=== PATIENT | female | born 1970 | race Caucasian/White ===

== ENCOUNTER 2016-03-03 19:50 | Inpatient (IN) | payer MEDICARE, OTHER ==
[~2016-03-03] VITALS: Ht 172.7 cm; Wt 76.6 kg
[~2016-03-03 19:50] MED LIST: AMPH30TA3 PO; ARIP30TA PO; GLIP5TAB26 PO; HYDR-4003 PO; INSU100V28 SUBQ; INSU100V7 SUBQ; LORA1TAB PO; METF1000 PO; PALI9TAB PO; SERT100T9 PO; SULF1TAB7 PO; ZLP5T PO
[2016-03-03 20:17] VITALS: BP 122/79; PULSE 107; RESP 18; O2SAT 98
--- NOTE | 2016-03-03 20:42 | ED.REPORT ---
HPI-General Illness Date of Service Mar 03, 2016 ED Provider: Mine Putnam MD History of Present Illness: Ms. Shira Cárdenas is a 45-year-old female past medical history significant for uncontrolled diabetes, MRSA cellulitis 10, ectopic , and significant history of psychiatric instability who presents to get evaluated emergency department for four-day history of left lower calcaneal abscess in 3 day history of left fifth metatarsal diabetic foot wound and cellulitis of the left foot today, who was seen at urgent care given 1 g of Rocephin in 1300 mL of an abscess and sent here. She denies fever or chills, vomiting, chest pain, shortness of breath, abdominal pain, diarrhea. She reports mild nausea severe left lower extremity pain and constipation. Nursing Notes Stated Complaint: DIABETIC FOOT SORES Chief Complaint: General Complaint Nursing Notes Reviewed: Yes Allergies: Coded Allergies: sitagliptin (Verified Allergy, Severe, hallucinations, 05/09/15) acetaminophen (Verified Adverse Reaction, Intermediate, n/v, 05/09/15) oxycodone (Verified Adverse Reaction, Intermediate, n/v, 05/09/15) Scheduled Amphet Asp/Amphet/D-Amphet (Adderall) 30 Mg Tablet 30 MG PO QID Aripiprazole (Abilify) 30 Mg Tablet 15 MG PO DAILY Glipizide ER (Glipizide ER) 5 Mg Tab.er.24 5 MG PO BID Insulin Glargine (Lantus U100 Insulin Vial) 100 Unit/Ml Vial 60 UNIT SUBQ BID Insulin Regular, Human (HUMulin-R U100 Insulin Vial) 100 Unit/1 Ml Vial 8 UNIT SUBQ TID-INSULIN Metformin (Glucophage) 1,000 Mg Tablet 1,000 MG PO BIDWM Paliperidone ER (Invega) 9 Mg Tablet.er 9 MG PO DAILY Sertraline HCl (Sertraline) 100 Mg Tablet 150 MG PO HS Sulfamethoxazole/Trimeth 800-160 mg (Bactrim DS) 1 Each Tablet 2 TABLET PO BID Scheduled PRN Hydrocodone-Acetaminophen 5-325 mg (Hydrocodone-Acetaminophen 5-325 mg) 1 Each Tablet 1 EACH PO Q6 PRN PRN For Pain Lorazepam (Lorazepam) 1 Mg Tablet 1 MG PO QID PRN PRN For Anxiety Zolpidem (Ambien) 5 Mg Tab 10 MG PO HS PRN PRN For Insomnia General Time Seen by MD: 20:40 Chief Complaint Other (Cellulitis) Sudden in Onset?: Yes Past Medical History MRSA 10x Dental Abscess Nephrolithiasis Psychiatric Surgery Ovarian ectopic Smoking 1 pack / day 30 years ETOH quit 17 years ago Marijuana - occasional Denies substance use Past Medical History Per old reports -DM type two -Bipolar disorder -Ectopic ovarian cyst -Kidney stone -Migraines -Depression Past Surgical History "Kidney surgery" per old reports Smoking History Current Every Day Smoker Social History Alcohol Use: Denies alcohol use Drug Use: Denies drug use Occupation lives with roommates Ambulatory Status Independent Review of Systems Full Review of Systems GI: Reports: Constipation, Nausea Musculoskeletal: Reports: Extremity pain (left foot) Complete sys rev & neg: except as marked. Physical Exam General: Pleasant lady sitting up in bed with left foot hanging off the bed, appears older than stated age, well-developed, well-nourished, appropriately interactive HEENT: Normocephalic, atraumatic. External ears without defect. Pupils equal, round, and reactive to light and accommodation. Anicteric sclerae, moist conjunctivae, and no lid lag. Oropharynx free of erythema and cobble stoning with moist mucosa. Poor dental health Neck: Supple with full range of motion. No jugular venous distension. No bruits. No lymphadenopathy or thyromegaly. Cardiovascular: Regular rate and rhythm with no murmurs, rubs, or gallops appreciated Pulmonary: Clear to auscultation bilaterally with no crackles, wheezes, or rhonchi. Normal respiratory effort with no use of accessory muscles. Abdomen: Bowel tones present. Soft, nontender, nondistended. No hepatosplenomegaly or masses appreciated. Extremities: No clubbing, cyanosis, edema, or lymphadenopathy appreciated. Left lower extremity has calcaneal 3 cm closed and raised wound as well as a left lateral mid fifth metatarsal wound from skin split and left foot dorsal erythema with early tracking up lower extremity. Skin: Normal temperature, turgor, and texture; no rash, ulcers, or subcutaneous nodules appreciated. Neurological: Cranial nerves grossly intact. Normal muscle strength, tone, and bulk. Reflexes, coordination, and sensory function within normal limits. No known gait impairment. Psychiatric: Normal mood and affect. Alert and oriented to person, place, and time. Vital Signs Vital Signs Date Time Temp Pulse Resp B/P Pulse Ox O2 Delivery O2 Flow Rate FiO2 03/03/16 20:17 36.6 107 18 122/79 98 Room Air Interpretation & Diagnostics Lab Results Interpretation Result Diagram: 03/03/16 2136 03/03/162135 Test 03/03/16 21:36 03/03/16 22:10 White Blood Count 9.1th/mm3 (3.8-10.1) Red Blood Count 4.56mil/mm3 (3.90-5.20) Hemoglobin 13.9g/dL (12.0-15.6) Hematocrit 39.9% (35.0-46.0) Mean Corpuscular Volume 87.5fL (81-100) Mean Corpuscular Hemoglobin 30.5pg (27.0-35.0) Mean Corpuscular Hemoglobin Concent 34.8% (32.0-37.0) Red Cell Distribution Width 12.5% (12.3-15.4) Platelet Count 168bil/L (150-400) Neutrophils (%) (Auto) 69.1% (40-74) Lymphocytes (%) (Auto) 23.0% (14-46) Monocytes (%) (Auto) 4.9% (4-12) Eosinophils (%) (Auto) 2.6% (0-5) Basophils (%) (Auto) 0.3% (0-3) Erythrocyte Sedimentation Rate 8mm/hr (0-32) Sodium Level 136mEq/L (134-144) Potassium Level 4.1mEq/L (3.5-5.2) Chloride Level 98mEq/L (97-108) Carbon Dioxide Level 25mmol/L (18-29) Blood Urea Nitrogen 12mg/dL (6-24) Creatinine 0.47mg/dL (0.57-1.00) Estimat Glomerular Filtration Rate 204mL/min (>59) Glucose Level 450mg/dL (60-99) Lactic Acid Level 1.7mmol/L (0.4-2.0) Calcium Level 8.8mg/dL (8.5-10.1) Total Bilirubin 0.3mg/dL (0.0-1.2) Aspartate Amino Transf (AST/SGOT) 9U/L (0-50) Alanine Aminotransferase (ALT/SGPT) 13U/L (0-32) Alkaline Phosphatase 117U/L (25-150) C-Reactive Protein 1.5mg/dL (0.0-0.5) Total Protein 6.6g/dL (6.4-8.4) Albumin 3.9g/dL (3.4-5.0) Urine HCG, Qualitative Negative (Negative) Re-Eval/Medical Decision Med Decision/Clinical Course Ms. Shira Cárdenas is a 45-year-old with significant on managed diabetes and many episodes of MRSA infections that required hospitalizations and IV antibiotics. She clearly has cellulitis of the left lower extremity as well as to large raised sites of infection. Differential includes cellulitis, osteomyelitis, MRSA infection, diabetic peripheral neuropathy, abscess. Concerned about osteomyelitis in this particular patient will most certainly be admitted for cellulitis and IV antibiotics. Obtaining CMP, CBC, lactic acid, MRSA swab, ESR, CRP, x-ray two-view of the lower extremity - white count normal, lactic acid negative, MRSA swab pending, CRP elevated 1.5, x-ray shows no signs of osteomyelitis, may consider MRI. Time of Eval: 22:00 Patient Status: Condition improved Re-Evaluation/Progress Note: Patient is rechecked. She reports that she is still in pain and is requesting Vicodin. Patient is informed of her lab results. She agrees with plan to admit. Counseled Regarding: Diagnosis, Lab results, Need for admission Discharge & Departure Primary Impression: Cellulitis Site of cellulitis: extremity Site of cellulitis of extremity: lower extremity Laterality: left Qualified Code: L03.116 - Cellulitis of left lower limb Additional Impression: Uncontrolled diabetes mellitus Disposition: ADMITTED TO HOSPITAL Discharge Condition All VS Reviewed: Yes Condition: Stable Referrals: NOPCP (PCP) Robson Attestation Portions of this note were transcribed by Radha Marshall. I, Dr. Putnam personally performed the history, physical exam and medical decision-making; I reviewed and confirmed the accuracy of the information in the transcribed note. Signed by: Robson Friedman, 03/03/16 2820. Attending Statement 45-year-old female with past medical history of insulin-dependent diabetes and MRSA infection here with pain, redness, swelling of left lower extremity. Exam: Gen: WA, NAD, A&Ox4 CV: RRR, no m/r/g Resp: CTAB, no wheezing Abd: soft, non tender, non distended, no rebound/guarding Ext: no clubbing, cyanosis, edema. Erythema of left foot over dorsal aspect of foot extending to left leg with mild lymphangitis. Sensation and motor intact but. 2+ DP and PT pulses to foot. Erythema is very warm to touch and very tender to palpation. There is no crepitus. 45-year-old female with diabetes and pain and redness to her foot. Differential diagnosis includes but is not limited to cellulitis versus osteomyelitis versus MRSA infection versus lymphangitis. Labs are remarkable only for hyperglycemia. However, given patient's previous history, I have admitted her to the hospital for IV antibiotics along with fluids. X-ray does not show any evidence of osteomyelitis. Patient is aware and amenable to plan. KYLAH MAY DO Mar 03, 2016 20:42 RADHA MARSHALL Mar 03, 2016 23:02 Mine Putnam MD Mar 04, 2016 02:50
[2016-03-03 21:47] LABS: BASOPHILS % (AUTO) 0.3 % (0-3); EOSINOPHILS % (AUTO) 2.6 % (0-5); MONOCYTES % (AUTO) 4.9 % (4-12); Mean Corpuscular Hemoglobin 30.5 pg (27.0-35.0); Mean Corpuscular Volume 87.5 fL (81-100); NEUTROPHILS % (AUTO) 69.1 % (40-74); Platelet Count 168 bil/L (150-400)
--- NOTE | 2016-03-03 22:04 | DRSVH ---
PROCEDURE: X-RAY LEFT FOOT, TWO VIEWS ([id number]) INDICATIONS: Cellulitis left foot TECHNIQUE: 2 views of the foot were acquired. COMPARISON: None. FINDINGS: Bones: No fractures or dislocations. No suspicious bony lesions. Soft tissues: No tibiotalar joint effusion. Achilles tendon appears normal. No soft tissue swellin g. IMPRESSION: No acute radiographic findings. No findings to suggest osteomyelitis. Please note, plain film is less sensitive in the acute phases of osteomyelitis. If there is high clinical suspicion for osteomyelitis, contrast MRI of the foot is recommended. Dictated by: Catherine Wells M.D. on 03/03/2016 at 22:02 Approved by: Catherine Wells M.D. on 03/03/2016 at 22:02
[2016-03-03] MEDS ORDERED: HYDROcodone-APAP 5-325 mg Tablet PO ONE (22:05)
[2016-03-03] MEDS ORDERED: Clindamycin Inj 900 MG in IV Premix 1 EACH IV ONE (23:00)
[2016-03-03 23:34] LABS: ERYTHROCYTE SEDIMENTATION RATE 8 mm/hr (0-32)
[2016-03-03] MEDS ORDERED: Alum-Mag Hydrox-Simeth 30 mL Suspension PO PRN (23:55)
[2016-03-03] MEDS ORDERED: Polyethylene Glycol (PEG) 17 Gm Powder PO PRN (23:55)
[2016-03-03] MEDS ORDERED: Ondansetron 2 mg/mL 2 mL Inj IVPUSH PRN (23:55)
[2016-03-04] MEDS: Vancomycin Dose per Pharmacist XX SCH ×2 (00:50→08:23)
[2016-03-04] MEDS ORDERED: Glucose 40% Oral Gel 15 Gm Tube PO PRN (00:50)
--- NOTE | 2016-03-04 01:01 | PCM.HPMED ---
Subjective Date of Service Mar 04, 2016 Primary Provider: Admitting Physician: Shea Weaver DO Primary Care Physician: Thelma Attending Physician: Shea Weaver DO Admit Status: From the Emergency Department Chief Complaint: foot infection History of Present Illness: 45yo female with a history of medical noncompliance, MRSA infection and uncontrolled diabetes mellitus admitted with diabetic foot infection / cellulitis. Patient states that 3-4 days ago she began having increased erythema and pain in her left lower extremity. She denies fever, chills, lightheadedness, dizziness. No discharge has been visualized however Ms. Cárdenas is concerned that there is an abscess underneath the calcaneal callus on the LLE. She was seen in urgent care prior to ED presentation and given 1gm ceftriaxone. On presentation vitals signs wnl except mildly elevated HR at 107, CBC wnl, and bmp with elevated blood glucose of 450, crp 1.5 Review of Systems: complete ROS obtained. positive as per hpi, otherwise negative. Allergies Coded Allergies: sitagliptin (Verified Allergy, Severe, hallucinations, 05/09/15) acetaminophen (Verified Adverse Reaction, Intermediate, n/v, 05/09/15) oxycodone (Verified Adverse Reaction, Intermediate, n/v, 05/09/15) Home Medications Amphet Asp/Amphet/D-Amphet (Adderall) 30 Mg Tablet 30 MG PO QID (Reported) Aripiprazole (Abilify) 30 Mg Tablet 30 MG PO DAILY - decreased dose to15mg daily Glipizide ER (Glipizide ER) 5 Mg Tab.er.24 5 MG PO BID (Reported) Insulin Glargine (Lantus U100 Insulin Vial) 100 Unit/Ml Vial 60 UNIT SUBQ BID - has not taken recently Insulin Regular, Human (HUMulin-R U100 Insulin Vial) 100 Unit/1 Ml Vial 8 UNIT SUBQ TID-INSULIN - has not taken recently Metformin (Glucophage) 1,000 Mg Tablet 1,000 MG PO BIDWM (Reported) Paliperidone ER (Invega) 9 Mg Tablet.er 9 MG PO DAILY (Reported) Sertraline HCl (Sertraline) 100 Mg Tablet 150 MG PO HS (Reported) Sulfamethoxazole/Trimeth 800-160 mg (Bactrim DS) 1 Each Tablet 2 TABLET PO BID - states PRN As needed Hydrocodone-Acetaminophen 5-325 mg (Hydrocodone-Acetaminophen 5-325 mg) 1 Each Tablet 1 EACH PO Q6 PRN PRN For Pain (Reported) Lorazepam (Lorazepam) 1 Mg Tablet 1 MG PO QID PRN PRN For Anxiety (Reported) Zolpidem (Ambien) 5 Mg Tab 10 MG PO HS PRN PRN For Insomnia (Reported) Additional med instructions keep a close log of your blood sugars 3-4 times daily and followup with your primary care provider in 4-5 days to adjust your insulin dose and diabetic medications. PMH Multiple abscesses including abscess of the back February 2015, right breast mastitis secondary to MRSA 2010 Diabetes mellitus, insulin using Cervical radiculopathy Nephrolithiasis Psychiatric, bipolar Surgical History Drainage of abscess on right breast, 2010 Family History Patient reports that both mother and father suffered from cardiac disease Social History Hx Alcohol Use: No Hx Substance Use: No Smoking Status: Current Every Day Smoker Exam Vital Signs Vital Sign - Last Date Time Temp Pulse Resp B/P Pulse Ox O2 Delivery O2 Flow Rate FiO2 03/03/16 20:17 36.6 107 18 122/79 98 Room Air Exam General: Alert, Oriented x3, Cooperative, No acute Distress Eyes: PERRLA, Scleral Anicteric Mouth: Mouth Normal, Mucous Membranes Moist/[place], poor dentition, tongue ring Neck: Supple, no Thyromegaly, trachea central. Chest & Lungs: CTA bilat, no rhonchi, wheezes. rales Cardiovascular: no murmur, rubs, gallops, Regular Rate/Rhythm, (No JVD) Pulses: Radial (present and equal), Dorsalis Pedi (present and equal) Abdomen: Soft, Non-tender, Non-distended, Normoactive bowel tones. Musculoskeletal: Unremarkable. Normal range of motion, no swollen or erythematous joints Extremities: erythema LLE within marked area with calcaneal calus, areas of dry skin, dry, tender to touch Skin: erythema LLE Neurological: Grossly neurologically intact, Normal Speech, Sensation Intact. Lymphatic: Lymph nodes Cervical and Axillary not palpable. Lab and Diagnostics Result Diagram: 03/03/16213503/03/162135 Microbiology cultures pending X-Rays, CTs and MRIs Patient Name: ANGELA CÁRDENAS MR#: [id number] [place] [facility] [place] Phys: KYLAH MAY DO Date of Service: 03/03/162108 PROCEDURE: X-RAY LEFT FOOT, TWO VIEWS ([id number]) INDICATIONS: Cellulitis left foot TECHNIQUE: 2 views of the foot were acquired. COMPARISON: None. FINDINGS: Bones: No fractures or dislocations. No suspicious bony lesions. Soft tissues: No tibiotalar joint effusion. Achilles tendon appears normal. No soft tissue swelling. IMPRESSION: No acute radiographic findings. No findings to suggest osteomyelitis. Please note, plain film is less sensitive in the acute phases of osteomyelitis. If there is high clinical suspicion for osteomyelitis, contrast MRI of the foot is recommended. Dictated by: Catherine Wells M.D. on 03/03/2016 at 22:02 Approved by: Catherine Wells M.D. on 03/03/2016 at 22:02 Assessment & Plan 45yo female with a history of MRSA infection and uncontrolled diabetes mellitus admitted with diabetic foot infection / cellulitis Diabetic foot infection / Cellulitis, acute, present on admission -moderate infection not meeting sepsis / SIRS criteria, h/o medical non- compliance -pt with strong history of MRSA infections, seen in urgent care and given 1g ceftriaxone, clindamycin given in ED -will continue abx coverage with ceftriaxone and vancomycin (pharm to dose) -consideration to podiatry consult to assess calcaneal area Medical non-compliance, chronic -patient with history of medical non-compliance -has not re-established with mental health provider -not currently with PCP -does not have access to all psych medications at this time, last time with all medications 2-3 weeks prior to admission History of MRSA, ongoing - MRSA screen pending - Contact precautions in place Uncontrolled diabetes mellitus, chronic, ongoing - Home dosing reported to be 50 units glargine twice daily; decreased to 40 units, can adjust accordingly - hasn't taken insulin recently - Patient also reports 8 units regular insulin before each meal and hasn't taken this recently, holding preprandial insulin - Medium correction SSI - Hemoglobin A1c ordered - Diabetic diet Tobacco dependence, chronic, ongoing - Patient reports significant tobacco use 1 pack per day for many years - 21 mg nicotine patch available as needed - Discussed tobacco cessation, patient not considering quitting Anxiety/depression, chronic, managed - Continue home dosing of Adderall 30 mg 4 times daily, paliperidone 9 mg daily , lorazepam 1 mg 4 times daily as needed, aripiprazole 15 mg daily (decreased recently) - Holding Ambien 10 mg nightly at this time Pain Evaluation: Adequate Pain Control GI Prophylaxis: Not indicated VTE Prophylaxis: Sub-Q Heparin (Unfractionated) Resuscitation Status: CPR: Attempt Resuscitation Shea Weaver DO Mar 04, 2016 01:01
[2016-03-04 01:16] VITALS: BP 141/83; PULSE 100; RESP 16; O2SAT 96
[2016-03-04] MEDS ORDERED: 0.9% Sodium Chloride 250 ML ONE (01:18)
[2016-03-04 01:42] VITALS: BP 131/92; PULSE 96; RESP 18; O2SAT 92
[2016-03-04] MEDS: LORazepam 1 mg Tablet PO PRN ×2 (01:57→12:58)
[2016-03-04] MEDS: Heparin 5,000 Unit/mL Inj SUBQ SCH ×2 (01:57→08:20)
[2016-03-04] MEDS: HYDROcodone-APAP 5-325 mg Tablet PO PRN ×3 (02:12→16:44)
[2016-03-04] MEDS ORDERED: Insulin LISPRO 300 Unit/3 mL Inj SUBQ ONE (02:15)
--- NOTE | 2016-03-04 03:18 | NUR ---
Admit Patient admitted to room 3023 at 0115 from ED. Med list completed by admit RNJuan. Patient is alert and oriented. IV antibiotics infusing per MD order. Patient oriented to room, call light, plan of care, hospital policies, intentional rounding. Call light within reach- patient agreeable to use for needs.
--- NOTE | 2016-03-04 04:38 | PCM.CONPHA ---
Subjective Date of Service: Mar 04, 2016 Requesting Provider: Shea Weaver DO foot infection History of Present Illness diabetic foot cellulitis, hx of MRSA Reason for Pharmacy Consult: Vancomycin Dosing Objective Vital Signs Date Time Temp Pulse Resp B/P Pulse Ox O2 Delivery O2 Flow Rate FiO2 03/04/16 01:42 36.7 96 18 131/92 92 Room Air 03/04/16 01:16 36.6 100 16 141/83 96 Room Air 03/03/16 20:17 36.6 107 18 122/79 98 Room Air Weight (Kilograms): 76.600 Height (Feet): 5 Height (Inches): 8.00 Test 03/03/16 21:36 03/03/16 22:10 White Blood Count 9.1th/mm3 (3.8-10.1) Red Blood Count 4.56mil/mm3 (3.90-5.20) Hemoglobin 13.9g/dL (12.0-15.6) Hematocrit 39.9% (35.0-46.0) Mean Corpuscular Volume 87.5fL (81-100) Mean Corpuscular Hemoglobin 30.5pg (27.0-35.0) Mean Corpuscular Hemoglobin Concent 34.8% (32.0-37.0) Red Cell Distribution Width 12.5% (12.3-15.4) Platelet Count 168bil/L (150-400) Neutrophils (%) (Auto) 69.1% (40-74) Lymphocytes (%) (Auto) 23.0% (14-46) Monocytes (%) (Auto) 4.9% (4-12) Eosinophils (%) (Auto) 2.6% (0-5) Basophils (%) (Auto) 0.3% (0-3) Erythrocyte Sedimentation Rate 8mm/hr (0-32) Sodium Level 136mEq/L (134-144) Potassium Level 4.1mEq/L (3.5-5.2) Chloride Level 98mEq/L (97-108) Carbon Dioxide Level 25mmol/L (18-29) Blood Urea Nitrogen 12mg/dL (6-24) Creatinine 0.47mg/dL (0.57-1.00) Estimat Glomerular Filtration Rate 204mL/min (>59) Glucose Level 450mg/dL (60-99) Lactic Acid Level 1.7mmol/L (0.4-2.0) Calcium Level 8.8mg/dL (8.5-10.1) Total Bilirubin 0.3mg/dL (0.0-1.2) Aspartate Amino Transf (AST/SGOT) 9U/L (0-50) Alanine Aminotransferase (ALT/SGPT) 13U/L (0-32) Alkaline Phosphatase 117U/L (25-150) C-Reactive Protein 1.5mg/dL (0.0-0.5) Total Protein 6.6g/dL (6.4-8.4) Albumin 3.9g/dL (3.4-5.0) Urine HCG, Qualitative Negative (Negative) Assessment/Plan Assessment/Plan A/ - 45 y/o female patient admitted in for diabetic foot cellulitis, patient has history of MRSA that required to treat empirically with Vancomycin - WBC: 9.1, afebrile - Blood cultures and MRSA screen: pending - Wt: 75.9 kg, ht: 172.7 cm, SCr: 0.47 mg/dL, estimated clearance ~ 130 mls/ min (ABW), t1/2 ~ 6 hrs, Vd: 53 L - Target trough: 10-15 - Received clindamycin once in ED, and comitant abx: ceftriaxone P/ - Give vancomycin loading dose 1.5G iv once, then 1 G iv q8h. Trough level ordered before 4th dose @0100 on 03/05. Pharmacy will continue to follow and make necessary adjustment. Thank you Vincent Arzate, PharmD, [facility] Adama Arzate Mar 04, 2016 04:38
[2016-03-04] MEDS: Amphetamines (Mixed) 20 mg Tablet PO SCH ×4 (06:01→20:50)
[2016-03-04 06:38] VITALS: BP 120/80; PULSE 91; RESP 18; O2SAT 96
[2016-03-04] MEDS ORDERED: Insulin GLARgine 100 Unit/mL Syringe SUBQ SCH (08:00)
[2016-03-04] MEDS: Insulin LISPRO 300 Unit/3 mL Inj SUBQ SCH ×4 (08:16→21:10)
[2016-03-04] MEDS: PALIPERIDONE 9 MG PO SCH (08:20)
[2016-03-04] MEDS ORDERED: Influenza (Adult) Vaccine 0.5 mL Syringe IM ONE (08:30)
[2016-03-04] MEDS: cefTRIAXone Inj 1,000 MG in IV Premix 1 EACH IV SCH (08:58)
[2016-03-04] MEDS: Vancomycin Inj 1,000 MG in IV Premix 1 EACH IV SCH ×2 (10:04→17:42)
--- NOTE | 2016-03-04 13:10 | NUR ---
Invega not available Patient has order for Invega. Pharmacy called and reported to nurse medication is unavailable from pharmacy. Patient has been informed of medication not available from pharmacy and asked if someone would be able to bring in medication from home. Patient said she understood and would ask someone.
[2016-03-04 15:01] VITALS: BP 135/93; PULSE 95; RESP 14; O2SAT 96
--- NOTE | 2016-03-04 16:28 | PCM.PNMED ---
Subjective Date of Service Mar 04, 2016 Subjective Patient feeling better, with less pain reported positive BCX with gram-negative Rods, which was done in urgent care prior to admission pt remained afebrile Exam Vital Signs Vital Sign - Last Date Time Temp Pulse Resp B/P Pulse Ox O2 Delivery O2 Flow Rate FiO2 03/04/16 15:01 36.6 95 14 135/93 96 Room Air Intake and Output 03/03/16 03/03/16 03/04/16 Cumulative From/Thru 15:00 23:00 07:00 03/03/16:17 - 03/04/16 06:57 Intake Total 957 ml 957 ml Output Total 1350 ml 1350 ml Balance -393 ml -393 ml Intake Oral 400 ml 400 ml IV Total 557 ml 557 ml Output Urine Total 1350 ml 1350 ml Exam NAD, comfortably laying down on the bed no JVD, MMM, no LAD RRR, nl s1, s2 no mrg CTAB, no w,c S,ND,NT,normoactive BS+ Left calcaneus discolored, tender, not fluctuant, less erythema on Lt food compared to marked line previously done IVs and Medications Medications Reviewed: Medications were reviewed in detail Lab and Diagnostics Result Diagram: 03/03/16213503/04/16 0750 Microbiology cultures pending X-Rays, CTs and MRIs Patient Name: ANGELA ARGUELLES MR#: [id number] [place] [facility] [place] Phys: KYLAH MAY DO Date of Service: 03/03/162108 PROCEDURE: X-RAY LEFT FOOT, TWO VIEWS ([id number]) INDICATIONS: Cellulitis left foot TECHNIQUE: 2 views of the foot were acquired. COMPARISON: None. FINDINGS: Bones: No fractures or dislocations. No suspicious bony lesions. Soft tissues: No tibiotalar joint effusion. Achilles tendon appears normal. No soft tissue swelling. IMPRESSION: No acute radiographic findings. No findings to suggest osteomyelitis. Please note, plain film is less sensitive in the acute phases of osteomyelitis. If there is high clinical suspicion for osteomyelitis, contrast MRI of the foot is recommended. Dictated by: Catherine Wells M.D. on 03/03/2016 at 22:02 Approved by: Catherine Wells M.D. on 03/03/2016 at 22:02 Assessment & Plan 45yo female with a history of MRSA infection and uncontrolled diabetes mellitus admitted with diabetic foot infection / cellulitis acute, active Diabetic foot infection / Cellulitis, acute, present on admission -moderate infection not meeting sepsis / SIRS criteria, h/o medical non- compliance -pt with strong history of MRSA infections, seen in urgent care and given 1g ceftriaxone, clindamycin given in ED -Although reported both culture positive for gram-negative rods, since pt is clinical improving will continue abx coverage with ceftriaxone and vancomycin ( pharm to dose) -will consider podiatry consult to assess calcaneal area Medical non-compliance, chronic -patient with history of medical non-compliance -has not re-established with mental health provider -not currently with PCP -does not have access to all psych medications at this time, last time with all medications 2-3 weeks prior to admission -Had lengthy discussion about importance of sugar control, medication today History of MRSA, ongoing - MRSA screen pending - Contact precautions in place Uncontrolled diabetes mellitus, chronic, remained hypoglycemic fasting glc 376 in CMP today. - Home dosing reported to be 50 units glargine twice daily; decreased to 40 units, increase back to 50unit today - Patient also reports 8 units regular insulin before each meal and hasn't taken this recently, holding preprandial insulin - Medium correction SSI - Hemoglobin A1c ordered - Diabetic diet Tobacco dependence, chronic, ongoing - Patient reports significant tobacco use 1 pack per day for many years - 21 mg nicotine patch available as needed - Discussed tobacco cessation, patient not considering quitting Anxiety/depression, chronic, managed - Continue home dosing of Adderall 30 mg 4 times daily, paliperidone 9 mg daily , lorazepam 1 mg 4 times daily as needed, aripiprazole 15 mg daily (decreased recently) - Holding Ambien 10 mg nightly at this time dispo: likely 1-2days, needs strong outpatient follow-up DVT prophylaxis switch to LMWH qd Full code Diet - diabetic GI Prophylaxis: Not indicated VTE Prophylaxis: Sub-Q Heparin (Unfractionated) Resuscitation Status: CPR: Attempt Resuscitation Time spent 35 minutes Rinku Miranda MD Mar 04, 2016 16:28
[2016-03-04 21:02] VITALS: BP 129/85; PULSE 98; RESP 18; O2SAT 96
[2016-03-04] MEDS: Insulin GLARgine 100 Unit/mL Syringe SUBQ SCH (21:09)
[2016-03-05] MEDS ORDERED: Vancomycin Serum Trough XX ONE (01:00)
[2016-03-05] MEDS: HYDROcodone-APAP 5-325 mg Tablet PO PRN ×4 (01:22→21:00)
[2016-03-05] MEDS: Vancomycin Inj 1,000 MG in IV Premix 1 EACH IV SCH (02:19)
[2016-03-05] MEDS: LORazepam 1 mg Tablet PO PRN ×3 (02:26→21:00)
--- NOTE | 2016-03-05 03:29 | PCM.PHAPRO ---
Progress Date of Service: Mar 05, 2016 Requesting Provider: Shea Weaver DO foot infection A/ - 45 y/o female patient is on day 2 receiving Vancomycin ( 1 g iv q8h) and ceftriaxone to treat diabetic foot cellulitis - Blood cultures drawn at urgent care prior to admission showed positive for Gram negative rods, MRSA screen is still pending, blood cultures drawn in house showed no growth last 24 hrs - Patient is remain afebrile, feeling better, no pain - All Vancomycin doses given on time, trough drawn appropriately, trough level is low @ 7.4. The night nurse already administrated next dose of 1G @0200 P/ - Increased Vancomycin to 1.25 G iv q8, starts @ 0830 ( 6 hours from last dose given). Trough level ordered @ 0000 03/06 Pharmacy will continue to follow. Vincent Arzate, PharmD, [facility] Mar 05, 2016 03:29
[2016-03-05 05:04] VITALS: BP 144/94; PULSE 91; RESP 18; O2SAT 96
[2016-03-05] MEDS: Amphetamines (Mixed) 20 mg Tablet PO SCH ×4 (06:10→20:59)
[2016-03-05 06:28] LABS: BASOPHILS % (AUTO) 0.7 % (0-3); EOSINOPHILS % (AUTO) 3.1 % (0-5); MONOCYTES % (AUTO) 7.4 % (4-12); Mean Corpuscular Hemoglobin 29.5 pg (27.0-35.0); Mean Corpuscular Volume 88.4 fL (81-100); NEUTROPHILS % (AUTO) 57.6 % (40-74); Platelet Count 165 bil/L (150-400)
[2016-03-05 06:48] LABS: Magnesium 1.8 mg/dL (1.6-2.6); Phosphorus 3.3 mg/dL (2.5-4.9)
[2016-03-05] MEDS: Insulin LISPRO 300 Unit/3 mL Inj SUBQ SCH ×4 (07:35→20:50)
[2016-03-05] MEDS: Insulin GLARgine 100 Unit/mL Syringe SUBQ SCH ×2 (07:35→20:50)
[2016-03-05] MEDS: cefTRIAXone Inj 1,000 MG in IV Premix 1 EACH IV SCH (07:36)
[2016-03-05] MEDS: PALIPERIDONE 9 MG PO SCH (07:41)
[2016-03-05] MEDS: Vancomycin Dose per Pharmacist XX SCH (08:30)
--- NOTE | 2016-03-05 11:28 | PCM.PNMED ---
Subjective Date of Service Mar 05, 2016 Subjective pt still in significant pain Exam Vital Signs Vital Sign - Last Date Time Temp Pulse Resp B/P Pulse Ox O2 Delivery O2 Flow Rate FiO2 03/05/16 05:04 36.6 91 18 144/94 96 Room Air Intake and Output 03/04/16 03/04/16 03/05/16 Cumulative From/Thru 15:00 23:00 07:00 03/03/16 20:17 - 03/05/16 05:06 Intake Total 1150 ml 477 ml 2584 ml Output Total 1600 ml 2950 ml Balance -450 ml 477 ml -366 ml Intake Oral 777 ml 1177 ml IV Total 373 ml 477 ml 1407 ml Output Urine Total 1600 ml 2950 ml Exam NAD, comfortably laying down on the bed no JVD, MMM, no LAD RRR, nl s1, s2 no mrg CTAB, no w,c S,ND,NT,normoactive BS+ Left calcaneus discolored, tender, mildly fluctuant, less erythema on Lt food compared to marked line previously done lateral forefoot around 5th toe tender, discolored IVs and Medications Medications Reviewed: Medications were reviewed in detail Lab and Diagnostics Result Diagram: 03/05/1615 03/05/16 0615 Microbiology cultures pending X-Rays, CTs and MRIs Patient Name: ANGELA ARGUELLES MR#: [id number] Location: [facility] Ordering Phys: KYLAH MAY DO Date of Service: 03/03/162108 PROCEDURE: X-RAY LEFT FOOT, TWO VIEWS ([id number]) INDICATIONS: Cellulitis left foot TECHNIQUE: 2 views of the foot were acquired. COMPARISON: None. FINDINGS: Bones: No fractures or dislocations. No suspicious bony lesions. Soft tissues: No tibiotalar joint effusion. Achilles tendon appears normal. No soft tissue swelling. IMPRESSION: No acute radiographic findings. No findings to suggest osteomyelitis. Please note, plain film is less sensitive in the acute phases of osteomyelitis. If there is high clinical suspicion for osteomyelitis, contrast MRI of the foot is recommended. Dictated by: Catherine Wells M.D. on 03/03/2016 at 22:02 Approved by: Catherine Wells M.D. on 03/03/2016 at 22:02 Assessment & Plan 45yo female with a history of MRSA infection and uncontrolled diabetes mellitus admitted with diabetic foot infection / cellulitis acute, active Diabetic foot infection / Cellulitis, acute, present on admission -moderate infection not meeting sepsis / SIRS criteria, h/o medical non- compliance -pt with strong history of MRSA infections, seen in urgent care and given 1g ceftriaxone, clindamycin given in ED -Although reported both culture positive for gram-negative rods, since pt is clinical improving will continue abx coverage with ceftriaxone and vancomycin ( pharm to dose) -get MRI to rule out OM, get Utox, will consider podiatry consult to assess calcaneal area Medical non-compliance, chronic -patient with history of medical non-compliance -has not re-established with mental health provider -not currently with PCP -does not have access to all psych medications at this time, last time with all medications 2-3 weeks prior to admission -Had lengthy discussion about importance of sugar control, medication today History of MRSA, ongoing - MRSA screen pending - Contact precautions in place Uncontrolled diabetes mellitus, chronic, remained hypoglycemic fasting glc 376 in CMP today. - Home dosing reported to be 50 units glargine twice daily; decreased to 40 units, increase back to 50unit today - Patient also reports 8 units regular insulin before each meal and hasn't taken this recently, holding preprandial insulin - Medium correction SSI - Hemoglobin A1c ordered - Diabetic diet Tobacco dependence, chronic, ongoing - Patient reports significant tobacco use 1 pack per day for many years - 21 mg nicotine patch available as needed - Discussed tobacco cessation, patient not considering quitting Anxiety/depression, chronic, managed - Continue home dosing of Adderall 30 mg 4 times daily, paliperidone 9 mg daily , lorazepam 1 mg 4 times daily as needed, aripiprazole 15 mg daily (decreased recently) - Holding Ambien 10 mg nightly at this time dispo: likely 1-2days, needs strong outpatient follow-up DVT prophylaxis switch to LMWH qd Full code Diet - diabetic GI Prophylaxis: Not indicated VTE Prophylaxis: Sub-Q Heparin (Unfractionated) Resuscitation Status: CPR: Attempt Resuscitation Time spent 35min Rinku Miranda MD Mar 05, 2016 11:28
[2016-03-05 11:57] VITALS: BP 114/72; PULSE 93; RESP 18; O2SAT 98
--- NOTE | 2016-03-05 13:57 | NUR ---
MR of foot Patient had order for MR of foot. Patient was taken for MR. Patient was unable to have MR preformed due to the position the foot needed to be in and pain. Patient brought back up to [facility] and was administered 2 Vicodin. MR barraza said he would try again after pain medications started to work. Addendum: 03/05/16 at 1537 by GARFIELD CERVANTES RN Patient was able to tolerate MR of left foot at second attempt.
--- NOTE | 2016-03-05 16:52 | DRSVH ---
PROCEDURE: MRI FOREFOOT LEFT WITH AND WITHOUT CONTRAST ([id number]) INDICATIONS: Calcaneal and first metatarsal osteomyelitis. TECHNIQUE: Multiplanar, multisequence MR imaging of the forefoot and hindfoot was obtained without a nd with intravenous contrast. COMPARISON: [facility], CR, XR FOOT 2VW LT, 03/03/2016, 21:29. FINDINGS: Image quality: Motion artifact on multiple imaging sequences does result in image degradation in sub optimal evaluation for subtle bony and soft tissue abnormalities. Bones and joints: There is no displaced fracture or dislocation evident involving the osseous struct ures of the left forefoot, midfoot, or hindfoot. The midfoot and hindfoot bones are well-visualized and within normal limits without evidence of an acute fracture. Additionally, no abnormal signal or enhancement is evident involving the midfoot or hindfoot bones. Evaluation of the forefoot bones is limited on this examination related to motion artifact on all of the imaging sequences that includes the forefoot. Specifically, evaluation of the toes is inadequate on this examination. There is ques tionable edema involving the head of the fifth metatarsal and the corresponding proximal phalanx of t fifth metatarsal (image 19, series 20). There is questionable fracture involving the proximal pha lanx of the fifth toe. The other fluid sensitive sequences through the forefoot are in suboptimal for evaluation of subtle marrow edema; however, there may be edema involving the phalanges of the fourth toe and fifth toe with corresponding enhancement. It is uncertain whether this edema is real or art ifactual related to inhomogeneous fat suppression, as no definitive abnormal signal is appreciated on the conventional T1 images before contrast without fat suppression. Soft tissues: There is prominent soft tissue edema with corresponding enhancement identified along t he lateral margin of the forefoot, which predominantly is seen along the distal margins of the fourth and fifth tarsometatarsal regions. These findings are more pronounced along the fifth tarsometatars al region. Phlegmonous soft tissue changes with probable small loculated fluid collection along the lateral margin of the head of the fifth metatarsal is present, which demonstrates corresponding enhan cement and tracks very near the level of the bone. The lung the dorsal aspect of the proximal phalan x of the fifth toe, there is a 1 cm structure demonstrating decreased signal intensity on all imaging sequences without surrounding artifact (image 18, series 17 and image 18, series 24), which appears to represent a foreign body. There is a 2.0 x 1.3 cm fluid collection identified underlying the skin along the posterior margin of the heel (image 14, series 8) that is contained within the subcutaneous tissues. This is not necess arily abut the calcaneus. No definite additional fluid collections are evident within the forefoot o r hindfoot. No significant atrophy of the intrinsic muscles of the forefoot are appreciated. The ligamentous str uctures of the forefoot are not well evaluated related to motion. The tendons of the forefoot appear to be within normal limits. The Lisfranc ligament appears intact. The Achilles tendon is within no rmal limits. Mild thickening of the medial band of the plantar fascia is present. IMPRESSION: 1. Prominent soft tissue edema along the lateral margin of the forefoot, centered at the fourth and fifth metatarsophalangeal joints without a drainable fluid collection evident. While this study is no t diagnostic for osteomyelitis within this region, there likely is osteomyelitis of the head of the f ifth metatarsal and the phalanges of the fifth toe. Artifact from motion and inhomogeneous fat suppr ession limits evaluation of the other toes. However, there is suspicion for osteomyelitis within the third and fourth toes as well. A 3 phase bone scan or repeat MRI when the patient is able to tolera te holding still to more definitively ascertain the bones within this region is recommended. 2. There appears to be a thin 1 cm foreign body (non metallic) along the dorsal aspect of the proxim al phalanx of the fifth toe. Please correlate clinically. 3. Small posterior heel soft tissue abscess. No evidence of calcaneal osteomyelitis. 4. Questionable proximal phalangeal fifth toe fracture. Oblique x-ray imaging of the forefoot would be helpful for better evaluation. Dictated by: Tapan Ma M.D. on 03/05/2016 at 15:31 Approved by: Tapan Ma M.D. on 03/05/2016 at 15:51
--- NOTE | 2016-03-05 17:05 | NUR ---
Social Work: Initial Assessment Data: Pt is a 45 y/o female admitted for cellulitis. Pt's PCP is not listed. Pt's insurance is [employer], with Medicare secondary. Pt readmit score is 4. AIRSET MOLDER met with pt at bedside, role explained. Pt states that she lives in her car by herself in [place]. Pt states that she has no DPOA, and did not want information. She states she has no history of HH or SNF, no LTC or VA benefits, and is not a caregiver for another. Pt states that she would like homelessness resources. No further d/c planning anticipated at this time. AIRSET MOLDER will continue to follow if needs arise. Assessment: Pt who is independent at baseline, homeless. Plan: Pt will d/c home via POV with her ex when medically stable. Pt states that she would like homelessness resources, AIRSET MOLDER will provide on 03/06. No further d/c planning anticipated at this time. AIRSET MOLDER will continue to follow if needs arise. MOISE Hernandez Addendum: 03/05/16 at 1710 by DEVYN BROWN Amended: Links added.
[2016-03-05 17:17] VITALS: BP 159/99; PULSE 92; RESP 20; O2SAT 96
[2016-03-05 20:18] VITALS: BP 130/78; PULSE 96; RESP 20; O2SAT 94
[2016-03-06] MEDS ORDERED: Vancomycin Serum Trough XX ONE
[2016-03-06] MEDS ORDERED: 0.9% Sodium Chloride 250 ML ONE (01:16)
[2016-03-06] MEDS ORDERED: Vancomycin Inj 500 MG in Dextrose 5% 100 ML IV ONE (02:15)
[2016-03-06 04:17] VITALS: BP 117/80; PULSE 94; RESP 20; O2SAT 95
[2016-03-06] MEDS: HYDROcodone-APAP 5-325 mg Tablet PO PRN ×4 (04:21→22:23)
[2016-03-06] MEDS: LORazepam 1 mg Tablet PO PRN ×3 (04:21→22:23)
[2016-03-06 07:29] LABS: BASOPHILS % (AUTO) 0.4 % (0-3); EOSINOPHILS % (AUTO) 3.4 % (0-5); MONOCYTES % (AUTO) 8.1 % (4-12); Mean Corpuscular Volume 88.2 fL (81-100); NEUTROPHILS % (AUTO) 60.7 % (40-74); Platelet Count 166 bil/L (150-400)
[2016-03-06 07:42] LABS: Magnesium 1.9 mg/dL (1.6-2.6); Phosphorus 3.6 mg/dL (2.5-4.9)
[2016-03-06] MEDS: Insulin LISPRO 300 Unit/3 mL Inj SUBQ SCH ×4 (07:50→21:46)
[2016-03-06] MEDS: Insulin GLARgine 100 Unit/mL Syringe SUBQ SCH ×2 (08:00→21:47)
[2016-03-06] MEDS: Amphetamines (Mixed) 20 mg Tablet PO SCH ×2 (08:07→11:55)
[2016-03-06] MEDS ORDERED: cefTRIAXone Inj 1,000 MG in Dextrose 5% Minibag Plus 50 ML IV SCH (08:30)
[2016-03-06] MEDS: PALIPERIDONE 9 MG PO SCH (08:30)
[2016-03-06] MEDS ORDERED: VANCOMYCIN IV SCH (08:30)
[2016-03-06] MEDS ORDERED: DEXTROSE 50% IV SCH (08:30)
--- NOTE | 2016-03-06 13:02 | NUR ---
Wound Care [facility] Received wound care evaluation order for diabetic ulcers to patient's left foot, present on admission. Assessment reveals patient with intact, black areas of fluctuance to lateral 5th metatarsal and left lateral heel. MRI results suspicious of osteomyelitis to 3rd, 4th, and 5th toes with possible foreign body to 5th proximal phalanx. Blisters intact. Patient with significant dry, thick skin to yumi feet with multiple skin fissures noted. Ulcer to left lateral 5th metatarsal measures 3cm W x 1cm L x 0.2cm raised. Dark area measures 1.4cm W x 0.7cm L x 0.2cm raised. Ulcer to left heel measures 3cm W x 3.7cm L x 0.5cm raised. Podiatry consult ordered for today. No bandages applied due to no open areas noted. Will defer additional wound care and assessment until after podiatry referral.
--- NOTE | 2016-03-06 13:30 | NUR ---
Transfer transfer of pt from [facility], report received from tammie lucas RN. Pt stable on arrival and w/o complaint at 1330. Fell asleep in bed. all belongings with pt.
--- NOTE | 2016-03-06 14:07 | PCM.PNMED ---
Subjective Date of Service Mar 06, 2016 Subjective pt utox positive for Amphetamine MRI suggestive of OM on multiple areas, ID/podiatry consulted for further recs pt is eating well, denied significant pain on left toe Exam Vital Signs Vital Sign - Last Date Time Temp Pulse Resp B/P Pulse Ox O2 Delivery O2 Flow Rate FiO2 03/06/16 04:17 36.6 94 20 117/80 95 Room Air Intake and Output 03/05/16 03/05/16 03/06/16 Cumulative From/Thru 15:00 23:00 07:00 03/03/16 20:17 - 03/06/16 05:47 Intake Total 1600 ml 482 ml 1450 ml 6116 ml Output Total 1400 ml 4350 ml Balance 200 ml 482 ml 1450 ml 1766 ml Intake Oral 1600 ml 1450 ml 4227 ml IV Total 482 ml 1889 ml Output Urine Total 1400 ml 4350 ml # Voids 4 4 Exam NAD, comfortably laying down on the bed no JVD, MMM, no LAD RRR, nl s1, s2 no mrg CTAB, no w,c S,ND,NT,normoactive BS+ Left calcaneus discolored, tender, mildly fluctuant, less erythema on Lt food compared to marked line previously done IVs and Medications Medications Reviewed: Medications were reviewed in detail Lab and Diagnostics Result Diagram: 03/06/1663903/06/16639 Microbiology cultures pending X-Rays, CTs and MRIs Patient Name: ANGELA ARGUELLES MR#: [id number] Location: [facility] [place] Ordering Phys: KYLAH MAY DO Date of Service: 03/03/162108 PROCEDURE: X-RAY LEFT FOOT, TWO VIEWS ([id number]) INDICATIONS: Cellulitis left foot TECHNIQUE: 2 views of the foot were acquired. COMPARISON: None. FINDINGS: Bones: No fractures or dislocations. No suspicious bony lesions. Soft tissues: No tibiotalar joint effusion. Achilles tendon appears normal. No soft tissue swelling. IMPRESSION: No acute radiographic findings. No findings to suggest osteomyelitis. Please note, plain film is less sensitive in the acute phases of osteomyelitis. If there is high clinical suspicion for osteomyelitis, contrast MRI of the foot is recommended. Dictated by: Catherine Wells M.D. on 03/03/2016 at 22:02 Approved by: Catherine Wells M.D. on 03/03/2016 at 22:02 Assessment & Plan 45yo female with a history of MRSA infection and uncontrolled diabetes mellitus admitted with diabetic foot infection / cellulitis acute, active #Diabetic foot infection / Cellulitis, acute, present on admission, moderate infection not meeting sepsis / SIRS criteria, h/o medical non-compliance. MRI showed fifth metatarsal OM, heel abscess. -pt with strong history of MRSA infections, seen in urgent care and given 1g ceftriaxone, clindamycin given in ED, clinically responding, continue for now, appreciate ID recs -Although reported both culture positive for gram-negative rods, since pt is clinical improving will continue abx coverage with ceftriaxone and vancomycin ( pharm to dose) -appreciate podiatry consult for tissue culture, surgical intervention. #Uncontrolled diabetes mellitus, chronic, remained hypoglycemic fasting glc 247 today, improved but not in target. - Home dosing reported to be 50 units glargine twice daily; decreased to 40 units, increase back to 50unit, increase to 55unit today. - pt seems not following dietary instruction, [id number] - ordered diabetic education, teaching. -Had lengthy discussion about importance of sugar control, medication #drug abuse, POA, amphetamine+ on UTOX although pt denied. -appreciate SW input, pt is poor candidate for IV abx via PICC chronic, stable #History of MRSA, ongoing, screen negative. #Tobacco dependence, chronic, ongoing, continue 21 mg nicotine patch available as needed - Discussed tobacco cessation, patient not considering quitting #Anxiety/depression, chronic, Continue home dosing of Adderall 30 mg 4 times daily, paliperidone 9 mg daily, lorazepam 1 mg 4 times daily as needed, aripiprazole 15 mg daily (decreased recently) - Holding Ambien 10 mg nightly at this time dispo: living in her car, prolonged course based on surgical needs, likely needs daily infusion [place] [facility] given drug abuse, appreciate ID input. DVT prophylaxis switch to LMWH qd Full code Diet - diabetic GI Prophylaxis: Not indicated VTE Prophylaxis: Sub-Q Heparin (Unfractionated) Resuscitation Status: CPR: Attempt Resuscitation Time spent 35min Rinku Miranda MD Mar 06, 2016 13:01
[2016-03-06] MEDS ORDERED: 0.9% Sodium Chloride 100 ML ONE (15:13)
[2016-03-06] MEDS: Ertapenem Inj 1,000 MG in 0.9% Sodium Chloride 50 ML IV SCH (15:25)
[2016-03-06 16:26] VITALS: BP 111/75; PULSE 91; RESP 14; O2SAT 95
[2016-03-06] MEDS: Amphetamines (Mixed) 10 mg Tablet PO SCH (17:45)
--- NOTE | 2016-03-06 18:27 | PCM.CHPPOD ---
Subjective Date of service Mar 06, 2016 History of Present Illness Patient admitted with cellulitis and pain in left foot. Previous history of 5th hammertoe repair with absorbable vinny remaining in toe. Reason for Consultation Abscess on MRI, left foot Allergy Allergies: Coded Allergies: sitagliptin (Verified Allergy, Severe, hallucinations, 05/09/15) oxycodone (Verified Adverse Reaction, Intermediate, n/v, 05/09/15) Medications Amphet Asp/Amphet/D-Amphet (Adderall) 30 Mg Tablet 30 MG PO QID Aripiprazole (Abilify) 30 Mg Tablet 15 MG PO DAILY Glipizide ER (Glipizide ER) 5 Mg Tab.er.24 5 MG PO BID Hydrocodone-Acetaminophen 5-325 mg (Hydrocodone-Acetaminophen 5-325 mg) 1 Each Tablet 1 EACH PO Q6 PRN PRN For Pain Insulin Glargine (Lantus U100 Insulin Vial) 100 Unit/Ml Vial 60 UNIT SUBQ BID Insulin Regular, Human (HUMulin-R U100 Insulin Vial) 100 Unit/1 Ml Vial 8 UNIT SUBQ TID-INSULIN Lorazepam (Lorazepam) 1 Mg Tablet 1 MG PO QID PRN PRN For Anxiety Metformin (Glucophage) 1,000 Mg Tablet 1,000 MG PO BIDWM Paliperidone ER (Invega) 9 Mg Tablet.er 9 MG PO DAILY Sertraline HCl (Sertraline) 100 Mg Tablet 150 MG PO HS Sulfamethoxazole/Trimeth 800-160 mg (Bactrim DS) 1 Each Tablet 2 TABLET PO BID Zolpidem (Ambien) 5 Mg Tab 10 MG PO HS PRN PRN For Insomnia Past Medical History Surgeries: Yes (nose surgeries) Medical History: (1) Uncontrolled diabetes mellitus (2) Cellulitis (3) Dental abscess (4) Facial cellulitis Surgical History: Social History Hx Alcohol Use: No Hx Substance Use: No Smoking Status: Current Every Day Smoker Podiatry Consult Exam Vital Signs Vital Sign - Last Date Time Temp Pulse Resp B/P Pulse Ox O2 Delivery O2 Flow Rate FiO2 03/06/16 16:26 36.3 91 14 111/75 95 Room Air Intake and Output 03/05/16 03/05/16 03/06/16 Cumulative From/Thru 15:00 23:00 07:00 03/03/16 20:17 - 03/06/16 05:47 Intake Total 1600 ml 482 ml 1450 ml 6116 ml Output Total 1400 ml 4350 ml Balance 200 ml 482 ml 1450 ml 1766 ml Intake Oral 1600 ml 1450 ml 4227 ml IV Total 482 ml 1889 ml Output Urine Total 1400 ml 4350 ml # Voids 4 4 Result Diagram: 03/06/16 0640 03/06/16 0640 Lab Test 03/03/16 21:36 03/03/16 22:10 03/06/16 00:13 03/06/16 06:40 Erythrocyte Sedimentation Rate 8mm/hr (0-32) Hemoglobin A1c 13.3% (4.8-5.6) Lactic Acid Level 1.7mmol/L (0.4-2.0) C-Reactive Protein 1.5mg/dL (0.0-0.5) Urine HCG, Qualitative Negative (Negative) Urine Opiates Screen Negative Urine Methadone Screen Negative Urine Barbiturates Screen Negative Urine Amphetamines Screen Positive Urine Benzodiazepines Screen Negative Urine Cocaine Metabolite Screen Negative Urine Cannabinoids Screen Negative Vancomycin Level Trough 9.0mcg/mL White Blood Count 7.9th/mm3 (3.8-10.1) Red Blood Count 4.66mil/mm3 (3.90-5.20) Hemoglobin 14.0g/dL (12.0-15.6) Hematocrit 41.1% (35.0-46.0) Mean Corpuscular Volume 88.2fL (81-100) Mean Corpuscular Hemoglobin 30.0pg (27.0-35.0) Mean Corpuscular Hemoglobin Concent 34.1% (32.0-37.0) Red Cell Distribution Width 12.4% (12.3-15.4) Platelet Count 166bil/L (150-400) Neutrophils (%) (Auto) 60.7% (40-74) Lymphocytes (%) (Auto) 27.1% (14-46) Monocytes (%) (Auto) 8.1% (4-12) Eosinophils (%) (Auto) 3.4% (0-5) Basophils (%) (Auto) 0.4% (0-3) Sodium Level 134mEq/L (134-144) Potassium Level 4.5mEq/L (3.5-5.2) Chloride Level 96mEq/L (97-108) Carbon Dioxide Level 27mmol/L (18-29) Blood Urea Nitrogen 14mg/dL (6-24) Creatinine 0.40mg/dL (0.57-1.00) Estimat Glomerular Filtration Rate 246mL/min (>59) Glucose Level 247mg/dL (60-99) Calcium Level 8.6mg/dL (8.5-10.1) Phosphorus Level 3.6mg/dL (2.5-4.9) Magnesium Level 1.9mg/dL (1.6-2.6) Total Bilirubin 0.2mg/dL (0.0-1.2) Aspartate Amino Transf (AST/SGOT) 11U/L (0-50) Alanine Aminotransferase (ALT/SGPT) 12U/L (0-32) Alkaline Phosphatase 105U/L (25-150) Total Protein 6.0g/dL (6.4-8.4) Albumin 3.7g/dL (3.4-5.0) Test 03/06/16 08:30 Hold Urine Received (Received) Exam Lower Extremities: Left: Edema localized (forefootm lateral and dorsal, heel) Extremity warm (erythema forefootm lateral and dorsal, heel) Lower Extremity Pulses: Palpable: Left Dorsalis Pedis Left Posterior Tibal Right Dorsalis Pedis Right Posterior Tibal Podiatry WOUND : Wound Location/Description Well demarcated left 5th metatarsal head abscess, visible on MRI, corresponds to fissured skin. Well demarcated posterior/plantar heel fissure with underlying abscess, visible on MRI. No necrosis. No open lesions on right foot. Many small fissures in skin bilaterally. Assessment & Plan Problems: (1) Abscess of foot excluding toes Plan: Patient seen earlier in the day, elected bedside I&D with prep and local anesthetic. Foot anesthetized with Lidocaine 1% plain in local areas of abscess formation. Chloraprep applied. abscesses incised under sterile technique, purulent drainage expressed from each, larger area of heel abscess swabbed for culture and sensitivities, iodoform packing inserted, saline-moistened gauze and Kerlix dressing applied. I will change it tomorrow. Nursing to reinforce as needed for strikethrough overnight. Status: Acute ICD Code: L02.619 (2) Cellulitis Qualifiers: Site of cellulitis: extremity Site of cellulitis of extremity: lower extremity Laterality: left Qualified Code: L03.116 - Cellulitis of left lower limb Plan: If erythema resolves within 24-48 hours, patient can be discharged on PO antibiotics, depending on culture results. Close follow up next week with Dr. Najera in [facility] in my absence. Status: Acute ICD Code: L03.90 VTE Prophylaxis: Sub-Q Heparin (Unfractionated) Lashon Lambert DPM Mar 06, 2016 18:26
--- NOTE | 2016-03-06 18:43 | NUR ---
Wound care Pt seen by Dr. Christie at 1800. Left foot wounds x2 drained and packed/dressed. Pt stable in bed following procedure. culture sent to [facility]. Dr. christie to follow up tomorrow for further wound care.
--- NOTE | 2016-03-06 18:53 | CONS ---
[address] [address] CONSULTATION REPORT PATIENT: ANGELA ARGUELLES : 1970 MR#: [id number] ADMIT: 03/04/2016 JOB ID: [id number] DATE OF SERVICE: 03/06/[address] Miranda for this timely consult. REASON FOR CONSULTATION: Complex left diabetic foot infection. HISTORY OF PRESENT ILLNESS: The patient is a 45-year-old woman who is well known to me from prior admissions for soft tissue and diabetic foot infections. I most recently saw the patient back in May 2015 when she had a severe right-sided facial cellulitis. She recovered from that, but in the intervening months has had a number of adverse life events occur. She is currently estranged from her and is living in an immobile car parked in his driveway. This has obviously been a major negative for her. She is admitted this time with a 5-day history of severe pain involving the left lateral forefoot as well as the left heel. Prior to admission at least, the patient had no fevers or chills, by her report. She has had some headaches and generally not felt well, but the main problem has been confined to the foot. There has been no overt respiratory or GI symptoms. She notes that she has had a prosthetic implant or joint in the left 5th toe which was done some years ago and may explain some of the radiographic findings we see now. PAST MEDICAL HISTORY: 1. Very poorly controlled diabetes mellitus with recent hemoglobin A1c 13.3. 2. 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 3. History of facial cellulitis. 4. History of mastitis. 5. Bipolar disorder. 6. ADHD for which she reportedly takes amphetamines. 7. Ongoing cigarette smoking. SOCIAL HISTORY: The patient is currently estranged from her and living in a car. She has been disabled for many years by virtue of her multiple medical problems. She smokes cigarettes and denies use of alcohol or illicit drugs. Her urine tox screen is positive for amphetamines which she states are the therapeutic amphetamines she takes for ADHD. FAMILY HISTORY: Positive for tuberculosis in the patient's mother. We checked last time she was admitted here and a QuantiFERON Gold was negative. REVIEW OF SYSTEMS: The patient says she has some headache. She denies acute visual change, sores in the mouth, sore throat, trouble swallowing, cough, shortness of breath or chest pain. No nausea, vomiting, diarrhea or dysuria. No significant pain in her joints except as confined to her left foot. No new neurologic complaints. PHYSICAL EXAMINATION: Reveals a thin woman who appears somewhat older than her stated age of 45. She is afebrile. Temp 36.6. She has been afebrile since her admission yesterday. Pulse 94, respiratory rate 20, blood pressure 117/80, she is saturating well on room air. Examination of the mental status reveals she is awake, alert and able to give a history. Her head without evidence of trauma. Eyes without conjunctivitis. Oral cavity: No thrush or hairy leukoplakia. Neck without adenopathy and is basically normal. Lungs: Reasonably clear to auscultation. Cardiac: Tones regular rate and rhythm without murmur. Abdomen soft and nontender without organomegaly. She does not have a Goode. She has no inguinal lymph nodes or femoral lymph nodes. Joints including the knees, hips and elbows appear benign, but the patient does have trouble raising her right arm in full extension over her head and she reports this is due to some trauma she suffered a few months ago. She also notes that when she pulls forward her right scapula clearly comes away from her back and this has been going on about the same length of time as she has had the shoulder pain. The examination of the left foot is remarkable for cellulitis which involves the left lateral forefoot. This area is red, warm and tender. The patient's left heel is boggy and tender to palpation without overt drainage. Cellulitis present on the left forefoot extends up the center of her dorsal foot up to about the level of the ankle. The right foot is uninvolved with this process. LABORATORIES: Include a white blood count consistently normal, now 7900, totally normal diff, creatinine is 0.4. LFTs are normal. Procalcitonin not done this admission. A urine test negative. Urine tox positive for amphetamine, negative for everything else. Serologic studies include negative hep C and HIV and those date back to April 2015. As mentioned, a QuantiFERON Gold was negative then. We have just ordered a streptozyme assay and it is pending. Micro studies include negative blood cultures from this admission as well as a negative MRSA screen. Back when she had the facial abscess in April 2015, the culture grew MRSA. IMAGING: So far includes a foot MRI that shows soft tissue edema along the lateral left forefoot without an abscess. There is some suggestion of potential osteo in the 3rd, 4th and 5th toes on the left though the radiologists were not definitive and suggested perhaps a bone scan would be useful. In addition, they saw nonmetallic object within the 5th toe which could represent the implant she says she has received previously. Also noted is a posterior heel abscess without evidence of calcaneal osteo. IMPRESSION: This is a complex case of a woman with extraordinarily poorly controlled diabetes and hemoglobin A1c over 13 who currently is living in a car. She is admitted with another soft tissue infection, this time involving the left lateral forefoot as well as the left heel. Given that this represents an abscess, there is concern for not only the usual staph and strep but perhaps anaerobes, enterococci and other organisms. We have no evidence for MRSA at this time as her nasal MRSA smear was negative, and I think it would be reasonable to avoid the use of vancomycin as we attempt to sort this out. RECOMMENDATIONS: 1. I would discontinue the current antibiotics which currently include vancomycin and ceftriaxone. 2. Will switch the patient instead to ertapenem, just for simplicity's sake and a dose of 1 g q. 24 hours. 3. I think we should consult Podiatry as soon as possible for debridement and obtaining appropriate cultures. 4. The distinction as to whether the patient has osteo were not as critical in terms of her disposition and management. A bone scan is not especially sensitive or specific, but was recommended by the radiologist to add to the MRI scan so will go ahead and order a bone scan of the left foot. 5. Will start the patient on Zosyn as her sole antibiotic at this time while we await additional data.
[2016-03-06 20:14] VITALS: BP 121/76; PULSE 100; RESP 15; O2SAT 97
[2016-03-07] MEDS ORDERED: Vancomycin Serum Trough XX ONE
[2016-03-07 05:00] VITALS: BP 92/62; PULSE 93; RESP 16; O2SAT 97
[2016-03-07 06:11] LABS: BASOPHILS % (AUTO) 0.3 % (0-3); EOSINOPHILS % (AUTO) 2.7 % (0-5); MONOCYTES % (AUTO) 8.5 % (4-12); Mean Corpuscular Hemoglobin 30.4 pg (27.0-35.0); Mean Corpuscular Volume 88.5 fL (81-100); NEUTROPHILS % (AUTO) 64.6 % (40-74); Platelet Count 176 bil/L (150-400)
[2016-03-07] MEDS: Amphetamines (Mixed) 10 mg Tablet PO SCH ×4 (06:19→16:36)
[2016-03-07] MEDS: HYDROcodone-APAP 5-325 mg Tablet PO PRN ×3 (06:20→20:02)
--- NOTE | 2016-03-07 06:34 | NUR ---
Pain Pt stated pain was up to 8/10 without pain medication. Pain would go down to a 6/10 with pain medication.
[2016-03-07 06:35] LABS: Magnesium 1.9 mg/dL (1.6-2.6); Phosphorus 4.1 mg/dL (2.5-4.9)
[2016-03-07 07:38] VITALS: BP 106/74; PULSE 72; RESP 18; O2SAT 94
[2016-03-07] MEDS: Insulin LISPRO 300 Unit/3 mL Inj SUBQ SCH ×4 (08:00→20:46)
[2016-03-07] MEDS: PALIPERIDONE 9 MG PO SCH (08:30)
[2016-03-07] MEDS: Insulin GLARgine 100 Unit/mL Syringe SUBQ SCH ×2 (08:35→20:46)
--- NOTE | 2016-03-07 08:44 | NUR ---
Invega/Home Medication Invega scheduled for administration this morning, but this is a medication not stocked by our pharmacy, patient needs to have own medication brought from home in order to be given. Patient aware that the medication needs to be brought in from home.
--- NOTE | 2016-03-07 09:11 | NUR ---
Nuclear Medicine Received call from nuclear med, stated patient will be coming down for bone scan, stated they will come get her to inject first, then will return to floor for 3 hours prior to actual scan and during this 3 hour span she will need to drink a lot of fluids and urinate frequently during this time.
--- NOTE | 2016-03-07 10:41 | NUR ---
Morning Rounds Staffed patient's case with Dr. Miranda, case management and social work. No plan for discharge at this time, bone scan will be done today.
--- NOTE | 2016-03-07 11:09 | PCM.PNMED ---
Subjective Date of Service Mar 07, 2016 Subjective Patient remained stable overnight aspiration of abscess done by the podiatry at the bedside Infectious disease service change the antibiotics yesterday Exam Vital Signs Vital Sign - Last Date Time Temp Pulse Resp B/P Pulse Ox O2 Delivery O2 Flow Rate FiO2 03/07/16 07:38 36.5 72 18 106/74 94 Room Air Intake and Output 03/06/16 03/06/16 03/07/16 Cumulative From/Thru 15:00 23:00 07:00 03/03/16 20:17 - 03/07/16 06:23 Intake Total 675 ml 70 ml 911 ml 7772 ml Output Total 600 ml 4950 ml Balance 75 ml 70 ml 911 ml 2822 ml Intake Oral 675 ml 911 ml 5813 ml IV Total 70 ml 1959 ml Output Urine Total 600 ml 4950 ml # Voids 3 7 # Bowel Movements 0 0 Exam NAD, comfortably laying down on the bed no JVD, MMM, no LAD RRR, nl s1, s2 no mrg CTAB, no w,c S,ND,NT,normoactive BS+ Sterilely dressed left foot IVs and Medications Medications Reviewed: Medications were reviewed in detail Lab and Diagnostics Result Diagram: 03/07/1653403/07/16534 Microbiology cultures pending X-Rays, CTs and MRIs Patient Name: ANGELA ARGUELLES MR#: [id number] [place] [facility] [place]ing Phys: KYLAH MAY DO Date of Service: 03/03/162108 PROCEDURE: X-RAY LEFT FOOT, TWO VIEWS ([id number]) INDICATIONS: Cellulitis left foot TECHNIQUE: 2 views of the foot were acquired. COMPARISON: None. FINDINGS: Bones: No fractures or dislocations. No suspicious bony lesions. Soft tissues: No tibiotalar joint effusion. Achilles tendon appears normal. No soft tissue swelling. IMPRESSION: No acute radiographic findings. No findings to suggest osteomyelitis. Please note, plain film is less sensitive in the acute phases of osteomyelitis. If there is high clinical suspicion for osteomyelitis, contrast MRI of the foot is recommended. Dictated by: Catherine Wells M.D. on 03/03/2016 at 22:02 Approved by: Catherine Wells M.D. on 03/03/2016 at 22:02 Assessment & Plan 45yo female with a history of MRSA infection and uncontrolled diabetes mellitus admitted with diabetic foot infection / cellulitis acute, active #Diabetic foot infection / Cellulitis, acute, present on admission, moderate infection not meeting sepsis / SIRS criteria, h/o medical non-compliance. MRI showed fifth metatarsal OM, heel abscess. s/p calcaneal abscess drainage per Podiatry, culture pending. -pt with strong history of MRSA infections, seen in urgent care, started 1g ceftriaxone, clindamycin given in ED, clinically responding, switched to Ertapenem per ID , await final culture result -pt had reported culture positive for gram-negative rods(from urgent care), -follow up with Wound care outpt per podiatry, -appreciate ID for abx course upon d/c #Uncontrolled diabetes mellitus, chronic, remained hypoglycemic fasting [id number] today, in target. - Home dosing reported to be 50 units glargine twice daily; decreased to 40 units, increase back to 50unit, increase to 55unit 03/07 - pt seems not following dietary instruction, a1c14 - ordered diabetic education, teaching. -Had lengthy discussion about importance of sugar control, medication #drug abuse, POA, amphetamine+ on UTOX although pt denied. -appreciate SW input, pt is poor candidate for IV abx via PICC chronic, stable #History of MRSA, ongoing, screen negative. #Tobacco dependence, chronic, ongoing, continue 21 mg nicotine patch available as needed - Discussed tobacco cessation, patient not considering quitting #Anxiety/depression, chronic, Continue home dosing of Adderall 30 mg 4 times daily, paliperidone 9 mg daily, lorazepam 1 mg 4 times daily as needed, aripiprazole 15 mg daily (decreased recently) - Holding Ambien 10 mg nightly at this time dispo: pending, living in her car, likely needs daily infusion at [facility] [place] given drug abuse, appreciate ID input. DVT prophylaxis switch to LMWH qd Full code Diet - diabetic GI Prophylaxis: Not indicated VTE Prophylaxis: Sub-Q Heparin (Unfractionated) Resuscitation Status: CPR: Attempt Resuscitation Time spent 35min Rinku Miranda MD Mar 07, 2016 11:09
--- NOTE | 2016-03-07 11:22 | PROG NOTE ---
[address] [address] PROGRESS NOTE PATIENT: ANGELA ARGUELLES : 1970 MR#: [id number] ADMIT: 03/04/2016 JOB ID: [id number] DATE: 03/07/2016 INFECTIOUS DISEASE FOLLOW UP NOTE: REASON FOR FOLLOW UP: Left heel and left forefoot infections in a very poorly uncontrolled diabetic. INTERVAL HISTORY: Overnight the patient underwent debridement of the left forefoot as well as the left heel by Dr. Lambert of Podiatry. Appropriate cultures were sent. The patient has continued on ertapenem. INTERVAL HISTORY: PE. The patient reports that she has no fevers or chills today. No new pulmonary or GI symptoms noted. She has some pain in the left foot as one would expect postoperatively. PHYSICAL EXAMINATION: Reveals an afebrile woman lying in bed with heavy covers. Temperature 36.5, pulse 72, respiratory rate 18, blood pressure 107/74, saturating well on room air. Mental status clear. Lungs essentially clear. Abdomen benign. The left foot is now wrapped in a heavy postop dressing which we did not remove. LABORATORIES: Include a white count stable at 8900, creatinine stable 0.33. LFTs are normal. Micro studies include a culture of the foot from yesterday which is already growing group B strep. Blood cultures are negative and a MRSA screen is negative. Recall that the imaging of the foot was equivocal when it comes to osteomyelitis, and for that reason, a bone scan has been ordered. IMPRESSION: This patient has a complicated diabetic foot infection in the setting of uncontrolled diabetes with a hemoglobin A1c of 13. Whether or not she has osteo of the toes involving the left foot remains unclear and the radiologists have recommended a bone scan to help sort this out. which has now been ordered. RECOMMENDATIONS: 1. Will continue with the ertapenem. 2. We await the final report on the bone scan. 3. Final discharge plans will be made following the result of the bone scan.
[2016-03-07 12:15] VITALS: BP 104/70; PULSE 96; RESP 18; O2SAT 92
[2016-03-07] MEDS: Ertapenem Inj 1,000 MG in 0.9% Sodium Chloride 50 ML IV SCH (13:42)
--- NOTE | 2016-03-07 13:50 | NUR ---
Transfer to [facility] Patient transported down to [facility] for bone scan via wheelchair.
--- NOTE | 2016-03-07 14:33 | NUR ---
Return to Floor from [facility] Patient back in room, bone scan completed.
[2016-03-07 16:25] VITALS: BP 104/76; PULSE 92; O2SAT 90
[2016-03-07 20:36] VITALS: BP 109/74; PULSE 93; RESP 17; O2SAT 98
[2016-03-08] MEDS: HYDROcodone-APAP 5-325 mg Tablet PO PRN ×4 (01:55→22:08)
[2016-03-08] MEDS: Amphetamines (Mixed) 10 mg Tablet PO SCH ×4 (05:49→16:12)
[2016-03-08 05:53] VITALS: BP 95/61; PULSE 90; RESP 16; O2SAT 96
--- NOTE | 2016-03-08 06:08 | NUR ---
Pain Pt continues to have pain 08/21 and requests medication before it can be given. Pt is also concerned about her shoulder pain not being addressed during her stay in the hospital
[2016-03-08 06:26] LABS: BASOPHILS % (AUTO) 0.6 % (0-3); EOSINOPHILS % (AUTO) 2.4 % (0-5); MONOCYTES % (AUTO) 7.8 % (4-12); Mean Corpuscular Hemoglobin 30.1 pg (27.0-35.0); Mean Corpuscular Volume 89.4 fL (81-100); NEUTROPHILS % (AUTO) 51.2 % (40-74); Platelet Count 194 bil/L (150-400)
[2016-03-08 06:51] LABS: Magnesium 1.9 mg/dL (1.6-2.6); Phosphorus 4.7 mg/dL (2.5-4.9)
[2016-03-08] MEDS: PALIPERIDONE 9 MG PO SCH (08:30)
[2016-03-08] MEDS: Insulin GLARgine 100 Unit/mL Syringe SUBQ SCH ×2 (08:54→21:38)
[2016-03-08] MEDS: Insulin LISPRO 300 Unit/3 mL Inj SUBQ SCH ×4 (08:54→21:38)
--- NOTE | 2016-03-08 09:46 | DRSVH ---
PROCEDURE: NM BONE SCAN THREE PHASE RADIOPHARMACEUTICAL: 26.6 mCi Tc-99m MDP IV. INDICATIONS: LEFT FOOT OSTEOMYLITIS. TECHNIQUE: Multiple bone scintigrams were obtained after intravenous injection of Tc-99m MDP, including flow, bl ood pool, and delayed images centered to the region of interest. COMPARISON: [facility], MR, MR FOREFOOT LT W&WO CON, 03/05/2016, 13:39. [facility], CR, XR FOOT 2VW LT, 03/03/2016, 21:29. FINDINGS: The flow and blood pool images demonstrate increased activity in the lateral aspect of the distal left foot. On delayed images, there is focal uptake at the base of the left fifth toe. The sci ntigraphic findings are compatible with osteomyelitis at the base of the fifth toe. IMPRESSION: Suspect osteomyelitis at the base of the left fifth toe. Dictated by: Nazia Duncan M.D. on 03/08/2016 at 9:18 Approved by: Nazia Duncan M.D. on 03/08/2016 at 9:45
--- NOTE | 2016-03-08 10:10 | PCM.PNMED ---
Subjective Date of Service Mar 08, 2016 Subjective Patient complaint of shoulder pain Patient stated that she has a long history shoulder pain from past, had MRI which showed pinched nerve. At C5 and C6 And several steroid injection in the past About 2 weeks ago, after she moved some heavy stuff, she acutely developed shoulder pain, noticed that her shoulder blade was popping up, unable to lift urged right arm above Pain has been going on and off, mainly with movement Otherwise complaining of mild leg pain on the left foot Exam Vital Signs Vital Sign - Last Date Time Temp Pulse Resp B/P Pulse Ox O2 Delivery O2 Flow Rate FiO2 03/08/16 05:53 36.4 90 16 95/61 96 Room Air Intake and Output 03/07/16 03/07/16 03/08/16 Cumulative From/Thru 15:00 23:00 07:00 03/03/16 20:17 - 03/08/16 06:09 Intake Total 780 ml 951 ml 9503 ml Output Total 4950 ml Balance 780 ml 951 ml 4553 ml Intake Oral 720 ml 951 ml 7484 ml IV Total 60 ml 2019 ml Output Urine Total 4950 ml # Voids 4 3 14 # Bowel Movements 0 Exam NAD, comfortably laying down on the bed no JVD, MMM, no LAD RRR, nl s1, s2 no mrg CTAB, no w,c S,ND,NT,normoactive BS+ Sterilely dressed left foot Right shoulder joint - nontender, no erythema, effusion. LROM up to 90degree IVs and Medications Medications Reviewed: Medications were reviewed in detail Lab and Diagnostics Result Diagram: 03/08/16 0600 03/08/16 0600 Microbiology cultures pending X-Rays, CTs and MRIs Patient Name: ANGELA ARGUELLES MR#: [id number] [place] [facility] [place] Phys: KYLAH MAY DO Date of Service: 03/03/162108 PROCEDURE: X-RAY LEFT FOOT, TWO VIEWS ([id number]) INDICATIONS: Cellulitis left foot TECHNIQUE: 2 views of the foot were acquired. COMPARISON: None. FINDINGS: Bones: No fractures or dislocations. No suspicious bony lesions. Soft tissues: No tibiotalar joint effusion. Achilles tendon appears normal. No soft tissue swelling. IMPRESSION: No acute radiographic findings. No findings to suggest osteomyelitis. Please note, plain film is less sensitive in the acute phases of osteomyelitis. If there is high clinical suspicion for osteomyelitis, contrast MRI of the foot is recommended. Dictated by: Catherine Wells M.D. on 03/03/2016 at 22:02 Approved by: Catherine Wells M.D. on 03/03/2016 at 22:02 Assessment & Plan 45yo female with a history of MRSA infection and uncontrolled diabetes mellitus admitted with diabetic foot infection / cellulitis acute, active #Diabetic foot infection / Cellulitis, acute, present on admission, moderate infection not meeting sepsis / SIRS criteria, h/o medical non-compliance. MRI showed fifth metatarsal OM, heel abscess. s/p calcaneal abscess drainage per Podiatry, culture pending. -pt with strong history of MRSA infections, seen in urgent care, started 1g ceftriaxone, clindamycin given in ED, clinically responding, switched to Ertapenem per ID , await final culture sensitivity, so far group B streptococcus -pt had reported culture positive for gram-negative rods(from urgent care), no further report since. -follow up with Wound care outpt per podiatry, -appreciate ID for abx course upon d/c #Uncontrolled diabetes mellitus, chronic, remained hypoglycemic fasting [id number] today, in target. - Home dosing reported to be 50 units glargine twice daily; decreased to 40 units, increase back to 50unit, increase to 55unit 03/07 - pt seems not following dietary instruction, a1c14 - ordered diabetic education, teaching. -Had lengthy discussion about importance of sugar control, medication #drug abuse, POA, amphetamine+ on UTOX although pt denied. -appreciate SW input, pt is poor candidate for IV abx via PICC #Cervical radiculopathy, recent trauma on shoulder, POA, exam consistent to dislocation of the shoulder joint -Start with shoulder x-rays, will consider ortho consult for reduction chronic, stable #History of MRSA, ongoing, screen negative. #Tobacco dependence, chronic, ongoing, continue 21 mg nicotine patch available as needed - Discussed tobacco cessation, patient not considering quitting #Anxiety/depression, chronic, Continue home dosing of Adderall 30 mg 4 times daily, paliperidone 9 mg daily, lorazepam 1 mg 4 times daily as needed, aripiprazole 15 mg daily (decreased recently) - Holding Ambien 10 mg nightly at this time dispo: pending, living in her car, likely needs daily infusion at [facility] [place] given drug abuse, appreciate ID input. DVT prophylaxis switch to LMWH qd Full code Diet - diabetic GI Prophylaxis: Not indicated VTE Prophylaxis: Sub-Q Heparin (Unfractionated) Resuscitation Status: CPR: Attempt Resuscitation Time spent 35 minutes Rinku Miranda MD Mar 08, 2016 10:10
--- NOTE | 2016-03-08 10:40 | NUR ---
Morning Rounds Staffed patient's case with Dr. Miranda, case management and social work. Dr. Miranda stated patient will possibly get a PICC line for ongoing treatment of infection. Social Work stated patient will likely discharge back to her car, where she was living prior to hospitalization. No plan for discharge at this time. I informed Dr. Miranda that patient is requesting additional pain medication to control pain in foot and pain in shoulder, he stated he would like at patient's chart and put in an order.
--- NOTE | 2016-03-08 11:16 | PROG NOTE ---
[address] [address] PROGRESS NOTE PATIENT: ANGELA ARGUELLES : 1970 MR#: [id number] ADMIT: 03/04/2016 JOB ID: [id number] DATE: 03/08/2016 REASON FOR FOLLOWUP: Probable osteomyelitis, left foot. INTERVAL HISTORY: The patient reports that she continues to have pain both in the left heel, as well as the left lateral forefoot around the base of the 5th toe. She reports a longstanding ulcer over the left lateral forefoot, but she cannot say exactly how long it has been there. She had night sweats last night but no fevers or chills. No pulmonary or GI symptoms. PHYSICAL EXAMINATION: Reveals an afebrile woman. Temperature 36.4, pulse 90, respiratory rate 16, blood pressure 95/61. She is saturating well on room air. Examination of the mental status reveals it to be clear. Lungs clear. Abdomen benign. The left heel ulcer that was debrided is looking very good, and there is no significant inflammation or tenderness remaining. The left anterior forefoot, however, continues to have a small ulcer present just lateral to the base of the 5th toe, and this is quite tender with some surrounding erythema, though perhaps better than on admission. LABORATORIES: Include a white count stable at 7800. We have a sed rate of 8 that was done recently, a creatinine of 0.35, CRP 1.5 which is slightly increased in our labs according to our lab's reference range. Streptozyme 169. Cultures from the heel debridement that was done are growing group B strep, as well as Staph aureus, and we do not have susceptibilities on the Staph aureus. A MRSA screen was negative. The MRI scan of the foot is a bit confusing to interpret. It does show soft tissue edema along the lateral forefoot, and there is likely osteomyelitis at the head of the 5th metatarsal according to the radiologist. The radiologist had recommended actually that a bone scan be done, and that was performed yesterday. I talked at length to Radiology this morning, and they compared the MRI scan to the bone scan images. In conclusion, the [facility] physician felt that there was likely osteo at the base of the 5th toe. IMPRESSION: This is a difficult case of a woman who lives in a car with uncontrolled diabetes. She presents with swelling, erythema, and tenderness of the left lateral forefoot, as well as a heel ulcer. The heel ulcer has been debrided and is looking great, but she continues to have the significant pain at the base of the 5th toe. Both MRI scan and bone scan suggests probable osteomyelitis, though the radiologists are not prepared to commit on either study. I have discussed this case this morning with Dr. Lambert, and she will be coming to re-evaluate the patient. She wants us to keep in mind that there is a nonmetallic vinny in the 5th toe which was placed to correct hammertoe and may interfere with our imaging modalities. RECOMMENDATIONS: 1. Will continue with ertapenem while we await final cultures. 2. We await Dr. Lambert's input to see if we are treating here for osteo or soft tissue in this complicated diabetic foot infection.
--- NOTE | 2016-03-08 11:25 | DRSVH ---
PROCEDURE: X-RAY RIGHT SHOULDER, MINIMUM TWO VIEWS ([id number]) INDICATIONS: shoulder dislocation TECHNIQUE: 3 views of the shoulder were acquired. COMPARISON: None. FINDINGS: Bones: No fractures or dislocations. No suspicious bony lesions. Visualized ribs appear intact. M ild joint narrowing with periarticular osteophyte formation of the acromioclavicular and glenohumeral joints. Soft tissues: No calcific tendinitis or rotator cuff. IMPRESSION: Osteoarthritic changes and calcific tendinitis. Dictated by: Bossman [place] Rishi Interpreted: Karan Al MD on 03/08/2016 at 11:24 Transcribed by: RADHA on 03/08/2016 at 11:25 Approved by: Karan Al M.D. on 03/09/2016 at 10:53
--- NOTE | 2016-03-08 11:48 | NUR ---
Pain Control Contacted Dr. Miranda with the following cook page: Patient continues to request additional pain medications for left foot and right shoulder. Current pain Rx is [place] 5 mg q 6 h. Please advise. Thank you. Sudha SANTOYO
[2016-03-08] MEDS: LORazepam 1 mg Tablet PO PRN ×2 (12:43→20:40)
[2016-03-08 12:47] VITALS: BP 111/78; PULSE 97; RESP 16; O2SAT 97
[2016-03-08] MEDS: Ertapenem Inj 1,000 MG in 0.9% Sodium Chloride 50 ML IV SCH (14:21)
--- NOTE | 2016-03-08 14:28 | NUR ---
Social Work: Continued d/c planning Data: Pt is on day 4 of hospitalization. EMR reviewed, pt discussed in rounds. MD states that pt's drug test came back positive for amphetamines, but pt has been taking Adderall. ASSISTANT PROFESSOR OF MATHEMATICS met with pt at bedside and gave her homelessness resources. Pt accepted them. ASSISTANT PROFESSOR OF MATHEMATICS asked what drugs pt has ever used and she states that she has never used drugs. ASSISTANT PROFESSOR OF MATHEMATICS asked if pt has any other questions and she stated that she wants a months worth of medications before leaving the hospital and that she is not sure how she will get her medications. ASSISTANT PROFESSOR OF MATHEMATICS suggested she talk with her doctor about what medications will be needed and then ASSISTANT PROFESSOR OF MATHEMATICS will speak with MD regarding what she will need and what her insurance will cover. No further questions by pt. ASSISTANT PROFESSOR OF MATHEMATICS asked if pt would prefer to do home IVABX or come in [place] [facility]. Pt states she would like to home IVABX. ASSISTANT PROFESSOR OF MATHEMATICS gave her infusion choice list and pt states that she has no preference as to which company. ASSISTANT PROFESSOR OF MATHEMATICS stated that she would look into if pt's insurance covers this and would let pt know. ASSISTANT PROFESSOR OF MATHEMATICS called UR specialist regarding if pt's insurance covers home infusion, no answer, ASSISTANT PROFESSOR OF MATHEMATICS left a message. ASSISTANT PROFESSOR OF MATHEMATICS referred to [employer], [employer] is the company this week. ASSISTANT PROFESSOR OF MATHEMATICS called [facility] and spoke with Marilu ([phone]), liaison, who states she will look over pt to see if this is covered by pt's insurance. ASSISTANT PROFESSOR OF MATHEMATICS awaiting phone call back regarding IVABX. ASSISTANT PROFESSOR OF MATHEMATICS will continue to follow. Assessment: Pt who is independent at baseline, homeless. Plan: Pt will d/c back to her car via POV with her ex when medically stable, likely with IVABX at d/c, [facility] is reviewing, access given. ASSISTANT PROFESSOR OF MATHEMATICS awaiting phone call back regarding IVABX. ASSISTANT PROFESSOR OF MATHEMATICS will continue to follow. MOISE Hernandez
--- NOTE | 2016-03-08 16:32 | NUR ---
Vaginal Itching Contacted Dr. Miranda with the following cook page: Patient reports she is having vaginal itching, stated she was half done with a yeast infection treatment prior to arrival, continues with symptoms. Please advise. Thank you.. Sudha SANTOYO
[2016-03-08 16:50] VITALS: BP 119/76; PULSE 106; RESP 16; O2SAT 93
[2016-03-08 21:12] VITALS: BP 99/58; PULSE 99; RESP 17; O2SAT 96
--- NOTE | 2016-03-08 21:58 | PCM.PNPOD ---
Subjective Date of Service: Mar 08, 2016 Visit Information: Reason for Visit Cellulitis 48 hours s/p Abscess I&D performed at 5th metatarsal head and heel, left foot. Date of Admission: Mar 04, 2016 at 00:34 Subjective: Patient complains of some pain in left foot with ambulation. Pain Management: PO Postop Activity: Ambulating Independently Objective Vital Sign - Last Date Time Temp Pulse Resp B/P Pulse Ox O2 Delivery O2 Flow Rate FiO2 03/08/16 21:12 36.7 99 17 99/58 96 Room Air Intake and Output 03/07/16 03/07/16 03/08/16 Cumulative From/Thru 15:00 23:00 07:00 03/03/16 20:17 - 03/08/16 06:09 Intake Total 780 ml 951 ml 9503 ml Output Total 4950 ml Balance 780 ml 951 ml 4553 ml Intake Oral 720 ml 951 ml 7484 ml IV Total 60 ml 2019 ml Output Urine Total 4950 ml # Voids 4 3 14 # Bowel Movements 0 Result Diagram: 03/08/16 0600 03/08/16 0600 Lab Test 03/03/16 21:36 03/03/16 22:10 03/06/16 00:13 03/06/16 06:40 Erythrocyte Sedimentation Rate 8mm/hr (0-32) Hemoglobin A1c 13.3% (4.8-5.6) Lactic Acid Level 1.7mmol/L (0.4-2.0) C-Reactive Protein 1.5mg/dL (0.0-0.5) Urine HCG, Qualitative Negative (Negative) Urine Opiates Screen Negative Urine Methadone Screen Negative Urine Barbiturates Screen Negative Urine Amphetamines Screen Positive Urine Benzodiazepines Screen Negative Urine Cocaine Metabolite Screen Negative Urine Cannabinoids Screen Negative Vancomycin Level Trough 9.0mcg/mL Streptozyme 169.3IU/mL (0.0-200.0) Test 03/06/16 08:30 03/08/16 06:00 Hold Urine Received (Received) White Blood Count 7.8th/mm3 (3.8-10.1) Red Blood Count 5.02mil/mm3 (3.90-5.20) Hemoglobin 15.1g/dL (12.0-15.6) Hematocrit 44.9% (35.0-46.0) Mean Corpuscular Volume 89.4fL (81-100) Mean Corpuscular Hemoglobin 30.1pg (27.0-35.0) Mean Corpuscular Hemoglobin Concent 33.6% (32.0-37.0) Red Cell Distribution Width 12.9% (12.3-15.4) Platelet Count 194bil/L (150-400) Neutrophils (%) (Auto) 51.2% (40-74) Lymphocytes (%) (Auto) 37.9% (14-46) Monocytes (%) (Auto) 7.8% (4-12) Eosinophils (%) (Auto) 2.4% (0-5) Basophils (%) (Auto) 0.6% (0-3) Hematology Comments Sodium Level 141mEq/L (134-144) Potassium Level 4.4mEq/L (3.5-5.2) Chloride Level 101mEq/L (97-108) Carbon Dioxide Level 27mmol/L (18-29) Blood Urea Nitrogen 11mg/dL (6-24) Creatinine 0.35mg/dL (0.57-1.00) Estimat Glomerular Filtration Rate 287mL/min (>59) Glucose Level 106mg/dL (60-99) Calcium Level 9.6mg/dL (8.5-10.1) Phosphorus Level 4.7mg/dL (2.5-4.9) Magnesium Level 1.9mg/dL (1.6-2.6) Total Bilirubin 0.2mg/dL (0.0-1.2) Aspartate Amino Transf (AST/SGOT) 14U/L (0-50) Alanine Aminotransferase (ALT/SGPT) 14U/L (0-32) Alkaline Phosphatase 91U/L (25-150) Total Protein 6.2g/dL (6.4-8.4) Albumin 3.8g/dL (3.4-5.0) Exam General: Alert, Oriented X3, Cooperative Lower Extremities: Left: Edema localized (forefoot lateral and dorsal, heel resolved) Extremity warm (erythema forefoot lateral and dorsal) Lower Extremity Pulses: Palpable: Left Dorsalis Pedis Left Posterior Tibal Right Dorsalis Pedis Right Posterior Tibal Postop Sensory Motor: Decreased Sensation Podiatry WOUND : Wound Location/Description Area of left heel abscess drying up, central fissure healing well,erythema resolved. Area of left lateral 5th met head is necrotic, still streaking erythema dorsolaterally and some purulence expressed Assessment & Plan Problems: (1) Abscess of foot excluding toes Plan: Left 5th met wound irrigated, wound gel and saline-moistened gauze and Kerlix dressing applied. I will change it tomorrow and debride further at bedside with local anesthesia. Nursing to reinforce as needed for strikethrough overnight. Status: Acute ICD Code: L02.619 (2) Cellulitis Qualifiers: Site of cellulitis: extremity Site of cellulitis of extremity: lower extremity Laterality: left Qualified Code: L03.116 - Cellulitis of left lower limb Plan: The bone scan was suspicious for osteomyelitis, but the patient has a poly absorbable pin that has not dissolved, which would result in increased tracer uptake in the 5th toe anyway. I will have a better idea clinically after debridement tomorrow. Status: Acute ICD Code: L03.90 VTE Prophylaxis: Sub-Q Heparin (Unfractionated) Lashon Lambert DPM Mar 08, 2016 21:58
[2016-03-09] MEDS: LORazepam 1 mg Tablet PO PRN ×3 (03:02→20:06)
[2016-03-09] MEDS: HYDROcodone-APAP 5-325 mg Tablet PO PRN ×4 (04:05→23:51)
[2016-03-09 04:06] VITALS: BP 98/63; PULSE 95; RESP 20; O2SAT 98
[2016-03-09] MEDS: Amphetamines (Mixed) 10 mg Tablet PO SCH ×4 (06:40→16:09)
[2016-03-09 06:53] LABS: BASOPHILS % (AUTO) 0.7 % (0-3); EOSINOPHILS % (AUTO) 4.1 % (0-5); MONOCYTES % (AUTO) 7.8 % (4-12); Mean Corpuscular Hemoglobin 29.7 pg (27.0-35.0); Mean Corpuscular Volume 90.3 fL (81-100); Platelet Count 206 bil/L (150-400)
[2016-03-09] MEDS ORDERED: MICONAZOLE VAGINAL ONE (07:15)
[2016-03-09 07:50] VITALS: BP 94/57; PULSE 90; RESP 18; O2SAT 97
--- NOTE | 2016-03-09 07:54 | NUR ---
Social Work: Continued d/c planning Data: [facility] spoke with Marilu with [facility] who states that pt needs access to electricity, running water, and a fridge in order to do home infusions. Plan: [facility] will follow up with pt regarding d/c plan and the need for a physial location to d/c to or to come to [facility] for IVABX. MOISE Hernandez
[2016-03-09] MEDS: PALIPERIDONE 9 MG PO SCH (08:30)
[2016-03-09] MEDS: MICONAZOLE 2% VAGINAL SCH (08:52)
[2016-03-09] MEDS: Insulin LISPRO 300 Unit/3 mL Inj SUBQ SCH ×4 (08:53→22:00)
[2016-03-09] MEDS: Insulin GLARgine 100 Unit/mL Syringe SUBQ SCH ×2 (08:54→22:09)
--- NOTE | 2016-03-09 10:30 | NUR ---
Morning Rounds Staffed patient's case with Dr. Miranda, social work, case management and utilization RN. Dr. Miranda stated patient will probably remain for another day or so, no current order/plan for discharge at this time. Social Work will continue to work on plan for the IV antibiotic therapy patient will need for the next 4-6 weeks, home vs outpatient vs inpatient, as patient is currently homeless. I informed Dr. Miranda the patient is questioning reason for her shoulder pain, as I was only able to relay some of the XR report information.
--- NOTE | 2016-03-09 11:26 | PCM.PNMED ---
Subjective Date of Service Mar 09, 2016 Subjective No overnight event Shoulder x-ray did not show dislocation or fracture Still complaining of pain with range of motion Complained all vaginal itching for which she used topical azole, which was helpful Podiatry is assessing patient's for OM, bonescan might not be diagnostic Exam Vital Signs Vital Sign - Last Date Time Temp Pulse Resp B/P Pulse Ox O2 Delivery O2 Flow Rate FiO2 03/09/16 07:50 36.6 90 18 94/57 97 Room Air Intake and Output 03/08/16 03/08/16 03/09/16 Cumulative From/Thru 15:00 23:00 07:00 03/03/16 20:17 - 03/09/16 06:21 Intake Total 1016 ml 1026 ml 09476 ml Output Total 4950 ml Balance 1016 ml 1026 ml 6595 ml Intake Oral 956 ml 1026 ml 9466 ml IV Total 60 ml 2079 ml Output Urine Total 4950 ml # Voids 4 3 21 # Bowel Movements 1 1 Exam NAD, comfortably laying down on the bed no JVD, MMM, no LAD RRR, nl s1, s2 no mrg CTAB, no w,c S,ND,NT,normoactive BS+ Sterilely dressed left foot Right shoulder joint - nontender, no erythema, effusion. LROM up to 90degree Lab and Diagnostics Result Diagram: 03/09/16 0507 03/09/16 0507 Microbiology cultures pending X-Rays, CTs and MRIs Patient Name: ANGELA ARGUELLES MR#: [id number] [place] [facility] [place] Phys: KYLAH MAY DO Date of Service: 03/03/162108 PROCEDURE: X-RAY LEFT FOOT, TWO VIEWS ([id number]) INDICATIONS: Cellulitis left foot TECHNIQUE: 2 views of the foot were acquired. COMPARISON: None. FINDINGS: Bones: No fractures or dislocations. No suspicious bony lesions. Soft tissues: No tibiotalar joint effusion. Achilles tendon appears normal. No soft tissue swelling. IMPRESSION: No acute radiographic findings. No findings to suggest osteomyelitis. Please note, plain film is less sensitive in the acute phases of osteomyelitis. If there is high clinical suspicion for osteomyelitis, contrast MRI of the foot is recommended. Dictated by: Catherine Wells M.D. on 03/03/2016 at 22:02 Approved by: Catherine Wells M.D. on 03/03/2016 at 22:02 Assessment & Plan 45yo female with a history of MRSA infection and uncontrolled diabetes mellitus admitted with diabetic foot infection / cellulitis acute, active #Diabetic foot infection / Cellulitis, acute, present on admission, moderate infection not meeting sepsis / SIRS criteria, h/o medical non-compliance. MRI showed fifth metatarsal OM, heel abscess. s/p calcaneal abscess drainage per Podiatry, culture pending. -pt with strong history of MRSA infections, seen in urgent care, started 1g ceftriaxone, clindamycin given in ED, clinically responding, switched to Ertapenem per ID , await final culture sensitivity, so far group B streptococcus -pt had reported culture positive for gram-negative rods(from urgent care), no further report since. -Appreciate podiatry input, final consensus is OM, then will require long-term tx. -appreciate ID for abx course upon d/c #Uncontrolled diabetes mellitus, chronic, remained hypoglycemic fasting [id number] today, in target. - Home dosing reported to be 50 units glargine twice daily; decreased to 40 units, increase back to 50unit, increase to 55unit 03/07 - pt seems not following dietary instruction, a1c14 - ordered diabetic education, teaching. -Had lengthy discussion about importance of sugar control, medication #drug abuse, POA, amphetamine+ on UTOX although pt denied. -appreciate SW input, pt is poor candidate for IV abx via PICC #Cervical radiculopathy, recent trauma on shoulder, POA, exam consistent to dislocation of the shoulder joint, xray negative for acute findings, continue pain control w/ motrin, OP follow up. chronic, stable #History of MRSA, ongoing, screen negative. #Tobacco dependence, chronic, ongoing, continue 21 mg nicotine patch available as needed - Discussed tobacco cessation, patient not considering quitting #Anxiety/depression, chronic, Continue home dosing of Adderall 30 mg 4 times daily, paliperidone 9 mg daily, lorazepam 1 mg 4 times daily as needed, aripiprazole 15 mg daily (decreased recently) - Holding Ambien 10 mg nightly at this time dispo: pending, living in her car, likely needs daily infusion at [facility] given drug abuse, appreciate ID input. DVT prophylaxis switch to LMWH qd Full code Diet - diabetic GI Prophylaxis: Not indicated VTE Prophylaxis: Sub-Q Heparin (Unfractionated) Resuscitation Status: CPR: Attempt Resuscitation Time spent 35 minutes Rinku Miranda MD Mar 09, 2016 11:26
--- NOTE | 2016-03-09 11:27 | PROG NOTE ---
[address] [address] PROGRESS NOTE PATIENT: ANGELA ARGUELLES : 1970 MR#: [id number] ADMIT: 03/04/2016 JOB ID: [id number] DATE: 03/09/2016 INFECTIOUS DISEASE FOLLOWUP: REASON FOR FOLLOWUP: Possible osteomyelitis, left foot. INTERIM HISTORY: Recall that this is our 45-year-old woman who is homeless and actually lives in a car with uncontrolled diabetes and recurrent foot and soft tissue infections. She is currently being treated for a severe left foot infection, which may or may not involve osteomyelitis as were dealing with ambiguous MRI and bone scan results. The patient reports today that she is free of fevers, chills or sweats. She has minimal pain in her left foot and she, liked the rest of us, is awaiting a decision from Podiatry as to whether or not it is felt that she has osteomyelitis. PHYSICAL EXAMINATION: Reveals an afebrile woman, temp 36.6, pulse 90, respiratory rate 18, blood pressure 94/57. She is saturating well on room air. Examination of the lungs reveals they are clear. Abdomen benign. Patient's mental status is normal. Her left foot is wrapped in a large postop type dressing and was applied by Dr. Lambert, which we did not remove during rounds. LABORATORIES: Include a white count of 7300, essentially normal diff. Creatinine 0.4. Streptozyme negative. The cultures from the foot reveal group B strep and Staph aureus. The susceptibilities on the Staph aureus will be out till tomorrow. Blood cultures a negative. MRSA screen negative. IMAGING: We reviewed yesterday, but basically a bone scan looks like possible osteo at the base of the left 5th toe and the MRI scan looked like possible osteo involving multiple toes, but especially the 5th. The x-ray of the foot, which was the plain x-ray, showed no osteo. The patient also had a shoulder x-ray which showed calcific tendonitis. IMPRESSION: This patient has a serious diabetic foot infection with group B strep and Staph aureus. Whether or not there is osteomyelitis remains to be determined, but both the MRI and a bone scan suggests there probably is. Dr. Lambert will be evaluating the patient surgically and may have the definitive answer to that question in the near future. If we believe the patient has osteo, she is going to be tough to treat as she lives in a car and home IV antibiotics will not be a practical solution RECOMMENDATIONS: 1. We will continue with ertapenem overnight while we await the Staph aureus susceptibilities. 2. I will discuss this patient more with Dr. Lambert after some additional debridement and evaluation of that bone to decide whether she should be treated with intravenous or oral antibiotics and for how long.
[2016-03-09 13:30] VITALS: BP 118/76; PULSE 87; RESP 18; O2SAT 96
[2016-03-09] MEDS: Ertapenem Inj 1,000 MG in 0.9% Sodium Chloride 50 ML IV SCH (13:51)
[2016-03-09 17:43] VITALS: BP 109/73; PULSE 100; RESP 17; O2SAT 97
[2016-03-09 20:00] VITALS: BP 109/67; PULSE 100; RESP 16; O2SAT 97
[2016-03-10 05:05] VITALS: BP 89/55; PULSE 91; RESP 17; O2SAT 96
--- NOTE | 2016-03-10 05:54 | NUR ---
BP Pt BP is 89/55. Pt states she feels fine. paged.
[2016-03-10] MEDS: HYDROcodone-APAP 5-325 mg Tablet PO PRN (05:58)
[2016-03-10] MEDS: Amphetamines (Mixed) 10 mg Tablet PO SCH ×4 (05:58→17:15)
[2016-03-10] MEDS ORDERED: 0.9% Sodium Chloride 1,000 ML IV SCH (06:10)
[2016-03-10] MEDS: Insulin LISPRO 300 Unit/3 mL Inj SUBQ SCH ×4 (08:00→22:00)
[2016-03-10 08:10] VITALS: BP 93/67; PULSE 95; RESP 14; O2SAT 97
[2016-03-10] MEDS: PALIPERIDONE 9 MG PO SCH (08:15)
[2016-03-10] MEDS: Insulin GLARgine 100 Unit/mL Syringe SUBQ SCH ×2 (08:16→21:13)
[2016-03-10] MEDS: MICONAZOLE 2% VAGINAL SCH (08:16)
[2016-03-10] MEDS: LORazepam 1 mg Tablet PO PRN (08:46)
--- NOTE | 2016-03-10 10:09 | PCM.PNMED ---
Subjective Date of Service Mar 10, 2016 Subjective No overnight event Patient stated that the vagina itchiness has decreased with topical azol Exam Vital Signs Vital Sign - Last Date Time Temp Pulse Resp B/P Pulse Ox O2 Delivery O2 Flow Rate FiO2 03/10/16 08:10 36.4 95 14 93/67 97 Room Air Intake and Output 03/09/16 03/09/16 03/10/16 Cumulative From/Thru 15:00 23:00 07:00 03/03/16 20:17 - 03/10/16 05:01 Intake Total 1502 ml 672 ml 99121 ml Output Total 4950 ml Balance 1502 ml 672 ml 8769 ml Intake Oral 1440 ml 672 ml 05959 ml IV Total 62 ml 2141 ml Output Urine Total 4950 ml # Voids 4 3 28 # Bowel Movements 1 2 Exam NAD, comfortably laying down on the bed no JVD, MMM, no LAD RRR, nl s1, s2 no mrg CTAB, no w,c S,ND,NT,normoactive BS+ Sterilely dressed left foot Right shoulder joint - nontender, no erythema, effusion. LROM up to 90degree IVs and Medications Medications Reviewed: Medications were reviewed in detail Lab and Diagnostics Result Diagram: 03/09/16 0507 03/09/16 0507 Microbiology cultures pending X-Rays, CTs and MRIs Patient Name: ANGELA ARGUELLES MR#: [id number] Location[place] [facility] [place] Ordering Phys: KYLAH MAY DO Date of Service: 03/03/162108 PROCEDURE: X-RAY LEFT FOOT, TWO VIEWS ([id number]) INDICATIONS: Cellulitis left foot TECHNIQUE: 2 views of the foot were acquired. COMPARISON: None. FINDINGS: Bones: No fractures or dislocations. No suspicious bony lesions. Soft tissues: No tibiotalar joint effusion. Achilles tendon appears normal. No soft tissue swelling. IMPRESSION: No acute radiographic findings. No findings to suggest osteomyelitis. Please note, plain film is less sensitive in the acute phases of osteomyelitis. If there is high clinical suspicion for osteomyelitis, contrast MRI of the foot is recommended. Dictated by: Catherine Wells M.D. on 03/03/2016 at 22:02 Approved by: Catherine Wells M.D. on 03/03/2016 at 22:02 Assessment & Plan 45yo female with a history of MRSA infection and uncontrolled diabetes mellitus admitted with diabetic foot infection / cellulitis acute, active #Diabetic foot infection / Cellulitis, acute, present on admission, moderate infection not meeting sepsis / SIRS criteria, h/o medical non-compliance. MRI showed fifth metatarsal OM, heel abscess. s/p calcaneal abscess drainage per Podiatry, culture pending. -Patient remained clinically stable -pt with strong history of MRSA infections, seen in urgent care, started 1g ceftriaxone, clindamycin given in ED, clinically responding, switched to Ertapenem per ID , await final culture sensitivity, so far group B streptococcus -pt had reported culture positive for gram-negative rods(from urgent care), no further report since. -Appreciate podiatry input, final consensus is OM, then will require [facility]. -appreciate ID for abx course upon d/c #Uncontrolled diabetes mellitus, chronic, remained hypoglycemic fasting [id number] today, in target. - Home dosing reported to be 50 units glargine twice daily; decreased to 40 units, increase back to 50unit, increase to 55unit 03/07 - pt seems not following dietary instruction, a1c14 - ordered diabetic education, teaching. -Had lengthy discussion about importance of sugar control, medication #drug abuse, POA, amphetamine+ on UTOX although pt denied. -appreciate SW input, pt is poor candidate for IV abx via PICC #Cervical radiculopathy, recent trauma on shoulder, POA, exam consistent to dislocation of the shoulder joint, xray negative for acute findings, continue pain control w/ motrin, OP follow up. chronic, stable #History of MRSA, ongoing, screen negative. #Tobacco dependence, chronic, ongoing, continue 21 mg nicotine patch available as needed - Discussed tobacco cessation, patient not considering quitting #Anxiety/depression, chronic, Continue home dosing of Adderall 30 mg 4 times daily, paliperidone 9 mg daily, lorazepam 1 mg 4 times daily as needed, aripiprazole 15 mg daily (decreased recently) - Holding Ambien 10 mg nightly at this time dispo: pending, living in her car, likely [place] [facility] [place] abuse, appreciate ID input. DVT prophylaxis switch to LMWH qd Full code Diet - diabetic GI Prophylaxis: Not indicated VTE Prophylaxis: Sub-Q Heparin (Unfractionated) Resuscitation Status: CPR: Attempt Resuscitation Time spent 35 minutes Rinku Miranda MD Mar 10, 2016 10:09
--- NOTE | 2016-03-10 12:08 | PROG NOTE ---
[address] [address] PROGRESS NOTE PATIENT: ANGELA ARGUELLES : 1970 MR#: [id number] ADMIT: 03/04/2016 JOB ID: [id number] DATE: 03/10/2016 REASON FOR FOLLOWUP: Osteomyelitis, left foot. HISTORY OF PRESENT ILLNESS: This patient is felt to have osteomyelitis by MRI scan and bone scan, though both of these studies are actually a bit equivocal. Today, she reports no additional new complaints, no fevers, chills, or sweats. No pulmonary or GI symptoms. Minimal pain in her left foot at the site of her recent debridements. She is anxious to go home now. Recall that she actually lives in a car but says she can stay with a friend, at least in the short term. PHYSICAL EXAMINATION: Reveals an afebrile woman. Temp 36.4, pulse 95, respiratory rate 14. Blood pressure 93/67. She is saturating well on room air. Oral cavity negative. Lungs clear. Abdomen benign. The left foot is dressed in a post debridement dressing, but the visible portions of the left lateral forefoot show evidence of a comprehensive debridement. LABORATORIES: Include white count 7300. Creatinine is 0.4. Streptozyme 170. Cultures from the foot are growing group B strep and Staph aureus. The Staph aureus turns out to be MSSA, resistant to tetracycline and clindamycin interestingly, but susceptible to other agents including Bactrim and linezolid. Dr. Lambert last evaluated the patient apparently two days ago, and at that point was uncertain regarding the MRI and bone scan because the patient does have a foreign body in her left 5th toe which was placed to correct a hammertoe in the past. On the whole, however, I spoke to Dr. Lambert about this case, and she believes that there is likely to be osteo. IMPRESSION: Osteomyelitis with methicillin-sensitive Staphylococcus aureus and group B Streptococcus. Anaerobes are also likely to be present in this process. RECOMMENDATIONS: 1. Will continue for now with ertapenem at current doses. This will be reasonable coverage for the MSSA as well as group B strep as well as any anaerobes. 2. The patient wishes to be discharged in the next few days, but her location and the ability for her to receive IV outpatient therapy seems a little dodgy to me. It may be that we will wish to proceed with some sort a combination of long-acting IV agent plus oral therapy rather than send her home with a PICC line. 3. For the time being, I would keep the patient in the hospital over the weekend and will re-evaluate her cultures and discharge planning early next week.
[2016-03-10] MEDS: HYDROcodone-APAP 7.5-325 mg Tablet PO PRN ×2 (12:14→18:26)
[2016-03-10] MEDS: Ertapenem Inj 1,000 MG in 0.9% Sodium Chloride 50 ML IV SCH (14:27)
--- NOTE | 2016-03-10 14:31 | PCM.PNPOD ---
Subjective Date of Service: Mar 09, 2016 Date of Service: Mar 09, 2016 Visit Information: Reason for Visit Cellulitis Surgery/Surgery Date Post-Op Day # Date of Admission: Mar 04, 2016 at 00:34 Hospital Day # Subjective: patient resting comfortably in bed in NAD. History of left 5th met head ulcer and abscess as well as posterior heel abscess. Patient has no new complaints. Postop General: No Complaints Gastrointestinal: Good Appetite Pain Management: PO Objective Vital Sign - Last Date Time Temp Pulse Resp B/P Pulse Ox O2 Delivery O2 Flow Rate FiO2 03/10/16 08:10 36.4 95 14 93/67 97 Room Air Intake and Output 03/09/16 03/09/16 03/10/16 Cumulative From/Thru 15:00 23:00 07:00 03/03/16 20:17 - 03/10/16 05:01 Intake Total 1502 ml 672 ml 65103 ml Output Total 4950 ml Balance 1502 ml 672 ml 8769 ml Intake Oral 1440 ml 672 ml 38928 ml IV Total 62 ml 2141 ml Output Urine Total 4950 ml # Voids 4 3 28 # Bowel Movements 1 2 Result Diagram: 03/09/16 0507 03/09/16 0507 Lab Test 03/03/16 21:36 03/03/16 22:10 03/06/16 00:13 03/06/16 06:40 Erythrocyte Sedimentation Rate 8mm/hr (0-32) Hemoglobin A1c 13.3% (4.8-5.6) Lactic Acid Level 1.7mmol/L (0.4-2.0) C-Reactive Protein 1.5mg/dL (0.0-0.5) Urine HCG, Qualitative Negative (Negative) Urine Opiates Screen Negative Urine Methadone Screen Negative Urine Barbiturates Screen Negative Urine Amphetamines Screen Positive Urine Benzodiazepines Screen Negative Urine Cocaine Metabolite Screen Negative Urine Cannabinoids Screen Negative Vancomycin Level Trough 9.0mcg/mL Streptozyme 169.3IU/mL (0.0-200.0) Test 03/06/16 08:30 03/08/16 06:00 03/09/16 05:07 Hold Urine Received (Received) Hematology Comments Phosphorus Level 4.7mg/dL (2.5-4.9) Magnesium Level 1.9mg/dL (1.6-2.6) White Blood Count 7.3th/mm3 (3.8-10.1) Red Blood Count 4.64mil/mm3 (3.90-5.20) Hemoglobin 13.8g/dL (12.0-15.6) Hematocrit 41.9% (35.0-46.0) Mean Corpuscular Volume 90.3fL (81-100) Mean Corpuscular Hemoglobin 29.7pg (27.0-35.0) Mean Corpuscular Hemoglobin Concent 32.9% (32.0-37.0) Red Cell Distribution Width 12.7% (12.3-15.4) Platelet Count 206bil/L (150-400) Neutrophils (%) (Auto) 41.0% (40-74) Lymphocytes (%) (Auto) 46.3% (14-46) Monocytes (%) (Auto) 7.8% (4-12) Eosinophils (%) (Auto) 4.1% (0-5) Basophils (%) (Auto) 0.7% (0-3) Sodium Level 137mEq/L (134-144) Potassium Level 4.4mEq/L (3.5-5.2) Chloride Level 100mEq/L (97-108) Carbon Dioxide Level 28mmol/L (18-29) Blood Urea Nitrogen 15mg/dL (6-24) Creatinine 0.40mg/dL (0.57-1.00) Estimat Glomerular Filtration Rate 246mL/min (>59) Glucose Level 223mg/dL (60-99) Calcium Level 8.8mg/dL (8.5-10.1) Total Bilirubin 0.2mg/dL (0.0-1.2) Aspartate Amino Transf (AST/SGOT) 18U/L (0-50) Alanine Aminotransferase (ALT/SGPT) 20U/L (0-32) Alkaline Phosphatase 95U/L (25-150) Total Protein 5.9g/dL (6.4-8.4) Albumin 3.5g/dL (3.4-5.0) Exam General: Alert, Oriented X3, Cooperative Lower Extremities: Left: Edema localized (forefoot lateral and dorsal, heel resolved) Extremity warm (erythema forefoot lateral and dorsal) Lower Extremity Pulses: Palpable: Left Dorsalis Pedis Left Posterior Tibal Right Dorsalis Pedis Right Posterior Tibal Postop Sensory Motor: Decreased Sensation Podiatry WOUND : Wound Location/Description 5ht met head ulceration full thickness to capsule layer without exposed bone or tendon . no mal odor. minimal surrounding erythema. extending 1 cm beyond wound edges. wound bed is fibrotic with minimal local necrotic tissue. no purulence noted. wound measures 1.5 cm x 1 cm x .4 cm posterior heel wound is healed. Assessment & Plan Impression stable left foot ulceration. Problems: (1) Abscess of foot excluding toes Plan: A local block was given today of 3 ml 2% lidocaine plain. extensive local debridement of the wound was preformed with removal of all fibrotic and necrotic tissue. healthy bleeding tissue was noted to the wound bed. no purulent drainage noted healthy tissue appears to be covering bone and tendon. this wound was dressed with betadine soaked gauze kerlix and tape. Dressing changes to be preformed every 48-72 hrs. stable for discharge to outpatient care- patient states that she has friends that she will be staying with upon discharge. follow antibiotic recs per Dr. Koch weightbearing to left heel only Status: Acute ICD Code: L02.619 (2) Cellulitis Qualifiers: Site of cellulitis: extremity Site of cellulitis of extremity: lower extremity Laterality: left Qualified Code: L03.116 - Cellulitis of left lower limb Status: Acute ICD Code: L03.90 VTE Prophylaxis: Sub-Q Heparin (Unfractionated) Boby Najera DPM Mar 10, 2016 14:31
[2016-03-10 15:40] VITALS: BP 113/64; PULSE 68; RESP 12; O2SAT 100
--- NOTE | 2016-03-10 16:01 | NUR ---
Pt instructed that she must stay on floor while a patient, may not leave. May not wander to other parts of hospital. Pt stated understanding of rules.
--- NOTE | 2016-03-10 16:02 | NUR ---
Social Work: Continued Discharge Planning Data & Assessment: Patient was discussed in daily rounds and physician recommended that the patient be referred to [facility] for IV ABX. SW notified [facility] specialist and patient will be referred to [facility] for possible admission to complete IV Abx. SW will continue to follow patient for discharge planning needs. Plan: It is likely that the patient will discharge to [facility] if accepted. SW will continue to follow. Tiffanie Donaldson LMSW, EDWIN
--- NOTE | 2016-03-10 16:16 | PCM.PNPOD ---
Subjective Date of Service: Mar 10, 2016 Visit Information: Reason for Visit Cellulitis / Abscesses, left foot Date of Admission: Mar 04, 2016 at 00:34 Gastrointestinal: Good Appetite Pain Management: PO, Continued Pain Issues Postop Activity: Ambulating Independently (with postop shoe on left foot) Objective Vital Sign - Last Date Time Temp Pulse Resp B/P Pulse Ox O2 Delivery O2 Flow Rate FiO2 03/10/16 15:40 36.6 68 12 113/64 100 Room Air Intake and Output 03/09/16 03/09/16 03/10/16 Cumulative From/Thru 15:00 23:00 07:00 03/03/16 20:17 - 03/10/16 05:01 Intake Total 1502 ml 672 ml 46865 ml Output Total 4950 ml Balance 1502 ml 672 ml 8769 ml Intake Oral 1440 ml 672 ml 14028 ml IV Total 62 ml 2141 ml Output Urine Total 4950 ml # Voids 4 3 28 # Bowel Movements 1 2 Result Diagram: 03/09/16 0507 03/09/16 0507 Lab Test 03/03/16 21:36 03/03/16 22:10 03/06/16 00:13 03/06/16 06:40 Erythrocyte Sedimentation Rate 8mm/hr (0-32) Hemoglobin A1c 13.3% (4.8-5.6) Lactic Acid Level 1.7mmol/L (0.4-2.0) C-Reactive Protein 1.5mg/dL (0.0-0.5) Urine HCG, Qualitative Negative (Negative) Urine Opiates Screen Negative Urine Methadone Screen Negative Urine Barbiturates Screen Negative Urine Amphetamines Screen Positive Urine Benzodiazepines Screen Negative Urine Cocaine Metabolite Screen Negative Urine Cannabinoids Screen Negative Vancomycin Level Trough 9.0mcg/mL Streptozyme 169.3IU/mL (0.0-200.0) Test 03/06/16 08:30 03/08/16 06:00 03/09/16 05:07 Hold Urine Received (Received) Hematology Comments Phosphorus Level 4.7mg/dL (2.5-4.9) Magnesium Level 1.9mg/dL (1.6-2.6) White Blood Count 7.3th/mm3 (3.8-10.1) Red Blood Count 4.64mil/mm3 (3.90-5.20) Hemoglobin 13.8g/dL (12.0-15.6) Hematocrit 41.9% (35.0-46.0) Mean Corpuscular Volume 90.3fL (81-100) Mean Corpuscular Hemoglobin 29.7pg (27.0-35.0) Mean Corpuscular Hemoglobin Concent 32.9% (32.0-37.0) Red Cell Distribution Width 12.7% (12.3-15.4) Platelet Count 206bil/L (150-400) Neutrophils (%) (Auto) 41.0% (40-74) Lymphocytes (%) (Auto) 46.3% (14-46) Monocytes (%) (Auto) 7.8% (4-12) Eosinophils (%) (Auto) 4.1% (0-5) Basophils (%) (Auto) 0.7% (0-3) Sodium Level 137mEq/L (134-144) Potassium Level 4.4mEq/L (3.5-5.2) Chloride Level 100mEq/L (97-108) Carbon Dioxide Level 28mmol/L (18-29) Blood Urea Nitrogen 15mg/dL (6-24) Creatinine 0.40mg/dL (0.57-1.00) Estimat Glomerular Filtration Rate 246mL/min (>59) Glucose Level 223mg/dL (60-99) Calcium Level 8.8mg/dL (8.5-10.1) Total Bilirubin 0.2mg/dL (0.0-1.2) Aspartate Amino Transf (AST/SGOT) 18U/L (0-50) Alanine Aminotransferase (ALT/SGPT) 20U/L (0-32) Alkaline Phosphatase 95U/L (25-150) Total Protein 5.9g/dL (6.4-8.4) Albumin 3.5g/dL (3.4-5.0) Exam General: Alert, Oriented X3, Cooperative Lower Extremities: Left: Edema localized (resolved) Extremity warm (erythema forefoot lateral, minimal) Lower Extremity Pulses: Palpable: Left Dorsalis Pedis Left Posterior Tibal Right Dorsalis Pedis Right Posterior Tibal Postop Sensory Motor: Decreased Sensation Podiatry WOUND : Wound Location/Description Heel wound healed Left lateral 5th met head wound clean and granular 1.5 cm x 1 cm x .4 cm Assessment & Plan Problems: (1) Abscess of foot excluding toes Plan: Dressing changed today, to be preformed every 48-72 hrs. stable for discharge to outpatient care- patient states that she has friends that she will be staying with upon discharge. follow antibiotic recs per Dr. Koch weightbearing to left heel only in postop shoe Status: Acute ICD Code: L02.619 (2) Cellulitis Qualifiers: Site of cellulitis: extremity Site of cellulitis of extremity: lower extremity Laterality: left Qualified Code: L03.116 - Cellulitis of left lower limb Status: Acute ICD Code: L03.90 VTE Prophylaxis: Sub-Q Heparin (Unfractionated) Lashon Lambert DPM Mar 10, 2016 16:16
[2016-03-10 21:03] VITALS: BP 124/75; PULSE 100; RESP 17; O2SAT 98
[2016-03-11] MEDS: HYDROcodone-APAP 7.5-325 mg Tablet PO PRN ×4 (00:35→19:29)
[2016-03-11 01:55] VITALS: BP 98/55; PULSE 94; RESP 16; O2SAT 95
[2016-03-11] MEDS: LORazepam 1 mg Tablet PO PRN ×3 (04:33→21:05)
--- NOTE | 2016-03-11 05:22 | NUR ---
Anxious Pt was somewhat anxious and stated about wanting to go home soon. Pt was gently reminded why she was still in the hospital and possible consequences due to leaving too early. Pt understood reinforcement.
[2016-03-11] MEDS: Amphetamines (Mixed) 10 mg Tablet PO SCH ×4 (06:38→17:31)
[2016-03-11 07:04] VITALS: BP 104/61; PULSE 96; RESP 18; O2SAT 98
[2016-03-11] MEDS: PALIPERIDONE 9 MG PO SCH ×2 (08:30→15:57)
[2016-03-11] MEDS: Insulin GLARgine 100 Unit/mL Syringe SUBQ SCH ×2 (08:59→23:05)
[2016-03-11] MEDS: MICONAZOLE 2% VAGINAL SCH (08:59)
[2016-03-11] MEDS: Insulin LISPRO 300 Unit/3 mL Inj SUBQ SCH ×4 (09:00→23:00)
[2016-03-11 14:14] VITALS: BP 114/71; PULSE 96; RESP 18; O2SAT 96
--- NOTE | 2016-03-11 15:30 | NUR ---
Pts own medication pt brought own medication in. Walked it to the pharmacy and had it clarified. Pt insisted that dose be given right now "I am withdrawing from this medication. 1700 called pharmacy to clarify dose should be given in am per home routine. He stated with check with the pharmacist.
--- NOTE | 2016-03-11 15:50 | NUR ---
Patient signed RYNE @ 10:30 am
[2016-03-11] MEDS: Ertapenem Inj 1,000 MG in 0.9% Sodium Chloride 50 ML IV SCH (17:11)
[2016-03-11 19:06] VITALS: BP 99/64; PULSE 95; RESP 18; O2SAT 95
--- NOTE | 2016-03-11 19:48 | NUR ---
Behavior Pt insisting she have own medication supply of Invega. Charge nurse informed pt it needed to be checked by pharmacy prior to dispensing to patient. It was then taken down to pharmacy for verification. Pt became upset and was unable to be reasoned with. Pt put her coat on and stated "I need to go to my car." Pt walked off floor around 1510. This nurse followed her from a distance and called security, pt was followed to outside of hospital where pt refused to speak with either nurse or security, continuing to state "just leave me alone" "I need to go to my car". Pt was left to walk off. Nursing clerical supervisor was contacted. Pt came back to room around 1550. Nursing clerical supervisor instructed nursing staff to allow her to stay on unit. Per nursing clerical supervisor have her sign a behavior contract and inform her if she leaves floor again she will not be able to come back and will have to be readmitted through ED. Pt refused to sign behavior contract, but was given a copy and a copy was put in chart.
[2016-03-12 00:35] VITALS: BP 102/68; PULSE 95; RESP 16; O2SAT 95
--- NOTE | 2016-03-12 00:38 | PCM.PNMED ---
Subjective Date of Service Mar 12, 2016 Subjective She walked out of the hospital today against the advice of the nursing staff. She returned shortly thereafter with no new complaints. She was asking when she could go home after the episode. Exam Vital Signs Vital Sign - Last Date Time Temp Pulse Resp B/P Pulse Ox O2 Delivery O2 Flow Rate FiO2 03/11/16 19:06 36.8 95 18 99/64 95 Room Air Intake and Output 03/11/16 03/11/16 03/12/16 Cumulative From/Thru 15:00 23:00 07:00 03/03/16 20:17 - 03/11/16 20:01 Intake Total 2241 ml 80941 ml Output Total 4950 ml Balance 2241 ml 40965 ml Intake Oral 2181 ml 72991 ml IV Total 60 ml 3967 ml Output Urine Total 4950 ml # Voids 7 42 # Bowel Movements 1 3 Exam General: Patient is in no apparent distress. She is laying comfortably flat in bed on her left side. HEENT: Head is atraumatic normocephalic. Eyes: Pupils are equally round and reactive to light and accommodation. Extraocular muscles are intact. Sclera are white anicteric. Subconjunctival mucosa is pink. Ears and nose are unremarkable. Oropharynx: There is no mucosal lesions, there is no thrush, there is no pharyngitis. Neck: Is supple, there are no nodes or masses or tenderness. Chest: Is clear to auscultation and percussion. There are no rales, rhonchi, wheezes or rubs. Heart: Rate rhythm is regular. There is no new murmur rub or gallop. Abdomen: Good bowel sounds are present. Abdomen is obese, soft, nontender, no organomegaly or masses were appreciated. Extremities: Are symmetrical and well perfused. The left foot dressing is clean dry and intact. Neurologic: There are no focal neurological deficits. Cranial nerves II through XII are intact. There are no sensory or motor deficits. Psychiatric: Patients mood is calm and shows no sign of agitation. Genital: Deferred Rectal: Deferred Lab and Diagnostics Result Diagram: 03/09/16 0507 03/09/16 0507 Microbiology cultures pending X-Rays, CTs and MRIs Patient Name: ANGELA ARGUELLES MR#: [id number] Location: SED Ordering Phys: KYLAH MAY DO Date of Service: 03/03/162108 PROCEDURE: X-RAY LEFT FOOT, TWO VIEWS ([id number]) INDICATIONS: Cellulitis left foot TECHNIQUE: 2 views of the foot were acquired. COMPARISON: None. FINDINGS: Bones: No fractures or dislocations. No suspicious bony lesions. Soft tissues: No tibiotalar joint effusion. Achilles tendon appears normal. No soft tissue swelling. IMPRESSION: No acute radiographic findings. No findings to suggest osteomyelitis. Please note, plain film is less sensitive in the acute phases of osteomyelitis. If there is high clinical suspicion for osteomyelitis, contrast MRI of the foot is recommended. Dictated by: Catherine Wells M.D. on 03/03/2016 at 22:02 Approved by: Catherine Wells M.D. on 03/03/2016 at 22:02 PROCEDURE: X-RAY RIGHT SHOULDER, MINIMUM TWO VIEWS ([id number]) INDICATIONS: shoulder dislocation TECHNIQUE: 3 views of the shoulder were acquired. COMPARISON: None. FINDINGS: Bones: No fractures or dislocations. No suspicious bony lesions. Visualized ribs appear intact. Mild joint narrowing with periarticular osteophyte formation of the acromioclavicular and glenohumeral joints. Soft tissues: No calcific tendinitis or rotator cuff. IMPRESSION: Osteoarthritic changes and calcific tendinitis. Dictated by: Bossman Cam[place] [facility] Interpreted: Karan Al MD on 03/08/2016 at 11: 24 Transcribed by: RADHA on 03/08/2016 at 11:25 PROCEDURE: NM BONE SCAN THREE PHASE RADIOPHARMACEUTICAL: 26.6 mCi Tc-99m MDP IV. INDICATIONS: LEFT FOOT OSTEOMYLITIS. TECHNIQUE: Multiple bone scintigrams were obtained after intravenous injection of Tc-99m MDP, including flow, blood pool, and delayed images centered to the region of interest. COMPARISON: [facility], MR, MR FOREFOOT LT W&WO CON, 03/05/2016, 13: 39. [facility], CR, XR FOOT 2VW LT, 03/03/2016, 21:29. FINDINGS: The flow and blood pool images demonstrate increased activity in the lateral aspect of the distal left foot. On delayed images, there is focal uptake at the base of the left fifth toe. The scintigraphic findings are compatible with osteomyelitis at the base of the fifth toe. IMPRESSION: Suspect osteomyelitis at the base of the left fifth toe. Dictated by: Nazia Dnucan M.D. on 03/08/2016 at 9:18 Approved by: Nazia Duncan M.D. on 03/08/2016 at 9:45 PROCEDURE: MRI FOREFOOT LEFT WITH AND WITHOUT CONTRAST ([id number]) INDICATIONS: Calcaneal and first metatarsal osteomyelitis. TECHNIQUE: Multiplanar, multisequence MR imaging of the forefoot and hindfoot was obtained without and with intravenous contrast. COMPARISON: [facility], CR, XR FOOT 2VW LT, 03/03/2016, 21:29. FINDINGS: Image quality: Motion artifact on multiple imaging sequences does result in image degradation in suboptimal evaluation for subtle bony and soft tissue abnormalities. Bones and joints: There is no displaced fracture or dislocation evident involving the osseous structures of the left forefoot, midfoot, or hindfoot. The midfoot and hindfoot bones are well-visualized and within normal limits without evidence of an acute fracture. Additionally, no abnormal signal or enhancement is evident involving the midfoot or hindfoot bones. Evaluation of the forefoot bones is limited on this examination related to motion artifact on all of the imaging sequences that includes the forefoot. Specifically, evaluation of the toes is inadequate on this examination. There is questionable edema involving the head of the fifth metatarsal and the corresponding proximal phalanx of the fifth metatarsal (image 19, series 20). There is questionable fracture involving the proximal phalanx of the fifth toe. The other fluid sensitive sequences through the forefoot are in suboptimal for evaluation of subtle marrow edema; however, there may be edema involving the phalanges of the fourth toe and fifth toe with corresponding enhancement. It is uncertain whether this edema is real or artifactual related to inhomogeneous fat suppression, as no definitive abnormal signal is appreciated on the conventional T1 images before contrast without fat suppression. Soft tissues: There is prominent soft tissue edema with corresponding enhancement identified along the lateral margin of the forefoot, which predominantly is seen along the distal margins of the fourth and fifth tarsometatarsal regions. These findings are more pronounced along the fifth tarsometatarsal region. Phlegmonous soft tissue changes with probable small loculated fluid collection along the lateral margin of the head of the fifth metatarsal is present, which demonstrates corresponding enhancement and tracks very near the level of the bone. The lung the dorsal aspect of the proximal phalanx of the fifth toe, there is a 1 cm structure demonstrating decreased signal intensity on all imaging sequences without surrounding artifact (image 18 , series 17 and image 18, series 24), which appears to represent a foreign body. There is a 2.0 x 1.3 cm fluid collection identified underlying the skin along the posterior margin of the heel (image 14, series 8) that is contained within the subcutaneous tissues. This is not necessarily abut the calcaneus. No definite additional fluid collections are evident within the forefoot or hindfoot. No significant atrophy of the intrinsic muscles of the forefoot are appreciated. The ligamentous structures of the forefoot are not well evaluated related to motion. The tendons of the forefoot appear to be within normal limits. The Lisfranc ligament appears intact. The Achilles tendon is within normal limits. Mild thickening of the medial band of the plantar fascia is present. IMPRESSION: 1. Prominent soft tissue edema along the lateral margin of the forefoot, centered at the fourth and fifth metatarsophalangeal joints without a drainable fluid collection evident. While this study is not diagnostic for osteomyelitis within this region, there likely is osteomyelitis of the head of the fifth metatarsal and the phalanges of the fifth toe. Artifact from motion and inhomogeneous fat suppression limits evaluation of the other toes. However, there is suspicion for osteomyelitis within the third and fourth toes as well. A 3 phase bone scan or repeat MRI when the patient is able to tolerate holding still to more definitively ascertain the bones within this region is recommended. 2. There appears to be a thin 1 cm foreign body (non metallic) along the dorsal aspect of the proximal phalanx of the fifth toe. Please correlate clinically. 3. Small posterior heel soft tissue abscess. No evidence of calcaneal osteomyelitis. 4. Questionable proximal phalangeal fifth toe fracture. Oblique x-ray imaging of the forefoot would be helpful for better evaluation. Dictated by: Tapan Ma M.D. on 03/05/2016 at 15:31 Approved by: Tapan Ma M.D. on 03/05/2016 at 15:51 Assessment & Plan 45yo female with a history of MRSA infection and uncontrolled diabetes mellitus admitted with diabetic foot infection / cellulitis acute, active #Diabetic foot infection / Cellulitis/with osteomyelitis confirmed by MRI and bone scan, acute, present on admission, moderate infection not meeting sepsis / SIRS criteria, h/o medical non-compliance. MRI 03/05 showed fifth metatarsal OM, heel abscess. s/p calcaneal abscess drainage 03/06 per Podiatry, culture pending. -Patient remained clinically stable -pt with strong history of MRSA infections, seen in urgent care, started 1g ceftriaxone, clindamycin given in ED, clinically responding, switched to Ertapenem per ID , await final culture sensitivity, so far group B streptococcus -pt had reported culture positive for gram-negative rods(from urgent care), no further report since. -Appreciate podiatry input, final consensus is OM, then will require alf tx. -appreciate ID for abx course upon d/c #Uncontrolled diabetes mellitus, chronic, - Home dosing reported to be 50 units glargine twice daily; decreased to 40 units, increase back to 50unit, increase to 55unit 03/07 - pt seems not following dietary instruction, [id number] - ordered diabetic education, teaching. -Had lengthy discussion about importance of sugar control, medication #drug abuse, POA, amphetamine+ on UTOX although pt denied. -Patient left the hospital for short period time today and was told that she cannot do that again otherwise she will have to go to the emergency room for further care. -appreciate SW input, pt is poor candidate for IV abx via PICC as she is essentially homeless and has history of drug use. Will need to discuss discharge planning with Dr. Koch on Sunday. #Cervical radiculopathy, recent trauma on shoulder, POA, exam consistent to dislocation of the shoulder joint, xray negative for acute findings, continue pain control w/ motrin, OP follow up. chronic, stable #History of MRSA, ongoing, screen negative. #Tobacco dependence, chronic, ongoing, continue 21 mg nicotine patch available as needed - Discussed tobacco cessation, patient not considering quitting #Anxiety/depression, chronic, Continue home dosing of Adderall 30 mg 4 times daily, paliperidone 9 mg daily, lorazepam 1 mg 4 times daily as needed, aripiprazole 15 mg daily (decreased recently) - Holding Ambien 10 mg nightly at this time dispo: pending, living in her car, likely needs daily infusion at [facility] [place] given drug abuse, appreciate ID input. We will discuss discharge planning with Dr. Koch on Sunday. DVT prophylaxis switch to LMWH qd Full code Diet - diabetic Pain Evaluation: Adequate Pain Control GI Prophylaxis: Not indicated VTE Prophylaxis: Sub-Q Heparin (Unfractionated) Resuscitation Status: CPR: Attempt Resuscitation TiffanyNnamdi MD Mar 12, 2016 00:37
[2016-03-12] MEDS: HYDROcodone-APAP 7.5-325 mg Tablet PO PRN ×4 (02:16→21:32)
[2016-03-12] MEDS: LORazepam 1 mg Tablet PO PRN ×2 (03:59→19:06)
--- NOTE | 2016-03-12 04:42 | NUR ---
pain/Behavior c/o 7-8 left foot pain. Administered PO PRN Coward and Ibuprofen. pt report pain relief on rate of 4-5 which is her goal. pt has been calm and cooperative with care. no concerns or any complains. gave Ativan times two per pt request. will continue to monitor.
[2016-03-12 04:45] VITALS: BP 96/61; PULSE 89; RESP 16; O2SAT 94
[2016-03-12] MEDS: Amphetamines (Mixed) 10 mg Tablet PO SCH ×4 (06:24→16:00)
[2016-03-12 07:03] LABS: BASOPHILS % (AUTO) 0.9 % (0-3); EOSINOPHILS % (AUTO) 5.1 % (0-5); MONOCYTES % (AUTO) 11.6 % (4-12); Mean Corpuscular Hemoglobin 29.7 pg (27.0-35.0); Mean Corpuscular Volume 90.6 fL (81-100); NEUTROPHILS % (AUTO) 38.7 % (40-74); Platelet Count 198 bil/L (150-400)
[2016-03-12 07:20] LABS: Magnesium 1.8 mg/dL (1.6-2.6); Phosphorus 4.3 mg/dL (2.5-4.9)
[2016-03-12 07:40] VITALS: BP 104/70; PULSE 89; RESP 14; O2SAT 93
[2016-03-12 07:40] LABS: ERYTHROCYTE SEDIMENTATION RATE 14 mm/hr (0-32)
[2016-03-12] MEDS: Insulin LISPRO 300 Unit/3 mL Inj SUBQ SCH ×4 (07:43→21:27)
[2016-03-12] MEDS: Insulin GLARgine 100 Unit/mL Syringe SUBQ SCH ×2 (07:59→22:00)
[2016-03-12] MEDS: MICONAZOLE 2% VAGINAL SCH (08:01)
[2016-03-12] MEDS: PALIPERIDONE 9 MG PO SCH (08:47)
[2016-03-12] MEDS: Ertapenem Inj 1,000 MG in 0.9% Sodium Chloride 50 ML IV SCH (14:13)
--- NOTE | 2016-03-12 15:51 | NUR ---
Social Work Note: Continued Discharge Planning Data& Assessment: SW met with pt at bedside to confirm discharge plan and asses for any unmet needs. Pt explained she does not want to be admitted at [facility] and would prefer if she could leave and come back for her IV abx. Per progress note, ID plans to re-evaluate pt culture and DC plan the beginning of this week. SW to notify MD of pt possibly declining IV abx at [facility]. Pt denies any other needs at this time. SW to continue to follow. Plan: Anticipated DC back into prior living situation when medically ready. Anticipated IV abx in MOC post discharge vs. remaining hospitalized for the remainder of her abx course vs. [facility] for IV abx if pt is agreeable. Pt denies any other needs at this time. SW to continue to follow. MOISE Canseco
[2016-03-12 16:25] VITALS: BP 93/66; PULSE 112; RESP 18; O2SAT 97
--- NOTE | 2016-03-12 16:44 | NUR ---
Meds/Behavior Per pharmacy, they are out of adderall and will not be restocked until tomorrow. Unable to give 1600 dose. Pt has not attempted to leave unit today, has been calm w/o anxious behavior. Addendum: 03/12/16 at 1746 by LIANA SRINIVASAN RN Pt was notified that med was unavailable this evening
[2016-03-12 21:12] VITALS: BP 124/81; PULSE 95; RESP 18; O2SAT 96
--- NOTE | 2016-03-13 01:41 | NUR ---
activity patient moving independently in bed. discussed plan of care given emotional support. care ongoing.
[2016-03-13 04:46] VITALS: BP 115/76; PULSE 90; RESP 18; O2SAT 93
[2016-03-13] MEDS: HYDROcodone-APAP 7.5-325 mg Tablet PO PRN ×3 (04:58→17:12)
[2016-03-13] MEDS: Amphetamines (Mixed) 20 mg Tablet PO SCH ×4 (06:08→17:11)
[2016-03-13] MEDS: Insulin LISPRO 300 Unit/3 mL Inj SUBQ SCH ×2 (07:32→12:33)
[2016-03-13] MEDS: PALIPERIDONE 9 MG PO SCH (07:33)
[2016-03-13] MEDS: Insulin GLARgine 100 Unit/mL Syringe SUBQ SCH (07:33)
[2016-03-13] MEDS: MICONAZOLE 2% VAGINAL SCH (07:35)
[2016-03-13 07:40] VITALS: BP 107/72; PULSE 99; RESP 12; O2SAT 96
[2016-03-13 09:36] LABS: BASOPHILS % (AUTO) 0.4 % (0-3); EOSINOPHILS % (AUTO) 3.4 % (0-5); MONOCYTES % (AUTO) 10.4 % (4-12); Mean Corpuscular Hemoglobin 29.8 pg (27.0-35.0); Mean Corpuscular Volume 89.1 fL (81-100); Platelet Count 203 bil/L (150-400)
[2016-03-13 10:05] LABS: Magnesium 1.6 mg/dL (1.6-2.6)
--- NOTE | 2016-03-13 11:12 | NUR ---
Case Management: CRUZ delivered and explained. Original placed in chart. Copy left at bedside. Varsha Monroy RN
--- NOTE | 2016-03-13 11:49 | NUR ---
discharge plans per hospitalist, ID, and wound care/podiatry, pt to have PICC line placed and return for outpt antibiotics and wound care to her left foot. Pt agrees to this plan.
--- NOTE | 2016-03-13 11:57 | PCM.DIMED ---
Discharge Instructions Date of Service Mar 13, 2016 Dates of Hospitalization Mar 04, 2016 at 00:34 Discharge Diagnosis Discharge Diagnosis Osteomyelitis of the Left Foot Diet Diabetic Activity No restrictions (May increase daily activity gradually as tolerated.) Call your provider Fever or Chills, Shortness of breath, Bleeding, Chest pain, Vomitting, Excessive diarrhea, Weakness (unilateral), Other Patient Instructions Follow-up with PCP in: 1 week (Patient has a referral to a new PCP at home. She will follow up with that DrGisell after she gets home) Provider: Lashon Lambert DPM Follow-up in: 1 week (Patient is to follow up in 48 hours) Nnamdi Allen MD Mar 13, 2016 11:57
[2016-03-13] MEDS ORDERED: AMPH30TA3 PO (12:20)
[2016-03-13] MEDS ORDERED: INSU100V7 SUBQ (12:20)
[2016-03-13] MEDS ORDERED: ARIP30TA PO (12:20)
[2016-03-13] MEDS ORDERED: SERT100T9 PO (12:20)
[2016-03-13] MEDS ORDERED: INSU100V28 SUBQ (12:20)
[2016-03-13] MEDS ORDERED: GLIP5TAB26 PO (12:20)
[2016-03-13] MEDS ORDERED: METF1000 PO (12:20)
[2016-03-13] MEDS ORDERED: HYDR-4003 PO (12:20)
[2016-03-13] MEDS ORDERED: NICO1PAT6 TOPICAL (12:20)
[2016-03-13] MEDS ORDERED: MICO45CR10 VAGINAL (12:20)
[2016-03-13] MEDS ORDERED: IBUP400T22 PO (12:20)
[2016-03-13] MEDS ORDERED: PALI9TAB PO (12:20)
[2016-03-13] MEDS ORDERED: LORA1TAB PO (12:20)
[2016-03-13] MEDS ORDERED: 0.9% Sodium Chloride 100 ML ONE (13:52)
[2016-03-13] MEDS: Ertapenem Inj 1,000 MG in 0.9% Sodium Chloride 50 ML IV SCH (14:01)
[2016-03-13] MEDS: LORazepam 1 mg Tablet PO PRN (14:12)
--- NOTE | 2016-03-13 14:39 | PCM.PNPOD ---
Subjective Date of Service: Mar 13, 2016 Date of Service: Mar 13, 2016 Visit Information: Reason for Visit Cellulitis Surgery/Surgery Date Post-Op Day # Date of Admission: Mar 04, 2016 at 00:34 Hospital Day # Subjective: Patient resting comfortably in bed in no acute distress. Patient recently underwent a bedside incision and drainage with washout and debridement of left fifth metatarsal wound. Postop General: No Complaints Gastrointestinal: Good Appetite Objective Vital Sign - Last Date Time Temp Pulse Resp B/P Pulse Ox O2 Delivery O2 Flow Rate FiO2 03/13/16 07:40 36.8 99 12 107/72 96 Room Air Intake and Output 03/12/16 03/12/16 03/13/16 Cumulative From/Thru 15:00 23:00 07:00 03/03/16 20:17 - 03/13/16 05:13 Intake Total 2741 ml 440 ml 26925 ml Output Total 4950 ml Balance 2741 ml 440 ml 80245 ml Intake Oral 2625 ml 440 ml 85957 ml IV Total 116 ml 4083 ml Output Urine Total 4950 ml # Voids 4 2 51 # Bowel Movements 1 5 Result Diagram: 03/13/16 0925 03/13/16 0925 Lab Test 03/03/16 21:36 03/03/16 22:10 03/06/16 00:13 03/06/16 06:40 Hemoglobin A1c 13.3% (4.8-5.6) Lactic Acid Level 1.7mmol/L (0.4-2.0) Urine HCG, Qualitative Negative (Negative) Urine Opiates Screen Negative Urine Methadone Screen Negative Urine Barbiturates Screen Negative Urine Amphetamines Screen Positive Urine Benzodiazepines Screen Negative Urine Cocaine Metabolite Screen Negative Urine Cannabinoids Screen Negative Vancomycin Level Trough 9.0mcg/mL Streptozyme 169.3IU/mL (0.0-200.0) Test 03/06/16 08:30 03/08/16 06:00 03/12/16 06:10 03/13/16 09:25 Hold Urine Received (Received) Hematology Comments Phosphorus Level 4.3mg/dL (2.5-4.9) White Blood Count 6.8th/mm3 (3.8-10.1) Red Blood Count 4.40mil/mm3 (3.90-5.20) Hemoglobin 13.1g/dL (12.0-15.6) Hematocrit 39.2% (35.0-46.0) Mean Corpuscular Volume 89.1fL (81-100) Mean Corpuscular Hemoglobin 29.8pg (27.0-35.0) Mean Corpuscular Hemoglobin Concent 33.4% (32.0-37.0) Red Cell Distribution Width 12.4% (12.3-15.4) Platelet Count 203bil/L (150-400) Neutrophils (%) (Auto) 53.0% (40-74) Lymphocytes (%) (Auto) 32.7% (14-46) Monocytes (%) (Auto) 10.4% (4-12) Eosinophils (%) (Auto) 3.4% (0-5) Basophils (%) (Auto) 0.4% (0-3) Erythrocyte Sedimentation Rate 20mm/hr (0-32) Sodium Level 133mEq/L (134-144) Potassium Level 4.3mEq/L (3.5-5.2) Chloride Level 93mEq/L (97-108) Carbon Dioxide Level 28mmol/L (18-29) Blood Urea Nitrogen 10mg/dL (6-24) Creatinine 0.42mg/dL (0.57-1.00) Estimat Glomerular Filtration Rate 233mL/min (>59) Glucose Level 153mg/dL (60-99) Calcium Level 8.9mg/dL (8.5-10.1) Magnesium Level 1.6mg/dL (1.6-2.6) Total Bilirubin 0.2mg/dL (0.0-1.2) Aspartate Amino Transf (AST/SGOT) 33U/L (0-50) Alanine Aminotransferase (ALT/SGPT) 45U/L (0-32) Alkaline Phosphatase 82U/L (25-150) C-Reactive Protein 0.6mg/dL (0.0-0.5) Total Protein 6.1g/dL (6.4-8.4) Albumin 3.6g/dL (3.4-5.0) Procalcitonin < 0.05ng/mL (See Comment) Exam General: Alert, Oriented X3, Cooperative Lower Extremities: Left: Edema localized (resolved) Extremity warm (erythema forefoot lateral, minimal) Lower Extremity Pulses: Palpable: Left Dorsalis Pedis Left Posterior Tibal Right Dorsalis Pedis Right Posterior Tibal Postop Sensory Motor: Decreased Sensation Podiatry WOUND : Wound Location/Description Left fifth metatarsal head dorsal lateral ulceration full-thickness to subcutaneous tissue without exposed bone or tendon there is no malodor. There is no sign of acute infection the wound bed is 50% granular and 50% fibrotic slough. This wound measures 1.4 cm x 0.8 cm x 0.4 cm in depth there is no surrounding erythema and minimal serosanguineous drainage Assessment & Plan Impression Stable left fifth metatarsal ulceration, healed left posterior heel wound Problems: (1) Abscess of foot excluding toes Plan: Dressing removed today and the wound was inspected there is no sign of continued infection at this point. A Betadine moistened dry sterile gauze dressing was applied with a Mepilex pad placed over the left posterior heel for extra additional padding. This dressing is to remain clean dry and intact for a period of 72 hours. Patient is stable for discharge to outpatient care today she will follow up either with myself or Dr. Lambert 3-5 days after discharge Continue antibiotic her Dr. Koch recommendation Status: Acute ICD Code: L02.619 (2) Cellulitis Qualifiers: Site of cellulitis: extremity Site of cellulitis of extremity: lower extremity Laterality: left Qualified Code: L03.116 - Cellulitis of left lower limb Status: Acute ICD Code: L03.90 VTE Prophylaxis: Sub-Q Heparin (Unfractionated) Boby Najera DPM Mar 13, 2016 14:39
--- NOTE | 2016-03-13 14:45 | NUR ---
Social Work Note Discharge Note: D/A: ID consult completed, please see note when it becomes available. As per nurse note, "per hospitalist, ID, and wound care/podiatry, pt to have PICC line placed and return for outpt antibiotics and wound care to her left foot. Pt agrees to this plan." SW met with Pt at bedside to discuss plan and discharge planning. Pt reports that she is being discharged home today to stay with a friend and her former partner will be providing transportation. Outpatient antibiotics and outpatient wound care also discussed. The Pt reports that early afternoons would be best, Outpatient M[facility] Food Production Manager informed. Outpatient wound care to be conducted by MD Lambert, as reported by Pt. SW and Pt discussed the importance of PICC line care and following through with recommendations regarding antibiotics and wound care. No additional needs identified. SW to follow if needs arise. P: Pt to be discharged today to a friends home in [place] with her former partner to provide POV transportation. Pt to have PICC line placed with six weeks of outpatient IV antibiotics and wound care. No additional needs identified. SW to follow if needs arise. Radha Martell MSW Refrigeration Installer MOISE Fermin
--- NOTE | 2016-03-13 16:07 | NUR ---
PICC pt taken down to PICC suite at 1350. consent signed by IV therapy.
--- NOTE | 2016-03-13 16:44 | PROG NOTE ---
[address] [address] PROGRESS NOTE PATIENT: ANGELA ARGUELLES : 1970 MR#: [id number] ADMIT: 03/04/2016 JOB ID: [id number] DATE: 03/13/2016 REASON FOR FOLLOWUP: Complex left foot infection with probable osteomyelitis. INTERVAL HISTORY: This is a complex case of a woman with poorly controlled diabetes who lives in her car. She came in with a polymicrobial left foot infection involving a heel abscess as well as a left forefoot lesion. MRI scanning as well as bone scanning was equivocal for the possible presence of osteo and we again discussed the case today in person with Dr. Najera of Podiatry who felt it was unlikely there was osteo there, but it probably would be reasonable to treated it in any event to make sure that it does not develop osteo. For her part, the patient feels well today. She denies fevers, chills, or sweats. She has minimal, if any, pain in her left foot and is looking forward to being discharged as early as today if possible. She has no pulmonary or GI symptoms. PHYSICAL EXAMINATION: Reveals an afebrile woman. Temp 36.8, pulse 99, respiratory rate 12, blood pressure 107/72. She is saturating 96% on room air. Examination of the mental status reveals it to be clear. Lungs are clear. Abdomen benign. The left lower extremity without edema. We carefully examined the left foot and removed all dressings. There is a small lesion along the left lateral forefoot just below the end of the 5th metatarsal. This lesion seems to be healing well and there is no purulence and minimal pain. The left heel ulcer is likewise doing very well with no evidence of fluctuance or tenderness. LABORATORIES: Include a white count of 6800 with a normal diff, sed rate 20, CRP is 0.6. Procalcitonin 0 x2. Streptozyme negative. Cultures from the heel grew group B strep and MSSA. Blood cultures and MRSA screen are negative. IMPRESSION: This patient by radiographic criteria has osteomyelitis though the podiatry team is not so certain. I favor the diagnosis of osteomyelitis and think we should treat her for a full six weeks. RECOMMENDATIONS: 1. Will convert the ertapenem to ceftriaxone for discharge med. 2. Ceftriaxone 2 g once a day will be continued through April 14 to complete six weeks. 3. I have ordered weekly labs. 4. I have ordered the MOC to give the ceftriaxone once a day, check the labs and send them to me. 5. Will go ahead and place a PICC line today. 6. I will follow this patient in my clinic with a tentative plan to see her on March 29. 7. ID will sign off at this time.
--- NOTE | 2016-03-13 16:50 | DRSVH ---
PROCEDURE: X-RAY PICC LINE PLACEMENT BY NURSE ([id number]) INDICATIONS: IVAB COMPARISON: None. FINDINGS: PICC was placed by the intravenous therapy team from the right side. Fluoroscopic spot fi lm demonstrates tip projected over the lower SVC. IMPRESSION: Tip of PICC projected over the lower SVC . Dictated by: Bossman NATHANA Interpreted: Ligia Sefl MD on 03/13/2016 at 16:49 Transcribed by: JARRED on 03/13/2016 at 16:50 Approved by: Ligia Self MD, PhD on 03/13/2016 at 17:07
--- NOTE | 2016-03-13 17:04 | NUR ---
back from PICC placement at 1700. Per IV therapy, no issues, pt has all PICC information. Per IV therapy, pt is ready to dc from their perspective.
--- NOTE | 2016-03-13 18:28 | NUR ---
Discharge Pt dc'd ambulatory with all belongings and no complaints at 1750 with ex and UA. All discharge instructions reviewed and pt verbalized understanding that she will return for outpatient antibiotics tomorrow as well as wound care. Pt will follow up with Dr. Koch. IV dc'd w/o complication. PICC instructions with patient.
--- NOTE | 2016-03-13 23:08 | PCM.PNMED ---
Subjective Date of Service Mar 13, 2016 Subjective Patient very much wants to go home. She apparently left the hospital for short period time and came back in and Bactrim a short time later. Apparently she did not know that this was against hospital policy. She was given a warning and never repeated the behavior. Exam Vital Signs Vital Sign - Last Date Time Temp Pulse Resp B/P Pulse Ox O2 Delivery O2 Flow Rate FiO2 03/13/16 07:40 36.8 99 12 107/72 96 Room Air Intake and Output 03/12/16 03/12/16 03/13/16 Cumulative From/Thru 15:00 23:00 07:00 03/03/16 20:17 - 03/13/16 05:13 Intake Total 2741 ml 440 ml 47951 ml Output Total 4950 ml Balance 2741 ml 440 ml 49056 ml Intake Oral 2625 ml 440 ml 68057 ml IV Total 116 ml 4083 ml Output Urine Total 4950 ml # Voids 4 2 51 # Bowel Movements 1 5 Exam General: Patient is in no apparent distress. She is laying comfortably flat in bed on her left side. HEENT: Head is atraumatic normocephalic. Eyes: Pupils are equally round and reactive to light and accommodation. Extraocular muscles are intact. Sclera are white anicteric. Subconjunctival mucosa is pink. Ears and nose are unremarkable. Oropharynx: There is no mucosal lesions, there is no thrush, there is no pharyngitis. Neck: Is supple, there are no nodes or masses or tenderness. Chest: Is clear to auscultation and percussion. There are no rales, rhonchi, wheezes or rubs. Heart: Rate rhythm is regular. There is no new murmur rub or gallop. Abdomen: Good bowel sounds are present. Abdomen is obese, soft, nontender, no organomegaly or masses were appreciated. Extremities: Are symmetrical and well perfused. The left foot dressing is clean dry and intact. Neurologic: There are no focal neurological deficits. Cranial nerves II through XII are intact. There are no sensory or motor deficits. Psychiatric: Patients mood is calm and shows no sign of agitation. Genital: Deferred Rectal: Deferred Lab and Diagnostics Result Diagram: 03/13/1692403/13/16924 Microbiology cultures pending X-Rays, CTs and MRIs Patient Name: ANGELA ARGUELLES MR#: [id number] Location: [facility] Ordering Phys: KYLAH MAY DO Date of Service: 03/03/162108 PROCEDURE: X-RAY LEFT FOOT, TWO VIEWS ([id number]) INDICATIONS: Cellulitis left foot TECHNIQUE: 2 views of the foot were acquired. COMPARISON: None. FINDINGS: Bones: No fractures or dislocations. No suspicious bony lesions. Soft tissues: No tibiotalar joint effusion. Achilles tendon appears normal. No soft tissue swelling. IMPRESSION: No acute radiographic findings. No findings to suggest osteomyelitis. Please note, plain film is less sensitive in the acute phases of osteomyelitis. If there is high clinical suspicion for osteomyelitis, contrast MRI of the foot is recommended. Dictated by: Catherine Wells M.D. on 03/03/2016 at 22:02 Approved by: Catherine Wells M.D. on 03/03/2016 at 22:02 PROCEDURE: X-RAY RIGHT SHOULDER, MINIMUM TWO VIEWS ([id number]) INDICATIONS: shoulder dislocation TECHNIQUE: 3 views of the shoulder were acquired. COMPARISON: None. FINDINGS: Bones: No fractures or dislocations. No suspicious bony lesions. Visualized ribs appear intact. Mild joint narrowing with periarticular osteophyte formation of the acromioclavicular and glenohumeral joints. Soft tissues: No calcific tendinitis or rotator cuff. IMPRESSION: Osteoarthritic changes and calcific tendinitis. Dictated by: Bossman [place]ar[place] Rishi Interpreted: Karan Al MD on 03/08/2016 at 11: 24 Transcribed by: RADHA on 03/08/2016 at 11:25 PROCEDURE: NM BONE SCAN THREE PHASE RADIOPHARMACEUTICAL: 26.6 mCi Tc-99m MDP IV. INDICATIONS: LEFT FOOT OSTEOMYLITIS. TECHNIQUE: Multiple bone scintigrams were obtained after intravenous injection of Tc-99m MDP, including flow, blood pool, and delayed images centered to the region of interest. COMPARISON: [facility], MR, MR FOREFOOT LT W&WO CON, 03/05/2016, 13: 39. [facility], CR, XR FOOT 2VW LT, 03/03/2016, 21:29. FINDINGS: The flow and blood pool images demonstrate increased activity in the lateral aspect of the distal left foot. On delayed images, there is focal uptake at the base of the left fifth toe. The scintigraphic findings are compatible with osteomyelitis at the base of the fifth toe. IMPRESSION: Suspect osteomyelitis at the base of the left fifth toe. Dictated by: Nazia Duncan M.D. on 03/08/2016 at 9:18 Approved by: Nazia Duncan M.D. on 03/08/2016 at 9:45 PROCEDURE: MRI FOREFOOT LEFT WITH AND WITHOUT CONTRAST ([id number]) INDICATIONS: Calcaneal and first metatarsal osteomyelitis. TECHNIQUE: Multiplanar, multisequence MR imaging of the forefoot and hindfoot was obtained without and with intravenous contrast. COMPARISON: [facility], , XR FOOT 2VW LT, 03/03/2016, 21:29. FINDINGS: Image quality: Motion artifact on multiple imaging sequences does result in image degradation in suboptimal evaluation for subtle bony and soft tissue abnormalities. Bones and joints: There is no displaced fracture or dislocation evident involving the osseous structures of the left forefoot, midfoot, or hindfoot. The midfoot and hindfoot bones are well-visualized and within normal limits without evidence of an acute fracture. Additionally, no abnormal signal or enhancement is evident involving the midfoot or hindfoot bones. Evaluation of the forefoot bones is limited on this examination related to motion artifact on all of the imaging sequences that includes the forefoot. Specifically, evaluation of the toes is inadequate on this examination. There is questionable edema involving the head of the fifth metatarsal and the corresponding proximal phalanx of the fifth metatarsal (image 19, series 20). There is questionable fracture involving the proximal phalanx of the fifth toe. The other fluid sensitive sequences through the forefoot are in suboptimal for evaluation of subtle marrow edema; however, there may be edema involving the phalanges of the fourth toe and fifth toe with corresponding enhancement. It is uncertain whether this edema is real or artifactual related to inhomogeneous fat suppression, as no definitive abnormal signal is appreciated on the conventional T1 images before contrast without fat suppression. Soft tissues: There is prominent soft tissue edema with corresponding enhancement identified along the lateral margin of the forefoot, which predominantly is seen along the distal margins of the fourth and fifth tarsometatarsal regions. These findings are more pronounced along the fifth tarsometatarsal region. Phlegmonous soft tissue changes with probable small loculated fluid collection along the lateral margin of the head of the fifth metatarsal is present, which demonstrates corresponding enhancement and tracks very near the level of the bone. The lung the dorsal aspect of the proximal phalanx of the fifth toe, there is a 1 cm structure demonstrating decreased signal intensity on all imaging sequences without surrounding artifact (image 18 , series 17 and image 18, series 24), which appears to represent a foreign body. There is a 2.0 x 1.3 cm fluid collection identified underlying the skin along the posterior margin of the heel (image 14, series 8) that is contained within the subcutaneous tissues. This is not necessarily abut the calcaneus. No definite additional fluid collections are evident within the forefoot or hindfoot. No significant atrophy of the intrinsic muscles of the forefoot are appreciated. The ligamentous structures of the forefoot are not well evaluated related to motion. The tendons of the forefoot appear to be within normal limits. The Lisfranc ligament appears intact. The Achilles tendon is within normal limits. Mild thickening of the medial band of the plantar fascia is present. IMPRESSION: 1. Prominent soft tissue edema along the lateral margin of the forefoot, centered at the fourth and fifth metatarsophalangeal joints without a drainable fluid collection evident. While this study is not diagnostic for osteomyelitis within this region, there likely is osteomyelitis of the head of the fifth metatarsal and the phalanges of the fifth toe. Artifact from motion and inhomogeneous fat suppression limits evaluation of the other toes. However, there is suspicion for osteomyelitis within the third and fourth toes as well. A 3 phase bone scan or repeat MRI when the patient is able to tolerate holding still to more definitively ascertain the bones within this region is recommended. 2. There appears to be a thin 1 cm foreign body (non metallic) along the dorsal aspect of the proximal phalanx of the fifth toe. Please correlate clinically. 3. Small posterior heel soft tissue abscess. No evidence of calcaneal osteomyelitis. 4. Questionable proximal phalangeal fifth toe fracture. Oblique x-ray imaging of the forefoot would be helpful for better evaluation. Dictated by: Tapan Ma M.D. on 03/05/2016 at 15:31 Approved by: Tapan Ma M.D. on 03/05/2016 at 15:51 Assessment & Plan 45yo female with a history of MRSA infection and uncontrolled diabetes mellitus admitted with diabetic foot infection / cellulitis acute, active #Diabetic foot infection / Cellulitis/with osteomyelitis confirmed by MRI and bone scan, acute, present on admission, moderate infection not meeting sepsis / SIRS criteria, h/o medical non-compliance. MRI 03/05 showed fifth metatarsal OM, heel abscess. s/p calcaneal abscess drainage 03/06 per Podiatry, culture pending. -Patient remained clinically stable -pt with strong history of MRSA infections, seen in urgent care, started 1g ceftriaxone, clindamycin given in ED, clinically responding, switched to Ertapenem per ID , await final culture sensitivity, so far group B streptococcus -pt had reported culture positive for gram-negative rods(from urgent care), no further report since. -Appreciate podiatry input, final consensus is OM, then will require detention tx. -appreciate ID for abx course upon d/c. Will discuss with Dr. Koch in a.m. for long-term treatment plan. #Uncontrolled diabetes mellitus, chronic, - Home dosing reported to be 50 units glargine twice daily; decreased to 40 units, increase back to 50unit, increase to 55unit 03/07 - pt seems not following dietary instruction, [id number] - ordered diabetic education, teaching. -Had lengthy discussion about importance of sugar control, medication #drug abuse, POA, amphetamine+ on UTOX although pt denied. Patient is on Adderall which is likely responsible for the urine drug screen positive result. -Patient left the hospital for short period time today and was told that she cannot do that again otherwise she will have to go to the emergency room for further care. -appreciate SW input, pt is poor candidate for IV abx via PICC as she is essentially homeless and has history of drug use. Will need to discuss discharge planning with Dr. Koch on Sunday. #Cervical radiculopathy, recent trauma on shoulder, POA, exam consistent to dislocation of the shoulder joint, xray negative for acute findings, continue pain control w/ motrin, OP follow up. chronic, stable #History of MRSA, ongoing, screen negative. #Tobacco dependence, chronic, ongoing, continue 21 mg nicotine patch available as needed - Discussed tobacco cessation, patient not considering quitting #Anxiety/depression, chronic, Continue home dosing of Adderall 30 mg 4 times daily, paliperidone 9 mg daily, lorazepam 1 mg 4 times daily as needed, aripiprazole 15 mg daily (decreased recently) - Holding Ambien 10 mg nightly at this time dispo: pending, living in her car, likely needs daily infusion at [facility] given drug abuse, appreciate ID input. We will discuss discharge planning with Dr. Koch on Sunday. DVT prophylaxis switch to LMWH qd Full code Diet - diabetic Pain Evaluation: Adequate Pain Control GI Prophylaxis: Not indicated VTE Prophylaxis: Sub-Q Heparin (Unfractionated) Resuscitation Status: CPR: Attempt Resuscitation TiffanyNnamdi MD Mar 13, 2016 23:08
--- NOTE | 2016-03-22 13:04 | PCM.DC.MED ---
Discharge Summary Date of Service Mar 13, 2016 Dates of Hospitalization Date of Hospital Admission Mar 04, 2016 at 00:34 Date of Discharge: Mar 13, 2016 Providers: Admitting Physician: Shea Weaver DO Primary Care Physician: Nopcp Attending Physician: Shea Weaver DO Diagnosis at Time of Discharge Diagnosis at Time of Discharge Osteomyelitis of the Left Foot Consultations Podiatry and Infectious Disease Procedures XRay, CTs & MRIs Patient Name: ANGELA CÁRDENAS MR#: [id number] Location: [facility] [place] Ordering Phys: KYLAH MAY DO Date of Service: 03/03/16 2109 PROCEDURE: X-RAY LEFT FOOT, TWO VIEWS ([id number]) INDICATIONS: Cellulitis left foot TECHNIQUE: 2 views of the foot were acquired. COMPARISON: None. FINDINGS: Bones: No fractures or dislocations. No suspicious bony lesions. Soft tissues: No tibiotalar joint effusion. Achilles tendon appears normal. No soft tissue swelling. IMPRESSION: No acute radiographic findings. No findings to suggest osteomyelitis. Please note, plain film is less sensitive in the acute phases of osteomyelitis. If there is high clinical suspicion for osteomyelitis, contrast MRI of the foot is recommended. Dictated by: Catherine Wells M.D. on 03/03/2016 at 22:02 Approved by: Catherine Wells M.D. on 03/03/2016 at 22:02 PROCEDURE: X-RAY RIGHT SHOULDER, MINIMUM TWO VIEWS ([id number]) INDICATIONS: shoulder dislocation TECHNIQUE: 3 views of the shoulder were acquired. COMPARISON: None. FINDINGS: Bones: No fractures or dislocations. No suspicious bony lesions. Visualized ribs appear intact. Mild joint narrowing with periarticular osteophyte formation of the acromioclavicular and glenohumeral joints. Soft tissues: No calcific tendinitis or rotator cuff. IMPRESSION: Osteoarthritic changes and calcific tendinitis. Dictated by: Bossman CAMACHO Interpreted: Karan Al MD on 03/08/2016 at 11: 24 Transcribed by: RADHA on 03/08/2016 at 11:25 PROCEDURE: NM BONE SCAN THREE PHASE RADIOPHARMACEUTICAL: 26.6 mCi Tc-99m MDP IV. INDICATIONS: LEFT FOOT OSTEOMYLITIS. TECHNIQUE: Multiple bone scintigrams were obtained after intravenous injection of Tc-99m MDP, including flow, blood pool, and delayed images centered to the region of interest. COMPARISON: [facility], MR, MR FOREFOOT LT W&WO CON, 03/05/2016, 13: 39. [facility], CR, XR FOOT 2VW LT, 03/03/2016, 21:29. FINDINGS: The flow and blood pool images demonstrate increased activity in the lateral aspect of the distal left foot. On delayed images, there is focal uptake at the base of the left fifth toe. The scintigraphic findings are compatible with osteomyelitis at the base of the fifth toe. IMPRESSION: Suspect osteomyelitis at the base of the left fifth toe. Dictated by: Nazia Duncan M.D. on 03/08/2016 at 9:18 Approved by: Nazia Duncan M.D. on 03/08/2016 at 9:45 PROCEDURE: MRI FOREFOOT LEFT WITH AND WITHOUT CONTRAST ([id number]) INDICATIONS: Calcaneal and first metatarsal osteomyelitis. TECHNIQUE: Multiplanar, multisequence MR imaging of the forefoot and hindfoot was obtained without and with intravenous contrast. COMPARISON: [facility], CR, XR FOOT 2VW LT, 03/03/2016, 21:29. FINDINGS: Image quality: Motion artifact on multiple imaging sequences does result in image degradation in suboptimal evaluation for subtle bony and soft tissue abnormalities. Bones and joints: There is no displaced fracture or dislocation evident involving the osseous structures of the left forefoot, midfoot, or hindfoot. The midfoot and hindfoot bones are well-visualized and within normal limits without evidence of an acute fracture. Additionally, no abnormal signal or enhancement is evident involving the midfoot or hindfoot bones. Evaluation of the forefoot bones is limited on this examination related to motion artifact on all of the imaging sequences that includes the forefoot. Specifically, evaluation of the toes is inadequate on this examination. There is questionable edema involving the head of the fifth metatarsal and the corresponding proximal phalanx of the fifth metatarsal (image 19, series 20). There is questionable fracture involving the proximal phalanx of the fifth toe. The other fluid sensitive sequences through the forefoot are in suboptimal for evaluation of subtle marrow edema; however, there may be edema involving the phalanges of the fourth toe and fifth toe with corresponding enhancement. It is uncertain whether this edema is real or artifactual related to inhomogeneous fat suppression, as no definitive abnormal signal is appreciated on the conventional T1 images before contrast without fat suppression. Soft tissues: There is prominent soft tissue edema with corresponding enhancement identified along the lateral margin of the forefoot, which predominantly is seen along the distal margins of the fourth and fifth tarsometatarsal regions. These findings are more pronounced along the fifth tarsometatarsal region. Phlegmonous soft tissue changes with probable small loculated fluid collection along the lateral margin of the head of the fifth metatarsal is present, which demonstrates corresponding enhancement and tracks very near the level of the bone. The lung the dorsal aspect of the proximal phalanx of the fifth toe, there is a 1 cm structure demonstrating decreased signal intensity on all imaging sequences without surrounding artifact (image 18 , series 17 and image 18, series 24), which appears to represent a foreign body. There is a 2.0 x 1.3 cm fluid collection identified underlying the skin along the posterior margin of the heel (image 14, series 8) that is contained within the subcutaneous tissues. This is not necessarily abut the calcaneus. No definite additional fluid collections are evident within the forefoot or hindfoot. No significant atrophy of the intrinsic muscles of the forefoot are appreciated. The ligamentous structures of the forefoot are not well evaluated related to motion. The tendons of the forefoot appear to be within normal limits. The Lisfranc ligament appears intact. The Achilles tendon is within normal limits. Mild thickening of the medial band of the plantar fascia is present. IMPRESSION: 1. Prominent soft tissue edema along the lateral margin of the forefoot, centered at the fourth and fifth metatarsophalangeal joints without a drainable fluid collection evident. While this study is not diagnostic for osteomyelitis within this region, there likely is osteomyelitis of the head of the fifth metatarsal and the phalanges of the fifth toe. Artifact from motion and inhomogeneous fat suppression limits evaluation of the other toes. However, there is suspicion for osteomyelitis within the third and fourth toes as well. A 3 phase bone scan or repeat MRI when the patient is able to tolerate holding still to more definitively ascertain the bones within this region is recommended. 2. There appears to be a thin 1 cm foreign body (non metallic) along the dorsal aspect of the proximal phalanx of the fifth toe. Please correlate clinically. 3. Small posterior heel soft tissue abscess. No evidence of calcaneal osteomyelitis. 4. Questionable proximal phalangeal fifth toe fracture. Oblique x-ray imaging of the forefoot would be helpful for better evaluation. Dictated by: Tapan Ma M.D. on 03/05/2016 at 15:31 Approved by: Tapan Ma M.D. on 03/05/2016 at 15:51 Brief History The patient is a 45yo female with a history of medical noncompliance, MRSA infection and uncontrolled diabetes mellitus admitted with diabetic foot infection / cellulitis. Patient states that 3-4 days ago she began having increased erythema and pain in her left lower extremity. She denies fever, chills, lightheadedness, dizziness. No discharge has been visualized however Ms. Cárdenas is concerned that there is an abscess underneath the calcaneal callus on the LLE. She was seen in urgent care prior to ED presentation and given 1gm ceftriaxone. On presentation vitals signs wnl except mildly elevated HR at 107, CBC wnl, and bmp with elevated blood glucose of 450, crp 1.5. Patient was admitted to the [facility] Course 45yo female with a history of MRSA infection and uncontrolled diabetes mellitus admitted with diabetic foot infection / cellulitis acute, active #Diabetic foot infection / Cellulitis/with osteomyelitis confirmed by MRI and bone scan, acute, present on admission, moderate infection not meeting sepsis / SIRS criteria, h/o medical non-compliance. MRI 03/05 showed fifth metatarsal OM, heel abscess. s/p calcaneal abscess drainage 03/06 per Podiatry, culture pending. -Patient remained clinically stable -pt with strong history of MRSA infections, seen in urgent care, started 1g ceftriaxone, clindamycin given in ED, clinically responding, switched to Ertapenem per ID , await final culture sensitivity, so far group B streptococcus -pt had reported culture positive for gram-negative rods(from urgent care), no further report since. -Appreciate podiatry input, final consensus is OM, then will require usp tx. -Patient was seen with Dr. Koch today and appreciate ID for abx course upon d /c. We have discussed with Dr. Koch in a.m. for long-term treatment plan today.It nwas decided to treat the patient for osteomyelitis with a six week course of IV antibiotics with Rocephin. Patient will come to the infusion center daily by bus for her antibiotic infusion. #Uncontrolled diabetes mellitus, chronic, - Home dosing reported to be 50 units glargine twice daily; decreased to 40 units, increase back to 50unit, increase to 55unit 03/07 - pt seems not following dietary instruction, [id number] - ordered diabetic education, teaching. -Had lengthy discussion about importance of sugar control, medication #drug abuse, POA, amphetamine+ on UTOX although pt denied. Patient is on Adderall which is likely responsible for the urine drug screen positive result. -Patient left the hospital for short period time today and was told that she cannot do that again otherwise she will have to go to the emergency room for further care. -appreciate SW input, pt is poor candidate for IV abx via PICC as she is essentially homeless and has history of drug use. Will need to discuss discharge planning with Dr. Koch on Sunday. #Cervical radiculopathy, recent trauma on shoulder, POA, exam consistent to dislocation of the shoulder joint, xray negative for acute findings, continue pain control w/ motrin, OP follow up. chronic, stable #History of MRSA, ongoing, screen negative. #Tobacco dependence, chronic, ongoing, continue 21 mg nicotine patch available as needed - Discussed tobacco cessation, patient not considering quitting #Anxiety/depression, chronic, Continue home dosing of Adderall 30 mg 4 times daily, paliperidone 9 mg daily, lorazepam 1 mg 4 times daily as needed, aripiprazole 15 mg daily (decreased recently) - Holding Ambien 10 mg nightly at this time dispo: pending, living in her car, and needs daily infusion at [facility]. She agrees to come to the [facility] daily for IV antibiotics for six weeks. Patient to be discharge today. DVT prophylaxis switch to LMWH qd Full code Diet - diabetic Exam Exam General: Patient is in no apparent distress. She is laying comfortably flat in bed. HEENT: Head is atraumatic normocephalic. Eyes: Pupils are equally round and reactive to light and accommodation. Extraocular muscles are intact. Sclera are white anicteric. Subconjunctival mucosa is pink. Ears and nose are unremarkable. Oropharynx: There is no mucosal lesions, there is no thrush, there is no pharyngitis. Neck: Is supple, there are no nodes or masses or tenderness. Chest: Is clear to auscultation and percussion. There are no rales, rhonchi, wheezes or rubs. Heart: Rate rhythm is regular. There is no new murmur rub or gallop. Abdomen: Good bowel sounds are present. Abdomen is obese, soft, nontender, no organomegaly or masses were appreciated. Extremities: Are symmetrical and well perfused. The left foot was examined with Dr. Koch and areas of inflammation and cellulitis have clearly improved. Neurologic: There are no focal neurological deficits. Cranial nerves II through XII are intact. There are no sensory or motor deficits. Psychiatric: Patients mood is calm and shows no sign of agitation. Genital: Deferred Rectal: Deferred Test 03/03/16 21:36 03/03/16 22:10 03/06/16 00:13 03/06/16 06:40 Hemoglobin A1c 13.3% (4.8-5.6) Lactic Acid Level 1.7mmol/L (0.4-2.0) Urine HCG, Qualitative Negative (Negative) Urine Opiates Screen Negative Urine Methadone Screen Negative Urine Barbiturates Screen Negative Urine Amphetamines Screen Positive Urine Benzodiazepines Screen Negative Urine Cocaine Metabolite Screen Negative Urine Cannabinoids Screen Negative Vancomycin Level Trough 9.0mcg/mL Streptozyme 169.3IU/mL (0.0-200.0) Test 03/06/16 08:30 03/08/16 06:00 03/12/16 06:10 03/13/16 09:25 Hold Urine Received (Received) Hematology Comments Phosphorus Level 4.3mg/dL (2.5-4.9) White Blood Count 6.8th/mm3 (3.8-10.1) Red Blood Count 4.40mil/mm3 (3.90-5.20) Hemoglobin 13.1g/dL (12.0-15.6) Hematocrit 39.2% (35.0-46.0) Mean Corpuscular Volume 89.1fL (81-100) Mean Corpuscular Hemoglobin 29.8pg (27.0-35.0) Mean Corpuscular Hemoglobin Concent 33.4% (32.0-37.0) Red Cell Distribution Width 12.4% (12.3-15.4) Platelet Count 203bil/L (150-400) Neutrophils (%) (Auto) 53.0% (40-74) Lymphocytes (%) (Auto) 32.7% (14-46) Monocytes (%) (Auto) 10.4% (4-12) Eosinophils (%) (Auto) 3.4% (0-5) Basophils (%) (Auto) 0.4% (0-3) Erythrocyte Sedimentation Rate 20mm/hr (0-32) Sodium Level 133mEq/L (134-144) Potassium Level 4.3mEq/L (3.5-5.2) Chloride Level 93mEq/L (97-108) Carbon Dioxide Level 28mmol/L (18-29) Blood Urea Nitrogen 10mg/dL (6-24) Creatinine 0.42mg/dL (0.57-1.00) Estimat Glomerular Filtration Rate 233mL/min (>59) Glucose Level 153mg/dL (60-99) Calcium Level 8.9mg/dL (8.5-10.1) Magnesium Level 1.6mg/dL (1.6-2.6) Total Bilirubin 0.2mg/dL (0.0-1.2) Aspartate Amino Transf (AST/SGOT) 33U/L (0-50) Alanine Aminotransferase (ALT/SGPT) 45U/L (0-32) Alkaline Phosphatase 82U/L (25-150) C-Reactive Protein 0.6mg/dL (0.0-0.5) Total Protein 6.1g/dL (6.4-8.4) Albumin 3.6g/dL (3.4-5.0) Procalcitonin < 0.05ng/mL (See Comment) Microbiology Results cultures pending Discharge Medications Discharge Medications Amphet Asp/Amphet/D-Amphet (Adderall) 30 Mg Tablet 30 MG PO QID Prescribed by: GURDEEP ALLEN MD Aripiprazole (Abilify) 30 Mg Tablet 15 MG PO DAILY Prescribed by: GURDEEP ALLEN MD Glipizide ER (Glipizide ER) 5 Mg Tab.er.24 5 MG PO BID Prescribed by: GURDEEP ALLEN MD Insulin Glargine (Lantus U100 Insulin Vial) 100 Unit/Ml Vial 60 UNIT SUBQ BID Prescribed by: GURDEEP ALLEN MD Insulin Regular, Human (HUMulin-R U100 Insulin Vial) 100 Unit/1 Ml Vial 8 UNIT SUBQ TID-INSULIN Prescribed by: GURDEEP ALLEN MD Metformin (Glucophage) 1,000 Mg Tablet 1,000 MG PO BIDWM Prescribed by: GURDEEP ALLEN MD Miconazole Nitrate (Miconazole Nitrate) 7 Appl/45 Gm Cream.appl 1 APPFUL VAGINAL DAILY Prescribed by: GURDEEP ALLEN MD Nicotine 21 mg/24 hr Patch (Nicotine 21 mg/24 hr Patch) 1 Each Patch.td24 1 PATCH TOPICAL Q24H Prescribed by: GURDEEP ALLEN MD Paliperidone ER (Invega) 9 Mg Tablet.er 9 MG PO DAILY Prescribed by: GURDEEP ALLEN MD Sertraline HCl (Sertraline) 100 Mg Tablet 150 MG PO HS Prescribed by: GURDEEP ALLEN MD As needed Hydrocodone-Acetaminophen 5-325 mg (Hydrocodone-Acetaminophen 5-325 mg) 1 Each Tablet 1 EACH PO Q6 PRN PRN For Pain Prescribed by: GURDEEP ALLEN MD Ibuprofen (Ibuprofen) 400 Mg Tablet 400 MG PO Q6H PRN PRN For Pain Prescribed by: GURDEEP ALLEN MD Lorazepam (Lorazepam) 1 Mg Tablet 1 MG PO QID PRN PRN For Anxiety Prescribed by: GURDEEP ALLEN MD Zolpidem (Ambien) 5 Mg Tab 10 MG PO HS PRN PRN For Insomnia (Reported) Additional med instructions Patient is to complete six weeks of IV Rocephin once a day as an outpatient. Followup Plan Disposition: Patient is being discharged home. Discharge Diet: Diabetic Discharge Activity: No restrictions (May increase daily activity gradually as tolerated.) Follow-up with PCP in: 1 week (Patient has a referral to a new PCP at home. She will follow up with that DrGisell after she gets home) Provider: Lashon Lambert DPM Follow-up in: 1 week (Patient is to follow up in 48 hours) Time spent Time taken to discharge this patient was over 30 minutes, over half of of which was involved in counseling and the coordination of care. Nnamdi Allen MD Mar 22, 2016 13:04
== END 2016-03-13 17:50 | disposition home or self-care (01) | DRG 623 ==
LOC: SED 19:50 → MPC 03-04 00:34 → OBSVTOIN 03-04 00:34 → MPC 03-04 01:16 → MOC 03-06 12:37
PROVIDERS: ADMIT Internal Medicine; ATTEND Internal Medicine
PROC: 0H9NXZX Drainage of Left Foot Skin, External Approach, Diagnostic (ICD-10-PCS; principal; 2016-03-06)
PROC: 0JBR0ZZ Excision of Left Foot Subcutaneous Tissue and Fascia, Open Approach (ICD-10-PCS; 2016-03-10)
DX: E11.69 Type 2 diabetes mellitus with other specified complication (principal); L02.612 Cutaneous abscess of left foot; M86.172 Other acute osteomyelitis, left ankle and foot; L03.116 Cellulitis of left lower limb; E11.621 Type 2 diabetes mellitus with foot ulcer; E11.65 Type 2 diabetes mellitus with hyperglycemia; E11.42 Type 2 diabetes mellitus with diabetic polyneuropathy; M54.12 Radiculopathy, cervical region; F31.9 Bipolar disorder, unspecified; F41.8 Other specified anxiety disorders; F90.9 Attention-deficit hyperactivity disorder, unspecified type; F15.10 Other stimulant abuse, uncomplicated; B95.1 Streptococcus, group B, as the cause of diseases classified elsewhere; M75.91 Shoulder lesion, unspecified, right shoulder; B95.61 Methicillin susceptible Staphylococcus aureus infection as the cause of diseases classified elsewhere; Z91.19 Patient's noncompliance with other medical treatment and regimen; Z86.14 Personal history of Methicillin resistant Staphylococcus aureus infection; Z89.422 Acquired absence of other left toe(s); Z79.4 Long term (current) use of insulin; F17.200 Nicotine dependence, unspecified, uncomplicated

== ENCOUNTER 2016-07-15 21:42 | Emergency (ER) | payer MEDICARE, OTHER ==
[~2016-07-15 21:42] MED LIST changes: +IBUP400T22 PO; +MICO45CR10 VAGINAL; +NICO1PAT6 TOPICAL; -SULF1TAB7 PO
[2016-07-15 21:54] VITALS: BP 153/98; PULSE 111; RESP 26; O2SAT 99
--- NOTE | 2016-07-15 22:54 | ED.REPORT ---
HPI-Psychiatric Illness Date of Service Jul 15, 2016 ED Provider: Galindo Cobian MD A 45 year old female with a history of medical noncompliance, bipolar disorder and uncontrolled diabetes mellitus with frequent cellulitis presents to the ED with lutheran delusions that began just prior to arrival. Patient was found laying down in a parking lot repeating the phrase "repent". She states that " God is rocking the world and causing division" and "people need to suffer their sins and repent". Patient believes that she is meant to suffer her sins and help others do the same. She admits to meth use this morning "instead of Adderall". She denies suicidal ideation but reports that she will "succumb to her illnesses" and has not noncompliant with her insulin. Nursing Notes Stated Complaint: MENTAL EVAL Chief Complaint: Psychiatric Complaint Nursing Notes Reviewed: Yes Allergies: Coded Allergies: sitagliptin (Verified Allergy, Severe, hallucinations, 07/15/16) oxycodone (Verified Adverse Reaction, Intermediate, n/v, 07/15/16) Scheduled Amphet Asp/Amphet/D-Amphet (Adderall) 30 Mg Tablet 30 MG PO QID Aripiprazole (Abilify) 30 Mg Tablet 15 MG PO DAILY Glipizide ER (Glipizide ER) 5 Mg Tab.er.24 5 MG PO BID Insulin Glargine (Lantus U100 Insulin Vial) 100 Unit/Ml Vial 60 UNIT SUBQ BID Insulin Regular, Human (HUMulin-R U100 Insulin Vial) 100 Unit/1 Ml Vial 8 UNIT SUBQ TID-INSULIN Metformin (Glucophage) 1,000 Mg Tablet 1,000 MG PO BIDWM Miconazole Nitrate (Miconazole Nitrate) 7 Appl/45 Gm Cream.appl 1 APPFUL VAGINAL DAILY Nicotine 21 mg/24 hr Patch (Nicotine 21 mg/24 hr Patch) 1 Each Patch.td24 1 PATCH TOPICAL Q24H Paliperidone ER (Invega) 9 Mg Tablet.er 9 MG PO DAILY Sertraline HCl (Sertraline) 100 Mg Tablet 150 MG PO HS Scheduled PRN Hydrocodone-Acetaminophen 5-325 mg (Hydrocodone-Acetaminophen 5-325 mg) 1 Each Tablet 1 EACH PO Q6 PRN PRN For Pain Ibuprofen (Ibuprofen) 400 Mg Tablet 400 MG PO Q6H PRN PRN For Pain Lorazepam (Lorazepam) 1 Mg Tablet 1 MG PO QID PRN PRN For Anxiety Zolpidem (Ambien) 5 Mg Tab 10 MG PO HS PRN PRN For Insomnia General Time Seen by MD: 22:46 Chief Complaint Bizarre behavior Hx Obtained From: Patient Arrived By: Walk-in Onset Occurred: Just prior to arrival Symptom Duration: Since onset Associated with: Reports: Agitation, Delusions Pertinent Negative: Pt denies other symptoms Recent Healthcare: No recent hospitalization, Recent doctor visit Risk-Psychiatric Illness Suicide Risk Stratification Suicide Risk Factors - Adult: : Substance abuse RF Statements: Risk factors reviewed Past Medical History Past Medical History Per old reports -DM type II -Bipolar disorder -Ectopic ovarian cyst -Kidney stone -Migraines -Depression Past Surgical History "Kidney surgery" per old reports Smoking History Current Every Day Smoker Social History Alcohol Use: Denies alcohol use Drug Use: Meth Other Social History: Local resident Occupation lives with roommates Ambulatory Status Independent Review of Systems Psychiatric: Reports: Agitation, Delusional, Stress, Denies: Homicidal ideation, Suicidal ideation Complete sys rev & neg: except as marked. Physical Exam Initial Vital Signs Vital Signs (First) Date Time Temp Pulse Resp B/P Pulse Ox O2 Delivery O2 Flow Rate FiO2 07/15/16 21:54 36.2 111 26 153/98 99 Room Air Initial VS: Reviewed, Vital signs abnormal Head / Eyes: Atraumatic, Normocephalic, PERRL Neck: Supple, Non-tender, Full range of motion Extremities: Vascular intact, Neuro intact, No swelling, No tenderness Skin: Warm, Dry, No cyanosis General/Constitutional: Awake, Alert Neurologic: Oriented X3, Speech NL, No motor deficits, No sensory deficits Psychiatric: Not suicidal, Not homicidal Abnormal Mood/Affect: Positive: Pressured speech PSYCH: Taoist delusions Interpretation & Diagnostics Lab Results Interpretation Result Diagram: 07/15/16 2310 07/15/16 2310 Test 07/15/16 23:10 07/16/16 00:03 White Blood Count 9.0th/mm3 (3.8-10.1) Red Blood Count 4.68mil/mm3 (3.90-5.20) Hemoglobin 14.3g/dL (12.0-15.6) Hematocrit 40.4% (35.0-46.0) Mean Corpuscular Volume 86.3fL (81-100) Mean Corpuscular Hemoglobin 30.6pg (27.0-35.0) Mean Corpuscular Hemoglobin Concent 35.4% (32.0-37.0) Red Cell Distribution Width 12.7% (12.3-15.4) Platelet Count 167bil/L (150-400) Neutrophils (%) (Auto) 70.8% (40-74) Lymphocytes (%) (Auto) 20.5% (14-46) Monocytes (%) (Auto) 6.6% (4-12) Eosinophils (%) (Auto) 1.7% (0-5) Basophils (%) (Auto) 0.3% (0-3) Sodium Level 136mEq/L (134-144) Potassium Level 4.0mEq/L (3.5-5.2) Chloride Level 98mEq/L (97-108) Carbon Dioxide Level 23mmol/L (18-29) Blood Urea Nitrogen 13mg/dL (6-24) Creatinine 0.48mg/dL (0.57-1.00) Estimat Glomerular Filtration Rate 199mL/min (>59) Glucose Level 205mg/dL (60-99) Calcium Level 10.0mg/dL (8.5-10.1) Total Bilirubin 0.6mg/dL (0.0-1.2) Aspartate Amino Transf (AST/SGOT) 11U/L (0-50) Alanine Aminotransferase (ALT/SGPT) 15U/L (0-32) Alkaline Phosphatase 69U/L (25-150) Total Protein 7.0g/dL (6.4-8.4) Albumin 4.4g/dL (3.4-5.0) Thyroid Stimulating Hormone (TSH) 1.080uIU/mL (0.450-4.500) Hold Urine Received (Received) Lab values outside NL range: no clinical significance. Lab Results Interpretation: Mildly elevated nonfasting glucose. Re-Eval/Medical Decision Med Decision/Clinical Course 45-year-old female with a long history of paranoid delusions. This time she has been using methamphetamines so that is a likely contributor. She was quite agitated and at one point attempted to leave the AMA by elopement. She was given sedation with Benadryl Ativan and Haldol. She will be seen later this morning by the oncoming provider when she is awake alert and oriented with the talk. Re-Evaluation/Progress #1: Time of Eval: 12:29 Re-Evaluation/Progress Note: [id number] evaluation is performed. Patient attempted to elope and was able to be redirected back to her room. She will be placed in seclusion at this time. Re-Evaluation/Progress #2: Time of Eval: 02:35 Re-Evaluation/Progress Note: [id number] evaluation. Patient is sleeping comfortably and was taken out of seclusion 1 hour ago. Counseled Regarding: Diagnosis, Lab results Discharge & Departure Shift Change Sign-Out Patient Care Transferred: Yes Discussed Complaint(s): Yes Laboratory Evaluation: Lab evaluation discussed Additonal Information: Dr. Maynard Discharge Condition All VS Reviewed: Yes Condition: Stable Referrals: NOPCP (PCP) Care Transferred to: Dr. Maynard Care Transferred at: 06:00 Robson Attestation Portions of this note were transcribed by Radha Marshall. I, Dr. Cobian personally performed the history, physical exam and medical decision-making; I reviewed and confirmed the accuracy of the information in the transcribed note. Signed by: Robson Friedman, 07/16/16 0500. Galindo Cobian MD Jul 15, 2016 22:54 RADHA MARSHALL Jul 15, 2016 23:38
[2016-07-15] MEDS ORDERED: diphenhydrAMINE 50 mg Capsule PO ONE (23:20)
[2016-07-15] MEDS ORDERED: LORazepam 2 mg Tablet PO ONE (23:20)
[2016-07-15 23:21] LABS: BASOPHILS % (AUTO) 0.3 % (0-3); EOSINOPHILS % (AUTO) 1.7 % (0-5); MONOCYTES % (AUTO) 6.6 % (4-12); Mean Corpuscular Hemoglobin 30.6 pg (27.0-35.0); Mean Corpuscular Volume 86.3 fL (81-100); NEUTROPHILS % (AUTO) 70.8 % (40-74); Platelet Count 167 bil/L (150-400)
[2016-07-15] MEDS ORDERED: diphenhydrAMINE 25 mg Capsule PO ONE (23:30)
[2016-07-16 10:30] VITALS: BP 136/78; PULSE 78; RESP 15; O2SAT 95
[2016-07-16] MEDS ORDERED: IBUP800T28 PO (12:40)
[2016-07-16] MEDS ORDERED: BENZ2TAB7 PO (12:52)
[2016-07-16] MEDS ORDERED: [UNRECOGNIZED DRUG - CODE] PO (12:52)
[2016-07-16] MEDS ORDERED: OMEP20TA86 PO (12:52)
[2016-07-16] MEDS ORDERED: SERT100T PO (12:52)
[2016-07-16 13:07] VITALS: BP 113/73; PULSE 103; RESP 18; O2SAT 96
== END 2016-07-16 13:15 | disposition home or self-care (01) ==
LOC: SED 21:42
DX: F15.150 Other stimulant abuse with stimulant-induced psychotic disorder with delusions (principal); E11.65 Type 2 diabetes mellitus with hyperglycemia; F31.9 Bipolar disorder, unspecified; F17.200 Nicotine dependence, unspecified, uncomplicated; Z79.4 Long term (current) use of insulin; Z79.84 Long term (current) use of oral hypoglycemic drugs; Z88.5 Allergy status to narcotic agent; Z88.8 Allergy status to other drugs, medicaments and biological substances

== ENCOUNTER 2016-08-03 15:35 | Emergency (ER) | payer MEDICARE, MEDICAID ==
[~2016-08-03] VITALS: Ht 170.2 cm; Wt 76.0 kg
[~2016-08-03 15:35] MED LIST changes: +BENZ2TAB7 PO; -HYDR-4003 PO; -IBUP400T22 PO; +IBUP800T28 PO; -METF1000 PO; -MICO45CR10 VAGINAL; -NICO1PAT6 TOPICAL; +OMEP20TA86 PO; +SERT100T PO; -SERT100T9 PO; -ZLP5T PO; +[UNRECOGNIZED DRUG - CODE] PO
[2016-08-03 15:41] VITALS: BP 116/52; PULSE 82; RESP 15; O2SAT 96
--- NOTE | 2016-08-03 17:05 | ED.REPORT ---
HPI-Psychiatric Illness Date of Service Aug 03, 2016 ED Provider: Helen Maynard MD Patient is 45 year old female with a hx of DM, bipolar, depression, and anxiety who presents to the ED from shelter. [facility] called [facility] for concern she needed to be detained. She was sent to the emergency department for medical clearance with the expectation of a DCR evaluation. At the shelter she was refusing to take her DM medication and per patient, she was anxious and hallucinating. She states "I thought the end of the world had come and people were being thrown into hell". She reports that she had not been taking her medications because she has been unable to obtain them. She denies fever, abdominal pain, or any other symptoms. Nursing Notes Stated Complaint: MENTAL EVAL Chief Complaint: Psychiatric Complaint Nursing Notes Reviewed: Yes Allergies: Coded Allergies: sitagliptin (Verified Allergy, Severe, hallucinations, 08/03/16) oxycodone (Verified Adverse Reaction, Intermediate, n/v, 08/03/16) Scheduled Amphet Asp/Amphet/D-Amphet (Adderall) 30 Mg Tablet 30 MG PO QID Aripiprazole (Abilify) 30 Mg Tablet 15 MG PO DAILY Benztropine Mesylate (Benztropine Mesylate) 2 Mg Tablet 2 MG PO BID Glipizide ER (Glipizide ER) 5 Mg Tab.er.24 5 MG PO BID Insulin Glargine (Lantus U100 Insulin Vial) 100 Unit/Ml Vial 60 UNIT SUBQ BID Insulin Regular, Human (HUMulin-R U100 Insulin Vial) 100 Unit/1 Ml Vial 8 UNIT SUBQ TID-INSULIN Metformin ER (Glumetza) 1,000 Mg Tablet 2,000 MG PO DAILY Omeprazole (Omeprazole) 20 Mg Tablet.dr 20 MG PO DAILY Paliperidone ER (Invega) 9 Mg Tablet.er 9 MG PO DAILY Sertraline HCl (Zoloft) 100 Mg Tablet 150 MG PO DAILY Scheduled PRN Ibuprofen (Ibuprofen) 800 Mg Tablet 800 MG PO TID PRN PRN For Pain Lorazepam (Lorazepam) 1 Mg Tablet 1 MG PO QID PRN PRN For Anxiety General Time Seen by MD: 15:43 Chief Complaint Hallucinations, visual Hx Obtained From: Patient, Police Arrived By: Police Progression Since Onset: Resolved Risk-Psychiatric Illness Suicide Risk Stratification Suicide Risk Factors - Adult: : Substance abuseNo: Access to firearms RF Statements: Risk factors reviewed Past Medical History Past Medical History Per old reports -DM type II -Bipolar disorder -Ectopic ovarian cyst -Kidney stone -Migraines -Depression -anxiety -MRSA -Hernia Reports: Asthma Past Surgical History "Kidney surgery" per old reports Nose surgery Smoking History Current Every Day Smoker Social History Alcohol Use: Denies alcohol use Drug Use: Meth Other Social History: Local resident Occupation lives with roommates Ambulatory Status Independent Review of Systems Constitutional: Denies: Fever GI: Denies: Abdominal pain Psychiatric: Reports: Anxiety, Hallucinations, auditory, Hallucinations, visual Complete sys rev & neg: except as marked. Physical Exam Initial Vital Signs Vital Signs (First) Date Time Temp Pulse Resp B/P Pulse Ox O2 Delivery O2 Flow Rate FiO2 08/03/16 15:41 36.5 82 15 116/52 96 Room Air Initial VS: Reviewed Head / Eyes: Atraumatic, Normocephalic Neck: Full range of motion Respiratory: Breath sounds normal, Clear to auscultation, No respiratory distress Cardiovascular: Regular rate & rhythm, Heart sounds normal, Intact distal pulses Abdomen / GI: Soft, Non-tender Skin: Warm, Dry General/Constitutional: Awake, Alert, Well appearing Neurologic: Oriented X3, Speech NL Abnormal Thinking / Perception: Positive: Delusions - paranoid Fixed, paranoid delusions Calm, cooperative Interpretation & Diagnostics Lab Results Interpretation Result Diagram: 08/03/16 1720 08/03/16 1720 Test 08/03/16 17:20 08/03/16 19:20 White Blood Count 7.1th/mm3 (3.8-10.1) Red Blood Count 4.13mil/mm3 (3.90-5.20) Hemoglobin 12.5g/dL (12.0-15.6) Hematocrit 37.1% (35.0-46.0) Mean Corpuscular Volume 89.8fL (81-100) Mean Corpuscular Hemoglobin 30.3pg (27.0-35.0) Mean Corpuscular Hemoglobin Concent 33.7% (32.0-37.0) Red Cell Distribution Width 13.0% (12.3-15.4) Platelet Count 178bil/L (150-400) Neutrophils (%) (Auto) 63.0% (40-74) Lymphocytes (%) (Auto) 24.8% (14-46) Monocytes (%) (Auto) 8.3% (4-12) Eosinophils (%) (Auto) 3.5% (0-5) Basophils (%) (Auto) 0.4% (0-3) Sodium Level 140mEq/L (134-144) Potassium Level 3.9mEq/L (3.5-5.2) Chloride Level 104mEq/L (97-108) Carbon Dioxide Level 22mmol/L (18-29) Blood Urea Nitrogen 8mg/dL (6-24) Creatinine 0.37mg/dL (0.57-1.00) Estimat Glomerular Filtration Rate 269mL/min (>59) Glucose Level 214mg/dL (60-99) Calcium Level 8.7mg/dL (8.5-10.1) Total Bilirubin 0.2mg/dL (0.0-1.2) Aspartate Amino Transf (AST/SGOT) 18U/L (0-50) Alanine Aminotransferase (ALT/SGPT) 31U/L (0-32) Alkaline Phosphatase 66U/L (25-150) Total Protein 5.8g/dL (6.4-8.4) Albumin 3.7g/dL (3.4-5.0) Thyroid Stimulating Hormone (TSH) 0.366uIU/mL (0.450-4.500) Hold Urine Received (Received) Lab Results Interpretation: Urine tox positive for THC, methadone, and amphetamines Re-Eval/Medical Decision Re-Evaluation/Progress : Time of Eval: 19:55 )( Re-Eval Psychiatric: Clear for psych facility, Clear to rel to police Re-Evaluation/Progress Note: Discussed plan for discharge with close follow up. Patient understands and agrees with plan. All questions addressed at this time. Consultation : Consulted With: lasting floorworker Call Returned at: 19:30 Note: Discussed pt's case. Social work evaluated pt and she is safe for discharge. [facility] does not need to evaluate her. Counseled Regarding: Diagnosis, Need for follow-up, When/why to return to ED Discharge & Departure Impression: Primary Impression: Anxiety Additional Impression: Schizoaffective disorder Schizoaffective disorder type: unspecified Qualified Code: F25.9 - Schizoaffective disorder, unspecified )( Condition at Discharge: Clear for psych facility, Clear to rel to police Disposition: Home Discharge Condition All VS Reviewed: Yes Condition: Stable Additional Instructions: You have been focused and appropriate in the ER today You need to get re-established with a psychiatrist as well as a primary care provider to get back on medications the you have been on when you are more stable. You will need a psychiatric provider to help with this. Our social service assistant has given you a list of providers. you will need to make phone calls to schedule an appointment torrow you also need to work on finding another primary care provider. Given the phone number for You can also call the [facility] and see if there are primary care providers available If you feel that you are getting worse, you can return to the ER. We do not do medication refills in the ER. Referrals: [facility] (PCP) Scribe Attestation Portions of this note were transcribed by Konstantin Elise. I, Dr. Maynard personally performed the history, physical exam and medical decision-making; I reviewed and confirmed the accuracy of the information in the transcribed note. Signed by: Konstantin Elise 08/03/16, 2005 Helen Maynard MD Aug 03, 2016 17:05 KONSTANTIN ELISE Aug 03, 2016 19:07
[2016-08-03 17:29] LABS: BASOPHILS % (AUTO) 0.4 % (0-3); EOSINOPHILS % (AUTO) 3.5 % (0-5); MONOCYTES % (AUTO) 8.3 % (4-12); Mean Corpuscular Hemoglobin 30.3 pg (27.0-35.0); Mean Corpuscular Volume 89.8 fL (81-100); Platelet Count 178 bil/L (150-400)
[2016-08-03 20:27] VITALS: BP 133/62; PULSE 98; RESP 16; O2SAT 98
== END 2016-08-03 20:28 | disposition home or self-care (01) ==
LOC: SED 15:38
DX: F41.8 Other specified anxiety disorders (principal); F25.9 Schizoaffective disorder, unspecified; J45.909 Unspecified asthma, uncomplicated; E11.9 Type 2 diabetes mellitus without complications; F31.9 Bipolar disorder, unspecified; F17.200 Nicotine dependence, unspecified, uncomplicated; Z79.4 Long term (current) use of insulin; Z79.84 Long term (current) use of oral hypoglycemic drugs; Z88.5 Allergy status to narcotic agent; Z88.8 Allergy status to other drugs, medicaments and biological substances

== ENCOUNTER 2016-09-08 23:30 | Emergency (ER) | payer MEDICARE, MEDICAID ==
[2016-09-08] MEDS ORDERED: Haloperidol 5 mg/mL Inj IM ONE (23:40)
[2016-09-09 00:24] VITALS: BP 136/86; PULSE 114; RESP 24; O2SAT 99
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
[2016-09-09 01:30] LABS: BASOPHILS % (AUTO) 0.3 % (0-3); EOSINOPHILS % (AUTO) 1.4 % (0-5); MONOCYTES % (AUTO) 7.6 % (4-12); Mean Corpuscular Hemoglobin 30.8 pg (27.0-35.0); Mean Corpuscular Volume 89.5 fL (81-100); NEUTROPHILS % (AUTO) 72.9 % (40-74); Platelet Count 205 bil/L (150-400)
[2016-09-09] MEDS: Haloperidol 5 mg/mL Inj IM PRN ×2 (08:28→09:32)
[2016-09-09 09:39] VITALS: BP 111/69; PULSE 100; RESP 20; O2SAT 97
[2016-09-09] MEDS ORDERED: PALIPERIDONE 3 MG PO SCH (09:45)
[2016-09-09] MEDS ORDERED: Insulin GLARgine 100 Unit/mL Syringe SUBQ SCH (09:45)
[2016-09-09] MEDS ORDERED: LORazepam 1 mg Tablet PO PRN (09:45)
[2016-09-09 13:59] VITALS: BP 124/81; PULSE 98; RESP 20; O2SAT 94
[2016-09-09 18:14] VITALS: BP 134/90; PULSE 91; RESP 16; O2SAT 97
== END 2016-09-09 18:14 | disposition home or self-care (01) ==
LOC: SED 23:30
DX: F30.9 Manic episode, unspecified (principal); F15.10 Other stimulant abuse, uncomplicated; E11.9 Type 2 diabetes mellitus without complications; F17.200 Nicotine dependence, unspecified, uncomplicated; Z79.4 Long term (current) use of insulin; Z79.84 Long term (current) use of oral hypoglycemic drugs; Z88.5 Allergy status to narcotic agent
CPT/HCPCS: 36415; 80053; 84443; 85025; 96372; 99285; G0480; J1200; J1630; J1815; J2060

== ENCOUNTER 2016-09-14 23:42 | Emergency (ER) | payer MEDICARE, MEDICAID ==
[2016-09-14 23:55] VITALS: BP 141/87; PULSE 110; RESP 22; O2SAT 96
[2016-09-14] MEDS ORDERED: Haloperidol 5 mg/mL Inj ONE (23:56)
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
[2016-09-15] MEDS ORDERED: Haloperidol 5 mg/mL Inj IM ONE
[2016-09-15 01:18] LABS: BASOPHILS % (AUTO) 0.4 % (0-3); EOSINOPHILS % (AUTO) 2.7 % (0-5); MONOCYTES % (AUTO) 7.6 % (4-12); Mean Corpuscular Volume 89.8 fL (81-100); NEUTROPHILS % (AUTO) 72.5 % (40-74); Platelet Count 152 bil/L (150-400)
[2016-09-15 02:07] LABS: Magnesium 1.8 mg/dL (1.6-2.6)
[2016-09-15 12:53] VITALS: BP 128/79; PULSE 98; RESP 20; O2SAT 97
== END 2016-09-15 15:29 | disposition home or self-care (01) ==
LOC: SED 23:42
DX: F15.10 Other stimulant abuse, uncomplicated (principal); J45.909 Unspecified asthma, uncomplicated; E11.9 Type 2 diabetes mellitus without complications; F41.9 Anxiety disorder, unspecified; F17.200 Nicotine dependence, unspecified, uncomplicated; Z86.14 Personal history of Methicillin resistant Staphylococcus aureus infection; Z79.84 Long term (current) use of oral hypoglycemic drugs; Z79.4 Long term (current) use of insulin; Z88.5 Allergy status to narcotic agent
CPT/HCPCS: 36415; 80053; 82550; 83735; 85025; 90791; 96372; 99284; J1200; J1630; J2060